=== PATIENT | male | born 1975 | race Caucasian/White ===

== ENCOUNTER 2017-11-10 21:21 | Emergency (ER) | payer MEDICAID, SELFPAY ==
[2017-11-10 21:23] VITALS: BP 159/95; PULSE 70; RESP 18; TEMP 36.6; O2SAT 98; BMI 34.2
[2017-11-10] MEDS: Triamcinolone Acetonide 40 MG/ML Vial IM (21:45)
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
--- NOTE | 2017-11-10 21:46 | ED.DEP ---
ED Disposition - Plan for ED Patient: Disposition: Home or Assisted Living Chief Complaint: Itching Instructions: ED Dermatitis Poison Mallorie Referrals: Daisy Graves MD [Primary Care Provider] - As Needed
[2017-11-10 22:04] VITALS: RESP 18
== END 2017-11-10 22:04 | disposition home or self-care (01) ==
LOC: ED 21:50
PROVIDERS: Emergency Provider Emergency Medicine
DX: L23.7 Allergic contact dermatitis due to plants, except food (principal); T25.221A Burn of second degree of right foot, initial encounter; X17.XXXA Contact with hot engines, machinery and tools, initial encounter; Y93.9 Activity, unspecified; Y92.9 Unspecified place or not applicable; Y99.9 Unspecified external cause status; Q61.3 Polycystic kidney, unspecified; I10 Essential (primary) hypertension; Z79.899 Other long term (current) drug therapy
CPT/HCPCS: 96372; 99282

== ENCOUNTER 2019-02-02 22:18 | Emergency (ER) | payer MEDICAID, SELFPAY ==
[2019-02-02 22:21] VITALS: BP 147/99; PULSE 77; RESP 16; TEMP 36.6; O2SAT 97; BMI 34.0
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
--- NOTE | 2019-02-02 22:40 | RAD_ITS ---
STUDY: X-RAY - RIGHT SHOULDER REASON FOR EXAM: Male, 43 years old. Trauma TECHNIQUE: 4 view(s) of the shoulder. COMPARISON: None. FINDINGS: There is mild degenerative arthrosis of the glenohumeral articulation. Normal acromioclavicular joint. Normal acromion. Normal humeral head and visualized proximal humerus. The soft tissue structures are unremarkable. Normal visualized pulmonary apex. RAD/Shoulder min 2 Views IMPRESSION: Mild degenerative changes of the glenohumeral joint. Electronically Signed: Boyd Blackwell MD at 23:03 EDT , Service support ,
[2019-02-02] MEDS: HYDROcodone Bitartrate/Apap 5/325 Tablet PO (22:41)
[2019-02-02 23:03] VITALS: BP 130/78; PULSE 77; RESP 18; O2SAT 100
== END 2019-02-02 23:03 | disposition home or self-care (01) ==
LOC: ED 22:40
PROVIDERS: Emergency Provider Emergency Medicine; Family Provider Nurse Practitioner Primary Care; PCP Nurse Practitioner Primary Care
DX: S49.91XA Unspecified injury of right shoulder and upper arm, initial encounter (principal); Y00.XXXA Assault by blunt object, initial encounter; Q61.3 Polycystic kidney, unspecified; N18.9 Chronic kidney disease, unspecified; Z79.899 Other long term (current) drug therapy
CPT/HCPCS: 73030; 99283

== ENCOUNTER 2019-06-23 16:49 | Emergency (ER) | payer MEDICAID, SELFPAY ==
[2019-06-23 16:50] VITALS: BP 153/106; PULSE 70; RESP 15; TEMP 36.9; O2SAT 99; BMI 35.6
--- NOTE | 2019-06-23 17:19 | EKG12_ITS ---
Test Reason : ABN LABS Blood Pressure : / mmHG Vent. Rate : 067 BPM Atrial Rate : 067 BPM P-R Int : 146 ms QRS Dur : 084 ms QT Int : 394 ms P-R-T Axes : 034 025 033 degrees QTc Int : 416 ms Normal sinus rhythm Normal ECG Confirmed by TEODORA PATEL ([id number]), story editor ARABELLA MÁRQUEZ ([id number]) on 06/26/2019 3:37:10 PM Referred By: DENICE/JOE Confirmed By:TEODORA PATEL
--- NOTE | 2019-06-23 17:19 | ED.VIS.GEN ---
History of Present Illness Chief Complaint: Abn Labs Informant: Patient, PCP Narrative: Patient was sent from PCPs office secondary to elevated potassium level. Patient was seen in the office today for depression. Due to desire to start a new medication labs were sent. Patient does have a history of chronic renal failure secondary to polycystic kidneys. His creatinine returned at 2.32, and nurse practitioner tells me that his baseline from September 2018 was 2.02. His potassium returned at 6.3. On arrival here patient states he has no physical complaints. He has been drinking plenty of water. 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 - Past Medical History (1) Depression Status: Chronic (2) History of chronic renal failure Status: Chronic (3) History of polycystic kidney disease Status: Chronic Past Medical History - Allergies and Home Meds Allergies/Adverse Reactions: Allergies No Known Allergies Allergy (Verified 02/02/19 22:19) Primary Care Physician: Suzanne Edwards NP-C [Primary Care Provider] - Surgical History: noncontributory Smoking Status: Never smoker Review of Systems General: Denies: Chills, Fever Eyes: Denies: Visual changes - bilaterally ENT: Denies: Bilateral ear pain Cardiovascular: Denies: Chest pain, Palpitations Respiratory: Denies: Dyspnea, Cough Gastrointestinal: Denies: Abdominal pain, Nausea, Vomiting, Diarrhea Genitourinary: Denies: Dysuria Musculoskeletal: Denies: Extremity Pain Neurological: Denies: Headache Hematologic: Denies: Easy bruising, Easy bleeding Allergy: Denies: Uticaria Physical Exam Vital Signs/Narrative: Vital Signs Temp Pulse Resp BP Pulse Ox 06/23/19 16:50 98.5 F 70 15 153/106 H 99 Inital Vital Signs reviewed: Yes General: Well nourished, Well developed Head: Normocephalic ENT: Moist mucous membranes Neck: Supple Cardiovascular: Regular rate, Regular rhythm Respiratory: No distress, CTA bilaterally Abdomen: Soft, Nontender Extremities: Nontender Skin: Normal color, No rash Neurological: Alert, Oriented x3 Psychological: Normal affect Diagnostic/Tx/Re-eval Laboratory Results 06/23/19 06/23/19 17:25 17:25 WBC 7.6 RBC 5.01 Hgb 14.2 Hct 44.6 MCV 89.0 MCH 28.3 MCHC 31.8 L RDW Std Deviation 44.9 H RDW Coeff of Martita 13.8 Plt Count 242 MPV 10.3 Immature Gran % (Auto) 0.400 Neut % (Auto) 53.1 Lymph % (Auto) 31.5 [place] % (Auto) 9.6 Eos % (Auto) 4.7 Baso % (Auto) 0.7 Absolute Neuts (auto) 4.1 Absolute Lymphs (auto) 2.41 Nucleated RBC % 0 Sodium 140 Potassium 5.2 H Chloride 111 H Carbon Dioxide 26.0 Anion Gap 3 L BUN 37 H Creatinine 2.31 H Estim Creat Clear Calc 45.64 Est GFR (MDRD) Af Amer 39 L Est GFR (MDRD) Non-Af 33 L BUN/Creatinine Ratio 16.0 Glucose 107 H Calcium 9.2 - EKG Initial EKG Interpretation: Sinus Rhythm - Sinus at 67 with no acute ischemia. No T wave changes that would be consistent with hyperkalemia. - Medical Decision Making Patient is given a liter of IV fluids. On repeat evaluation is resting comfortably and continues to have no complaints. He will be given outpatient lab order to have labs repeated on Wednesday. He is also referred to Dr. Varghese from nephrology. ED Disposition - Plan for ED Patient: Disposition: Home or Assisted Living Diagnosis: Hyperkalemia Instructions: Hyperkalemia Referrals: Suzanne Edwards NP-Millie [Primary Care Provider] - Tamika Varghese DO [STAFF PHYSICIAN] - 1-2 Weeks Additional Instructions: Your potassium level is at the upper limit of normal tonight. Please have your labs repeated on Wednesday as discussed.
[2019-06-23] MEDS: 0.9% Normal Saline 1,000 ML 1000 ML IV (17:27)
[2019-06-23 17:31] VITALS: BP 146/99; PULSE 72; RESP 14; O2SAT 98
[2019-06-23 17:33] LABS: Absolute Lymphocyte Count 2.41 X10^3/uL (0.83-4.51); Absolute Neutrophil Count 4.1 X10^3/uL (2.0-7.7); Basophil# 0.05 X10^3/uL; Basophil% 0.7 % (0-1); Eosinophil# 0.36 X10^3/uL; Eosinophils% 4.7 % (0-5); Hematocrit 44.6 % (40-54); Hemoglobin 14.2 g/dL (13.0-16.5); Lymphocyte # 2.41 X10^3/ul (4.0); Lymphocyte % 31.5 % (19-41); Mean Corp Hgb Conc 31.8 g/dL (32-36); Mean Corpuscular Hgb 28.3 pg (27.0-32.0); Mean Platelet Vol. 10.3 fl (6.2-12.0); Monocyte# 0.73 X10^3/uL; Monocyte% 9.6 % (0-10); NRBC Flagged by Analyzer 0 % (0-5); Neutrophil # 4.06 X10^3/uL (2.7-7.7); Neutrophil % 53.1 % (47-70); Platelet Count 242 K/mm3 (150-450); RBC Distribution Width CV 13.8 % (11.6-14.6); RBC Distribution Width SD 44.9 fl (35.1-43.9); Red Blood Count 5.01 M/mm3 (4.6-6.2); White Blood Count 7.6 K/mm3 (4.4-11.0)
[2019-06-23 17:53] LABS: Anion Gap 3 (5-15); BUN 37 mg/dL (7-18); Calcium,Total 9.2 mg/dL (8.5-10.1); Chloride 111 mmol/L (98-107); Creatinine, Serum 2.31 mg/dL (0.70-1.30); EST Glomerular Filtration Rate 33 mL/min (>60); Est Glom Filt Rate - Afr Amer 39 mL/min (>60); Estimated Creatinine Clearance 45.64 ml/min; Glucose 107 mg/dL (74-106); Potassium 5.2 mmol/L (3.5-5.1); Sodium Level 140 mmol/L (136-145)
[2019-06-23 18:03] VITALS: BP 162/95; PULSE 64; RESP 18; O2SAT 99
== END 2019-06-23 18:30 | disposition home or self-care (01) ==
PROVIDERS: Emergency Provider Emergency Medicine; PCP Nurse Practitioner Primary Care
DX: E87.5 Hyperkalemia (principal); N18.9 Chronic kidney disease, unspecified; Q61.3 Polycystic kidney, unspecified; F32.9 Major depressive disorder, single episode, unspecified; Z79.899 Other long term (current) drug therapy
CPT/HCPCS: 80048; 85025; 93005; 96360; 99284; J7030; A4216

== ENCOUNTER → 2019-09-13 12:57 | Outpatient (CLI) | payer MEDICAID, SELFPAY ==
[2019-09-13 13:49] LABS: Hematocrit 42.3 % (40-54); Hemoglobin 13.3 g/dL (13.0-16.5); Mean Corp Hgb Conc 31.4 g/dL (32-36); Mean Corpuscular Hgb 27.8 pg (27.0-32.0); Mean Corpuscular Volume 88.5 fL (80-94); Mean Platelet Vol. 10.9 fl (6.2-12.0); Platelet Count 270 K/mm3 (150-450); RBC Distribution Width CV 13.9 % (11.6-14.6); RBC Distribution Width SD 44.3 fl (35.1-43.9); Red Blood Count 4.78 M/mm3 (4.6-6.2); White Blood Count 9.6 K/mm3 (4.4-11.0)
[2019-09-13 14:25] LABS: Vitamin D,25 Hydroxy 25.1 ng/mL
[2019-09-13 14:32] LABS: ALB/GLOB Ratio 0.7 RATIO (0.9-2.4); AST(SGOT) 25 U/L (15-37); Alanine Aminotransfer ALT/SGPT 27 U/L (16-61); Albumin, Serum 3.3 g/dL (3.2-5.0); Alkaline Phosphatase 73 U/L (45-117); Anion Gap 7 (5-15); BUN 46 mg/dL (7-18); BUN/Creat Ratio 17.2 RATIO (10-20); Calcium,Total 9.4 mg/dL (8.5-10.1); Chloride 107 mmol/L (98-107); Cholesterol 203 mg/dL (200); Creatinine, Serum 2.67 mg/dL (0.70-1.30); EST Glomerular Filtration Rate 28 mL/min (>60); Est Glom Filt Rate - Afr Amer 33 mL/min (>60); Globulin 4.5 g/dL (2.2-4.2); Glucose 125 mg/dL (74-106); High Density Lipoprotein 36 mg/dL; Potassium 4.6 mmol/L (3.5-5.1); Protein, Total 7.8 g/dL (6.4-8.2); Sodium Level 140 mmol/L (136-145); T4 Free Direct 0.92 ng/dL (0.76-1.46); Thyroid Stim Hormone (TSH) 1.04 uIU/mL (0.358-3.74); Triglycerides 233 mg/dL; Very Low Density Lipoprotein 47 mg/dL (5-40)
== END ==
PROVIDERS: PCP Nurse Practitioner Primary Care; Referring Provider Nurse Practitioner Primary Care; Visit Provider Nurse Practitioner Primary Care
DX: I12.9 Hypertensive chronic kidney disease with stage 1 through stage 4 chronic kidney disease, or unspecified chronic kidney disease (principal); N18.3 Chronic kidney disease, stage 3 (moderate); E03.9 Hypothyroidism, unspecified
CPT/HCPCS: 36415; 80053; 80061; 82306; 84439; 84443; 85027

== ENCOUNTER → 2019-10-11 11:19 | Outpatient (CLI) | payer MEDICAID, SELFPAY ==
[2019-10-11 11:42] LABS: Color, Urine Yellow (Yellow); Glucose, Dipstick Normal (Normal); Ketone-Dipstick Negative (Negative); Leukocyte Esterase-Dipstick 25 /ul (Negative); Nitrite-Dipstick Negative (Negative); Occult Blood-Urine 25 /ul (Negative); Protein-Dipstick 100 mg/dl (Negative); Urine Bilirubin Dipstick Negative (Negative); Urine Clarity Sl. Cloudy (Clear); Urine Urobilinogen Normal (Normal)
[2019-10-11 11:43] LABS: Hematocrit 43.7 % (40-54); Hemoglobin 13.6 g/dL (13.0-16.5); Mean Corp Hgb Conc 31.1 g/dL (32-36); Mean Corpuscular Volume 90.1 fL (80-94); Mean Platelet Vol. 10.6 fl (6.2-12.0); Platelet Count 284 K/mm3 (150-450); RBC Distribution Width CV 13.6 % (11.6-14.6); Red Blood Count 4.85 M/mm3 (4.6-6.2); White Blood Count 9.1 K/mm3 (4.4-11.0)
[2019-10-11 11:54] LABS: Protein, Urine (Random) 82.1 mg/dL (<11.9); Protein:Creat Ratio 1781 mg/g CRE (0-200)
[2019-10-11 12:04] LABS: Uric Acid 4.2 mg/dL (3.5-7.2)
== END ==
PROVIDERS: PCP Nurse Practitioner Primary Care; Referring Provider Student in an Organized Health Care Education/Training Program; Visit Provider Student in an Organized Health Care Education/Training Program
DX: Q61.3 Polycystic kidney, unspecified (principal)
CPT/HCPCS: 36415; 81002; 82570; 84156; 84550; 85027

== ENCOUNTER → 2020-05-20 10:06 | Outpatient (CLI) | payer MEDICAID, SELFPAY ==
[2020-05-20 10:54] LABS: Absolute Lymphocyte Count 2.16 X10^3/uL (0.83-4.51); Absolute Neutrophil Count 5.9 X10^3/uL (2.0-7.7); Basophil# 0.06 X10^3/uL; Basophil% 0.6 % (0-1); Eosinophil# 0.54 X10^3/uL; Eosinophils% 5.6 % (0-5); Hematocrit 41.4 % (40-54); Hemoglobin 12.9 g/dL (13.0-16.5); Lymphocyte # 2.16 X10^3/ul (4.0); Lymphocyte % 22.3 % (19-41); Mean Corp Hgb Conc 31.2 g/dL (32-36); Mean Corpuscular Hgb 27.9 pg (27.0-32.0); Mean Corpuscular Volume 89.6 fL (80-94); Mean Platelet Vol. 10.8 fl (6.2-12.0); Monocyte# 1.03 X10^3/uL; Monocyte% 10.6 % (0-10); NRBC Flagged by Analyzer 0 % (0-5); Neutrophil # 5.87 X10^3/uL (2.7-7.7); Neutrophil % 60.6 % (47-70); Platelet Count 282 K/mm3 (150-450); RBC Distribution Width CV 13.6 % (11.6-14.6); RBC Distribution Width SD 44.8 fl (35.1-43.9); Red Blood Count 4.62 M/mm3 (4.6-6.2); White Blood Count 9.7 K/mm3 (4.4-11.0)
[2020-05-20 11:24] LABS: PTHIN 97.5 pg/mL (18.4-80.1)
[2020-05-20 11:29] LABS: Protein, Urine (Random) 160.6 mg/dL (<11.9); Protein:Creat Ratio 2996 mg/g CRE (0-200); Vitamin D,25 Hydroxy 15.4 ng/mL
[2020-05-20 11:53] LABS: Albumin, Serum 3.3 g/dL (3.2-5.0); BUN 42 mg/dL (7-18); BUN/Creat Ratio 11.7 RATIO (10-20); Calcium,Total 9.7 mg/dL (8.5-10.1); Chloride 110 mmol/L (98-107); EST Glomerular Filtration Rate 19 mL/min (>60); Est Glom Filt Rate - Afr Amer 24 mL/min (>60); Ferritin 142 ng/mL (26-388); Glucose 129 mg/dL (74-106); Iron 82 ug/dL (65-175); Iron Binding Capacity,Total 335 ug/dL (250-450); PERCENT IRON SATURATION 24.5 % (15.0-55.0); Phosphorus 4.7 mg/dL (2.5-4.9); Potassium 5.1 mmol/L (3.5-5.1); Rheumatoid Factor < 10.0 IU/mL (<15); Sodium Level 140 mmol/L (136-145); T4 Free Direct 0.89 ng/dL (0.76-1.46); Thyroid Stim Hormone (TSH) 2.66 uIU/mL (0.358-3.74); Uric Acid 3.8 mg/dL (3.5-7.2)
[2020-05-21 15:21] LABS: ANTINUCLEAR ANTIBODIES DIRECT Negative (Negative)
== END ==
PROVIDERS: PCP Nurse Practitioner Primary Care; Referring Provider Nurse Practitioner Primary Care; Visit Provider Nurse Practitioner Primary Care
DX: M25.50 Pain in unspecified joint (principal); E03.9 Hypothyroidism, unspecified; Q61.3 Polycystic kidney, unspecified; E55.9 Vitamin D deficiency, unspecified; M10.9 Gout, unspecified
CPT/HCPCS: 36415; 80069; 82306; 82570; 82728; 83540; 83550; 83970; 84156; 84439; 84443; 84550; 85025; 86038; 86431

== ENCOUNTER → 2020-06-20 12:14 | Outpatient (CLI) | payer MEDICAID, SELFPAY ==
[2020-06-20 13:14] LABS: Absolute Lymphocyte Count 1.94 X10^3/uL (0.83-4.51); Absolute Neutrophil Count 5.8 X10^3/uL (2.0-7.7); Basophil# 0.09 X10^3/uL; Eosinophil# 0.46 X10^3/uL; Eosinophils% 5.2 % (0-5); Hematocrit 43.4 % (40-54); Hemoglobin 13.2 g/dL (13.0-16.5); Lymphocyte # 1.94 X10^3/ul (4.0); Lymphocyte % 21.7 % (19-41); Mean Corp Hgb Conc 30.4 g/dL (32-36); Mean Corpuscular Hgb 27.3 pg (27.0-32.0); Mean Corpuscular Volume 89.9 fL (80-94); Mean Platelet Vol. 10.7 fl (6.2-12.0); Monocyte# 0.58 X10^3/uL; Monocyte% 6.5 % (0-10); NRBC Flagged by Analyzer 0 % (0-5); Neutrophil # 5.82 X10^3/uL (2.7-7.7); Neutrophil % 65.3 % (47-70); Platelet Count 307 K/mm3 (150-450); RBC Distribution Width CV 13.9 % (11.6-14.6); RBC Distribution Width SD 46.5 fl (35.1-43.9); Red Blood Count 4.83 M/mm3 (4.6-6.2); White Blood Count 8.9 K/mm3 (4.4-11.0)
[2020-06-20 13:23] LABS: Protein, Urine (Random) 136.4 mg/dL (<11.9); Protein:Creat Ratio 2312 mg/g CRE (0-200)
[2020-06-20 13:53] LABS: Anion Gap 4 (5-15); BUN 56 mg/dL (7-18); BUN/Creat Ratio 15.1 RATIO (10-20); Calcium,Total 9.8 mg/dL (8.5-10.1); Chloride 109 mmol/L (98-107); EST Glomerular Filtration Rate 19 mL/min (>60); Est Glom Filt Rate - Afr Amer 23 mL/min (>60); Glucose 156 mg/dL (74-106); Potassium 5.2 mmol/L (3.5-5.1); Sodium Level 139 mmol/L (136-145)
[2020-06-20 13:55] LABS: PTHIN 215.3 pg/mL (18.4-80.1)
[2020-06-20 13:59] LABS: Vitamin D,25 Hydroxy 19.8 ng/mL
== END ==
PROVIDERS: PCP Nurse Practitioner Primary Care; Referring Provider Student in an Organized Health Care Education/Training Program; Visit Provider Student in an Organized Health Care Education/Training Program
DX: N18.4 Chronic kidney disease, stage 4 (severe) (principal); E55.9 Vitamin D deficiency, unspecified
CPT/HCPCS: 36415; 80048; 82306; 82570; 83970; 84156; 85025

== ENCOUNTER 2021-04-23 12:18 | Inpatient (IN) | payer MEDICAID, SELFPAY ==
[2021-04-23 12:19] VITALS: BP 132/88; PULSE 84; RESP 19; TEMP 37.7; O2SAT 93; BMI 35.9
--- NOTE | 2021-04-23 12:24 | EDS_ITS ---
HPI History of Present Illness Chief Complaint: General Illness Informant: patient Onset/Context/Timing Onset: Days Context: Gradual Onset Timing: Continuous Current Severity: Mild Maximum Severity: Moderate Narrative Narrative: 45-year-old male unvaccinated day 8 of symptoms including cough, fever and chills and body aches. No nausea or vomiting. He had 1 day loose stools which is since resolved. History of hypertension, gout and chronic kidney disease. Prior similar symptoms: No Recent Illness/Hospitalization: No PFSH PFSH Medical History Asthma Depression Hypertension Hypothyroidism Migraines Polycystic kidney disease Home Medications atenolol 50 mg PO DAILY 04/08/13 [History Last Taken 11/10/17] paroxetine HCl [Paxil] 40 mg PO DAILY 04/08/13 [History Last Taken 11/10/17] pravastatin 80 mg PO DAILY 11/10/17 [History Last Taken 11/10/17] losartan 25 mg PO DAILY 02/02/19 [History Last Taken Unknown] allopurinol 300 mg PO DAILY 04/23/21 [History Last Taken Unknown] amlodipine 2.5 mg PO DAILY 04/23/21 [History Last Taken Unknown] famotidine 20 mg PO QHS 04/23/21 [History Last Taken Unknown] levothyroxine 100 mcg PO DAILY 04/23/21 [History Last Taken Unknown] trazodone 50 mg PO DAILY 04/23/21 [History Last Taken Unknown] Allergy/AdvReac Type Severity Reaction Status Date / Time No Known Allergies Allergy Verified 04/23/21 12:22 Social History Smoking Status: Never smoker ROS ROS ED ROS Narrative Cough, fever, chills, body aches. Review of Systems ROS Unobtainable: Denies due to encephalopathy Constitutional Constitutional ED: Reports chills and fever(s) Eyes Eyes: Denies change in vision ENT ENT ED: Denies ear pain Cardiovascular Cardiovascular: Denies chest pain or palpitations Respiratory/Chest Respiratory/Chest: Reports cough and dyspnea Gastrointestinal Gastrointestinal: Reports diarrhea; Denies abdominal pain, nausea or vomiting Genitourinary Genitourinary ED: Denies dysuria Musculoskeletal Musculoskeletal: Reports myalgias Integumentary Denies rash Neurologic Neurologic: Reports headache(s) Psychiatric Psychiatric: Denies depression Endocrine Endocrinology: Denies polyuria Allergic/Immunologic Allergic/Immunologic ED: Denies urticaria EXAM Physical Exam Narrative Exam Narrative: 45-year-old male no acute distress. Vital signs stable. Pulse ox 93% on room air no hypoxia. H EENT dry mucous membranes. No erythema. Neck nontender no lymphadenopathy. No JVD. Lungs clear to auscultation. Heart regular rhythm no murmur rate about 85. Abdomen obese soft nontender normal bowel sounds no peritoneal signs. Moving all 4 extremities. Calves are nontender without edema or cords. Neurologically awake and alert with no focal motor deficits. Const Vital Signs: 04/23/21 12:19 04/23/21 12:27 04/23/21 14:02 Temperature 99.9 F H 99.9 F H Temperature Source Oral Temporal Pulse Rate 84 85 Respiratory Rate 19 H 19 H Respiratory Effort Normal Non-Labored Respiratory Pattern Normal Blood Pressure 132/88 H 111/73 Blood Pressure Mean 102 85 Pulse Ox 93 97 Oxygen Delivery Method Room Air Room Air Positive well nourished, well developed and obese; Negative for cachectic, contractures or unkempt General Appearance ED: well developed and NAD; Negative for unkempt, cachectic or contractures Nutritional Appearance: obese; Negative for cachectic HEENT Reports dry mucous membranes Negative for trauma or tenderness Mouth ED: Yes dry mucous membranes Mouth: dry mucous membranes Eyes PERRL and EOMs intact bilaterally Neck no lymphadenopathy, supple and no JVD General: Negative for tenderness Chest Wall inspection of chest normal and palpation of chest normal Resp normal respiratory effort and clear to auscultation bilaterally Auscultation: Negative for rales, rhonchi or wheezes Cardio regular rate, regular rhythm, S1 normal heart sound, S2 normal heart sound and no murmurs GI normal to inspection, nondistended, normoactive bowel sounds, non-tender, non- distended and no masses Auscultation: normoactive bowel sounds Palpation: soft; Negative for tender or guarding Back/Spine no CVA tenderness General Back: Negative for CVA tenderness Cervical Spine: Negative for cervical spine tenderness Extremity normal to inspection General Extremety ED: Negative for edema or tenderness General Extremity: Negative for edema Neuro oriented x3 and CN's II-XII intact bilaterally Sensorium / Orientation: alert; Negative for orientation impaired, lethargic or stuporous Motor Exam: strength 5/5 throughout Psych mental status grossly normal Appearance: Negative for unkempt Mood & Affect: Negative for depressed or tearful Skin no rashes or lesions noted, no wounds and No skin turgor normal General Skin Exam: Negative for elasticity normal MDM MDM MDM Narrative Medical decision making narrative: 45-year-old male highly suspicious for Covid. Will be treated with IV fluids. Repeat exam patient is feeling somewhat better at 3:05 PM. He is receiving IV fluids he is on a second liter. He also received IV Decadron for his Covid. He will be admitted to the hospital for his acute kidney injury and acute renal failure along with his Covid. I have already spoken to the hospitalist he is already placed the admission. Lab Data Attestation: I reviewed the patient's lab results. Lab results narrative: CBC normal white count 8. Hemoglobin 12.9. Electrolytes sodium 132 gap 14 his BUN is 97 his creatinine is 10.3 previously was 3.7 so is got acute on chronic renal insufficiency due to acute renal failure. His potassium is baseline of 4.7. Glucose of 106. Labs: Laboratory Results - last 24 hr 04/23/21 04/23/21 12:05 12:05 WBC 8.8 RBC 4.62 Hgb 12.9 L Hct 40.0 MCV 86.6 MCH 27.9 MCHC 32.3 RDW Std Deviation 44.6 H RDW Coeff of Martita 14.0 Plt Count 227 MPV 11.7 Immature Gran % (Auto) 0.300 Neut % (Auto) 72.2 H Lymph % (Auto) 12.8 L [place] % (Auto) 14.6 H Eos % (Auto) 0.0 Baso % (Auto) 0.1 Absolute Neuts (auto) 6.3 Absolute Lymphs (auto) 1.12 Nucleated RBC % 0 Sodium 132 L Potassium 4.7 Chloride 98 Carbon Dioxide 20.0 L Anion Gap 14 BUN 97 H Creatinine 10.30 H* Estim Creat Clear Calc 10.02 Est GFR (MDRD) Af Amer 7 L Est GFR (MDRD) Non-Af 6 L BUN/Creatinine Ratio 9.4 L Glucose 106 Calcium 8.9 Radiography Chest X-Ray - ED: 1 View, Read by ED Physician, Right Infiltrate and Left Infiltrate Diagnostic Testing: Clinical Impression(s) from Imaging Studies Chest X-Ray 04/23/21 12:45 IMPRESSION: Multifocal infiltrates with features commonly reported with viral pneumonia. Electronically Signed: Ag Waters MD ([place]) at 13:00 EST , Service support , Chest x-ray portable, single view interpreted both by myself and the radiologist shows bilateral infiltrates consistent with Covid pneumonitis. Discharge Plan Dx/Rx/DC Orders Clinical Impression: BEST (acute kidney injury), History of chronic renal failure, COVID-19 Disposition Disposition: Acute Care Hospital [facility] Discharge Date/Time: 04/23/21 15:08
[2021-04-23] MEDS: 0.9% Normal Saline 1,000 ML 1000 ML IV (12:38)
--- NOTE | 2021-04-23 12:45 | RAD_ITS ---
STUDY: X-RAY CHEST REASON FOR EXAM: Male, 45 years old. cough TECHNIQUE: AP COMPARISON: 06/13/2015 FINDINGS: EKG leads project over the chest. Multifocal infiltrates with features commonly reported with viral pneumonia. There is no demonstrated pleural abnormality. Normal size heart. Normal mediastinum and edson. Normal visualized pulmonary arteries. Normal visualized aortic arch and descending thoracic aorta. Normal visualized thoracic spine. Normal visualized ribs, clavicles, and shoulders. There is no demonstrated abnormality of the visualized soft tissue structures of the upper abdomen. RAD/Chest 1 View (Portable) IMPRESSION: Multifocal infiltrates with features commonly reported with viral pneumonia. Electronically Signed: Ag Waters MD ([place]) at 13:00 EST , Service support ,
[2021-04-23 12:49] LABS: Absolute Lymphocyte Count 1.12 X10^3/uL (0.83-4.51); Absolute Neutrophil Count 6.3 X10^3/uL (2.0-7.7); Basophil# 0.01 X10^3/uL; Basophil% 0.1 % (0-1); Hemoglobin 12.9 g/dL (13.0-16.5); Lymphocyte # 1.12 X10^3/ul (0.83-4.51); Lymphocyte % 12.8 % (19-41); Mean Corp Hgb Conc 32.3 g/dL (32-36); Mean Corpuscular Hgb 27.9 pg (27.0-32.0); Mean Corpuscular Volume 86.6 fL (80-94); Mean Platelet Vol. 11.7 fl (6.2-12.0); Monocyte# 1.28 X10^3/uL; Monocyte% 14.6 % (0-10); NRBC Flagged by Analyzer 0 % (0-5); Neutrophil # 6.34 X10^3/uL (2.7-7.7); Neutrophil % 72.2 % (47-70); Platelet Count 227 K/mm3 (150-450); RBC Distribution Width SD 44.6 fl (35.1-43.9); Red Blood Count 4.62 M/mm3 (4.6-6.2); White Blood Count 8.8 K/mm3 (4.4-11.0)
[2021-04-23 13:13] LABS: Anion Gap 14 (5-15); BUN 97 mg/dL (7-18); BUN/Creat Ratio 9.4 RATIO (10-20); Calcium,Total 8.9 mg/dL (8.5-10.1); Chloride 98 mmol/L (98-107); EST Glomerular Filtration Rate 6 mL/min (>60); Est Glom Filt Rate - Afr Amer 7 mL/min (>60); Estimated Creatinine Clearance 10.02 ml/min; Glucose 106 mg/dL (74-106); Potassium 4.7 mmol/L (3.5-5.1); Sodium Level 132 mmol/L (136-145)
[2021-04-23] MEDS: 0.9% Normal Saline 1,000 ML 999 ML IV (13:29)
[2021-04-23] MEDS: dexAMETHasone 10 MG/ML Vial IV (13:29)
--- NOTE | 2021-04-23 13:42 | NURSING ---
MED SURG GEMINI CARLINID, ACUTE RENAL FAILURE, DEHYDRATION, HTN
[2021-04-23 14:02] VITALS: BP 111/73; PULSE 85; RESP 19; TEMP 37.7; O2SAT 97
--- NOTE | 2021-04-23 14:14 | PCM.HP.STD ---
HPI - General General Date of Admission: 04/23/21 HPI Narrative KULWINDER JEAN, is a 45 M who presents with 1 week history of not feeling well. Presented to the emergency room and was not hypoxic but was noted to have acute kidney injury. Patient's creatinine was 10. Last available creatinine was 3.7 back in June 20 of this year. Patient has been urinating okay but just feels unwell. Patient normally sees a semaphore operator at the [facility] in [place]. Patient was positive for COVID-19. He is unvaccinated for Covid. [facility] Medical History Asthma Depression Hypertension Hypothyroidism Migraines Polycystic kidney disease Home Medications atenolol 50 mg PO DAILY 04/08/13 [History Last Taken 11/10/17] paroxetine HCl [Paxil] 40 mg PO DAILY 04/08/13 [History Last Taken 11/10/17] pravastatin 80 mg PO DAILY 11/10/17 [History Last Taken 11/10/17] losartan 25 mg PO DAILY 02/02/19 [History Last Taken Unknown] allopurinol 300 mg PO DAILY 04/23/21 [History Last Taken Unknown] amlodipine 2.5 mg PO DAILY 04/23/21 [History Last Taken Unknown] famotidine 20 mg PO QHS 04/23/21 [History Last Taken Unknown] levothyroxine 100 mcg PO DAILY 04/23/21 [History Last Taken Unknown] trazodone 50 mg PO DAILY 04/23/21 [History Last Taken Unknown] Allergy/AdvReac Type Severity Reaction Status Date / Time No Known Allergies Allergy Verified 04/23/21 12:22 Social History Smoking Status: Never smoker ROS ROS Narrative All review of systems were negative except as mentioned above in the history of present illness and the other review of systems. Vital Signs Vital Signs Vital Signs: 04/23/21 12:19 04/23/21 12:27 04/23/21 14:02 Temperature 37.7 C H 37.7 C H Temperature Source Oral Temporal Pulse Rate 84 85 Respiratory Rate 19 H 19 H Respiratory Effort Normal Non-Labored Respiratory Pattern Normal Blood Pressure 132/88 H 111/73 Blood Pressure Mean 102 85 Pulse Ox 93 97 Oxygen Delivery Method Room Air Room Air Weight Weight: 123.3 kg Body Mass Index (BMI) 35.9 Physical Exam Const alert Constitutional Narrative: Listless. Afebrile. HEENT normocephalic and head/scalp atraumatic Neck no lymphadenopathy and supple Resp normal respiratory effort, no retractions, no use of accessory muscles and clear to auscultation bilaterally Cardio regular rate, regular rhythm, S1 normal heart sound and S2 normal heart sound GI normal to inspection, nondistended, normoactive bowel sounds, soft to palpation, non-tender and non-distended GI Narrative: Protuberant abdomen. No hepatosplenomegaly. Extremity normal to inspection Skin no rashes or lesions noted Neuro Sensorium / Orientation: awake and alert Psych Psych Narrative: Flat affect. Minimal eye contact. Results Lab / Micro Data Attestation: I reviewed the patient's lab results. Result Diagrams: 04/23/21 12:05 04/23/21 12:05 Labs: Laboratory Results - last 24 hr 04/23/21 12:05: WBC 8.8, RBC 4.62, Hgb 12.9 L, Hct 40.0, MCV 86.6, MCH 27.9, MCHC 32.3, RDW Std Deviation 44.6 H, RDW Coeff of Martita 14.0, Plt Count 227, MPV 11.7, Immature Gran % (Auto) 0.300, Neut % (Auto) 72.2 H, Lymph % (Auto) 12.8 L, [place] % (Auto) 14.6 H, Eos % (Auto) 0.0, Baso % (Auto) 0.1, Absolute Neuts (auto) 6.3, Absolute Lymphs (auto) 1.12, Nucleated RBC % 0 04/23/21 12:05: Sodium 132 L, Potassium 4.7, Chloride 98, Carbon Dioxide 20.0 L, Anion Gap 14, BUN 97 H, Creatinine 10.30 H*, Estim Creat Clear Calc 10.02, Est GFR (MDRD) Af Amer 7 L, Est GFR (MDRD) Non-Af 6 L, BUN/Creatinine Ratio 9.4 L, Glucose 106, Calcium 8.9 Micro: Microbiology 04/23/21 12:22 Nasal Secretion SARS-CoV-2 Antigen (Rapid) - Final SARS-CoV-2 (COVID 19) Radiology Impression Chest X-Ray 04/23/21 12:45 IMPRESSION: Multifocal infiltrates with features commonly reported with viral pneumonia. Electronically Signed: Ag Waters MD ([place]) at 13:00 EST , Service support , Assessment & Plan Assessment/Plan (1) BEST (acute kidney injury): (2) COVID-19: PLAN: 1. Acute kidney injury On chronic kidney disease. Unclear of patient's previous stage but probably of 4 based on his creatinine back from June Patient received IV fluids emergency room amplitude with IV fluids Check urinalysis, check urine sodium and creatinine Check kidney ultrasound Nephrology consultation, Dr. Varghese notified Check records from [facility] for the nephrology notes. 2. COVID-19 Patient was not hypoxic but did have a pulse ox of 93% He did receive 10 mg of IV dexamethasone. We will continue with 6 mg of dexamethasone for total of 9 more days. Patient not a candidate for remdesivir as he is currently not hypoxic and is acute kidney injury Patient is onset was the eighth. Patient will need to quarantine through the . Unvaccinated 3. Morbid obesity BMI about 35.9 Complicates overall care and recovery 4. VTE prophylaxis with subcu heparin Charges/Coding Visit Charges Inpatient E&M: 73013 Init Hosp L3
[2021-04-23 14:51] VITALS: BMI 35.6
--- NOTE | 2021-04-23 14:51 | US_ITS ---
STUDY: RENAL ULTRASOUND - COMPLETE REASON FOR EXAM: Male, 45 years old. EBST TECHNIQUE: Ultrasound evaluation of the kidneys was performed with real-time and static davis-scale imaging. COMPARISON: None. FINDINGS: RIGHT KIDNEY: Normal location of the right kidney, which is increased in size. The right kidney measures 20 x 12.2 x 9.7 cm. There is a normal cortex of the right kidney. The renal cortex measures 1.2 cm. Numerous right-sided intrarenal cysts, largest measuring 5.1 x 4.1 x 2.5 cm. There are no right renal calculi. There is no right hydronephrosis. DISTAL RIGHT URETER: There is non-visualization of the distal right ureter. There is no demonstrated right ureterovesical junction calculus. There is a visualized right ureteral jet. LEFT KIDNEY: Normal location of the left kidney, which is increased in size. The left kidney measures 21.1 x 11.7 x 9.8 cm. There is a normal cortex of the left kidney. The renal cortex measures 1.0 cm. There are numerous anechoic structure compatible with simple cyst within the left kidney largest measuring 5.7 x 5.6 x 5.7 cm. There are no left renal calculi. There is no left hydronephrosis. DISTAL LEFT URETER: There is non-visualization of the distal left ureter. There is no demonstrated left ureterovesical junction calculus. There is a visualized left ureteral jet. BLADDER: The urinary bladder has a volume of 233.2 ml. There is thickening of urinary bladder wall diffusely. US/Kidney and Bladder IMPRESSION: Numerous bilateral simple renal cysts compatible with polycystic kidney disease. Mild thickening of the urinary bladder wall, cannot exclude cystitis. If this represents a clinical concern, recommend follow-up with urinalysis. Electronically Signed: Daisy Gaitan MD at 0:37 EST , Service support ,
[2021-04-23 15:02] VITALS: BP 136/78; PULSE 80; RESP 18; TEMP 37.5; O2SAT 96
[2021-04-23] MEDS: 0.9% Normal Saline 1,000 ML 150 ML IV (15:37)
[2021-04-23 16:20] LABS: Bacteria 0 SEEN /hpf (None Seen); Mucous, Urine 0 SEEN /hpf (<or=2+); Squamous Epithelial Cells - UA 0 SEEN /hpf (0-5); White Blood Cells 0 SEEN /hpf (0-5)
[2021-04-23 16:23] LABS: Color, Urine Yellow (Yellow); Glucose, Dipstick 50 mg/dl (Normal); Ketone-Dipstick Negative (Negative); Leukocyte Esterase-Dipstick Negative /ul (Negative); Nitrite-Dipstick Negative (Negative); Occult Blood-Urine 150 /ul (Negative); Protein-Dipstick 100 mg/dl (Negative); Urine Bilirubin Dipstick Negative (Negative); Urine Clarity Clear (Clear); Urine Urobilinogen Normal (Normal)
[2021-04-23 16:36] LABS: Urine Sodium 43 mmol/L (Not Establ.)
[2021-04-23 16:46] LABS: Red Blood Cells-Urine 0-5 SEEN /hpf (0-5)
[2021-04-23 22:14] VITALS: BP 115/74; PULSE 77; RESP 18; TEMP 37; O2SAT 96
[2021-04-23] MEDS: Heparin Injection (Vial) 5,000 UNIT/ML VIAL 5000 UNIT SC (22:22)
[2021-04-23] MEDS: Pravastatin 80 MG Tablet PO (22:24)
[2021-04-24 02:24] VITALS: BP 110/69; PULSE 71; RESP 16; TEMP 36.8; O2SAT 96
[2021-04-24 06:12] LABS: Absolute Lymphocyte Count 0.44 X10^3/uL (0.83-4.51); Hematocrit 34.1 % (40-54); Lymphocyte # 0.44 X10^3/ul (0.83-4.51); Lymphocyte % 11.7 % (19-41); Mean Corp Hgb Conc 32.3 g/dL (32-36); Mean Corpuscular Volume 86.8 fL (80-94); Mean Platelet Vol. 11.6 fl (6.2-12.0); Monocyte# 0.28 X10^3/uL; Monocyte% 7.4 % (0-10); NRBC Flagged by Analyzer 0 % (0-5); Neutrophil # 3.04 X10^3/uL (2.7-7.7); Neutrophil % 80.6 % (47-70); POSITIVE DIFFERENTIAL YES; Platelet Count 217 K/mm3 (150-450); RBC Distribution Width CV 13.7 % (11.6-14.6); RBC Distribution Width SD 43.4 fl (35.1-43.9); Red Blood Count 3.93 M/mm3 (4.6-6.2); White Blood Count 3.8 K/mm3 (4.4-11.0)
[2021-04-24 06:17] LABS: Differential Indicated SCAN CRITERIA MET
[2021-04-24 07:01] LABS: ALB/GLOB Ratio 0.6 RATIO (0.9-2.4); AST(SGOT) 30 U/L (15-37); Alanine Aminotransfer ALT/SGPT 21 U/L (16-61); Albumin, Serum 2.5 g/dL (3.2-5.0); Alkaline Phosphatase 49 U/L (45-117); Anion Gap 14 (5-15); BUN 100 mg/dL (7-18); BUN/Creat Ratio 10.4 RATIO (10-20); Chloride 105 mmol/L (98-107); Creatinine, Serum 9.58 mg/dL (0.70-1.30); EST Glomerular Filtration Rate 6 mL/min (>60); Est Glom Filt Rate - Afr Amer 8 mL/min (>60); Estimated Creatinine Clearance 10.77 ml/min; Globulin 4.4 g/dL (2.2-4.2); Glucose 152 mg/dL (74-106); Potassium 5.6 mmol/L (3.5-5.1); Protein, Total 6.9 g/dL (6.4-8.2); Sodium Level 134 mmol/L (136-145); Thyroid Stim Hormone (TSH) 0.62 uIU/mL (0.358-3.74)
[2021-04-24 09:05] VITALS: BP 117/74; PULSE 73; RESP 16; TEMP 36.9; O2SAT 95
--- NOTE | 2021-04-24 09:11 | CON.PCM.RE_ITS ---
Assessment & Plan Assessment/Plan (1) BEST (acute kidney injury): PLAN: acute on CKD Stage 4 due to COVID infection, dehydration. Continue iv fluids. Discussed with pt may need dialysis if renal fxn does not improve. Baseline creatinine 5.1 in December 2020. Followed by [facility] nephrology dept; last visit at [facility] in December for kidney transplant evaluation. Seen by me in 2014 x1, noncompliance with follow up. (2) CKD (chronic kidney disease), stage IV: PLAN: due to PCKD with large kidneys bilat RK 20cm, LK 21cm. Followed by [facility] nephrology dept. Evaluated for kidney tx (3) History of polycystic kidney disease: (4) COVID-19: PLAN: with continued symptoms on steroids. (5) Hyperkalemia: PLAN: due to renal failure follow renal diet (6) Metabolic acidosis: PLAN: due to renal failure (7) Hypertension: PLAN: stable HPI Consult Data Date of Consult: 04/26/21 HPI Narrative HPI Narrative: KULWINDER JEAN, is a 45 M who presents with one week history of dyspnea with minimal exertion, fatigue, weakness and change in appetite. He is COVID positive, nonvaccinated, in ED and was started on decadron. 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 He was last seen in December for preemptive [facility] kidney transplant evaluation. Creatinine 5.13 on 12/11/20 from [facility]. He does not have dialysis access placed. Creatinine 3.7 in Jun 2020, now at 10. He continues to have SOB, anorexia. He admits to fever, chills at home, nonproductive cough. [facility] Medical History Asthma Depression Hypertension Hypothyroidism Migraines Polycystic kidney disease Home Medications atenolol 50 mg PO DAILY 04/08/13 [History Last Taken 11/10/17] paroxetine HCl [Paxil] 40 mg PO DAILY 04/08/13 [History Last Taken 11/10/17] pravastatin 80 mg PO DAILY 11/10/17 [History Last Taken 11/10/17] losartan 25 mg PO DAILY 02/02/19 [History Last Taken Unknown] allopurinol 300 mg PO DAILY 04/23/21 [History Last Taken Unknown] amlodipine 2.5 mg PO DAILY 04/23/21 [History Last Taken Unknown] famotidine 20 mg PO QHS 04/23/21 [History Last Taken Unknown] levothyroxine 100 mcg PO DAILY 04/23/21 [History Last Taken Unknown] trazodone 50 mg PO DAILY 04/23/21 [History Last Taken Unknown] Allergy/AdvReac Type Severity Reaction Status Date / Time No Known Allergies Allergy Verified 04/23/21 12:22 Social History Smoking Status: Never smoker ROS Constitutional Constitutional: Reports anorexia, chills, malaise and poor appetite Eyes Eyes: Denies change in vision ENT HEENT: Denies nasal congestion Cardiovascular Cardiovascular: Reports dyspnea, dyspnea at rest, dyspnea on exertion and nausea; Denies chest pain, dizziness, edema, leg edema, orthopnea or palpitations Respiratory/Chest Respiratory/Chest: Reports cough, dry cough and dyspnea on exertion; Denies wheezing Gastrointestinal Gastrointestinal: Reports anorexia and nausea; Denies abdominal pain, diarrhea, taste impaired or vomiting Genitourinary Genitourinary: Reports other Details: PCKD ; Denies dysuria Musculoskeletal Musculoskeletal: Denies back pain or tremors Integumentary Integumentary: Denies unusual bruising Neurologic Neurologic: Denies abnormal gait or frequent falls Psychiatric Psychiatric: Reports anxiety and depression Endocrine Endocrinology: Denies polydipsia or polyuria Hematologic/Lymphatic Hematologic/Lymphatic: Reports none; Denies easy bruising Allergic/Immunologic Allergic/Immunologic: Denies wheezing Physical Exam Const General Appearance: cooperative and other mild conversational dyspnea Orientation / Consciousness: awake and oriented to person HEENT normocephalic Eyes EOMs intact bilaterally Neck full ROM Lymph Lymphatic: no lymphadenopathy noted Chest Breast/Axilla Inspection: other Other Details: mild conversational dyspnea, clear Resp Auscultation: clear to auscultation bilaterally Cardio regular rate and regular rhythm GI Inspection: Negative for abdominal distention Auscultation: normoactive bowel sounds Palpation: soft Groin / Perineum Exam: Negative for edema Extremity full ROM, no clubbing, cyanosis or edema and no pedal edema Peripheral Pulses: Yes dorsalis pedis pulses present Skin Trauma: other multiple tattoos on chest, arms Neuro Sensorium / Orientation: awake, alert and other anxious Motor Exam: strength 5/5 throughout; Negative for asterixis Coordination: other (restless legs) Psych cooperative Lab / Micro Data Result Diagrams: 04/26/21 06:55 04/25/21 06:29 Labs: Laboratory Results - last 24 hr 04/23/21 12:05: WBC 8.8, RBC 4.62, Hgb 12.9 L, Hct 40.0, MCV 86.6, MCH 27.9, MCHC 32.3, RDW Std Deviation 44.6 H, RDW Coeff of Martita 14.0, Plt Count 227, MPV 11.7, Immature Gran % (Auto) 0.300, Neut % (Auto) 72.2 H, Lymph % (Auto) 12.8 L, [place] % (Auto) 14.6 H, Eos % (Auto) 0.0, Baso % (Auto) 0.1, Absolute Neuts (auto) 6.3, Absolute Lymphs (auto) 1.12, Nucleated RBC % 0 04/23/21 12:05: Sodium 132 L, Potassium 4.7, Chloride 98, Carbon Dioxide 20.0 L, Anion Gap 14, BUN 97 H, Creatinine 10.30 H*, Estim Creat Clear Calc 10.02, Est GFR (MDRD) Af Amer 7 L, Est GFR (MDRD) Non-Af 6 L, BUN/Creatinine Ratio 9.4 L, Glucose 106, Calcium 8.9 04/23/21 15:30: Urine Color Yellow, Urine Clarity Clear, Urine pH 6.0, Ur Specific [place] 1.010, Urine Protein 100 H, Urine Glucose (UA) 50 H, Urine Ke tones Negative, Urine Occult Blood 150 H, Urine Nitrite Negative, Urine Bilir ubin Negative, Urine Urobilinogen Normal, Ur Leukocyte Esterase Negative, Urine RBC 0-5 SEEN, Urine WBC 0 SEEN, Ur Squamous Epith Cells 0 SEEN, Urine Bacteria 0 SEEN, Urine Mucus 0 SEEN 04/23/21 15:30: Urine Creatinine 47.30 04/23/21 15:30: Ur Random Sodium 43 04/24/21 05:12: WBC 3.8 L, RBC 3.93 L, Hgb 11.0 L, Hct 34.1 L, MCV 86.8, MCH 2 8.0, MCHC 32.3, RDW Std Deviation 43.4, RDW Coeff of Martita 13.7, Plt Count 217, MPV 11.6, Immature Gran % (Auto) 0.300, Neut % (Auto) 80.6 H, Lymph % (Auto) 11.7 L, [place] % (Auto) 7.4, Eos % (Auto) 0.0, Baso % (Auto) 0.0, Absolute Neuts (auto) 3.0, Absolute Lymphs (auto) 0.44 L, Nucleated RBC % 0, Diff Path Review September04/24/21 05:12: Sodium 134 L, Potassium 5.6 H, Chloride 105, Carbon Dioxide 15.0 L, Anion Gap 14, BUN 100 H, Creatinine 9.58 H*, Estim Creat Clear Calc 10.77, Est GFR (MDRD) Af Amer 8 L, Est GFR (MDRD) Non-Af 6 L, BUN/Creatinine Ratio 10.4, Glucose 152 H, Calcium 8.0 L, Total Bilirubin 0.30, AST 30, ALT 21, Alkaline Phosphatase 49, Total Protein 6.9, Albumin 2.5 L, Globulin 4.4 H, Albumin/Globulin Ratio 0.6 L, TSH 0.62 Micro: Microbiology 04/23/21 12:22 Nasal Secretion SARS-CoV-2 Antigen (Rapid) - Final SARS-CoV-2 (COVID 19) Radiology Impression Chest X-Ray 04/23/21 12:45 IMPRESSION: Multifocal infiltrates with features commonly reported with viral pneumonia. Electronically Signed: Ag Waters MD ([place]) at 13:00 EST , Service support , Renal Ultrasound 04/23/21 14:51 IMPRESSION: Numerous bilateral simple renal cysts compatible with polycystic kidney disease. Mild thickening of the urinary bladder wall, cannot exclude cystitis. If this represents a clinical concern, recommend follow-up with urinalysis. Electronically Signed: Daisy Gaitan MD at 0:37 EST , Service support ,
[2021-04-24] MEDS: 0.9% Saline Lock 10 ML Syringe IV (09:17)
[2021-04-24] MEDS: 0.9% Normal Saline 1,000 ML 100 ML IV ×2 (09:17→16:20)
[2021-04-24] MEDS: dexAMETHasone 4 MG Tablet 6 MG PO (09:18)
[2021-04-24] MEDS: Heparin Injection (Vial) 5,000 UNIT/ML VIAL 5000 UNIT SC ×2 (09:19→21:42)
[2021-04-24] MEDS: Levothyroxine 100 MCG Tablet PO (09:19)
[2021-04-24] MEDS: Allopurinol 100 MG Tablet PO (09:19)
[2021-04-24] MEDS: amLODIPine 2.5 MG Tablet PO (09:19)
[2021-04-24] MEDS: Paroxetine 20 MG Tablet 40 MG PO (09:20)
[2021-04-24] MEDS: Atenolol 50 MG Tablet PO (09:20)
--- NOTE | 2021-04-24 12:25 | PN.HOSP_ITS ---
Subjective Subjective Patient has history of PCKD diagnosed at the age of 22. Patient is also on kidney transplant placed in ICU. Has never required dialysis. Currently admitted with 1 week history of not feeling well and was found hypoxic and BEST in ED. Objective Data Objective Data Vital Signs: Vital Signs Temp Pulse Resp BP Pulse Ox 98.5 F 73 16 117/74 95 04/24/21 09:05 04/24/21 09:05 04/24/21 09:05 04/24/21 09:05 04/24/21 09:05 Oxygen Delivery Method Room Air Weight: 270 lb 5 oz Body Mass Index (BMI) 35.6 Intake & Output: Intake and Output for Last 24 Hours 04/22/21 04/23/21 04/24/21 23:59 23:59 23:59 Intake Total 3000 / 3800 800 / 800 Output Total 925 / 925 Balance 3000 / 3200 -125 / -125 Lab / Micro Data Result Diagrams: 04/24/21 05:12 04/24/21 05:12 Labs: Laboratory Results - last 24 hr 04/23/21 12:05: WBC 8.8, RBC 4.62, Hgb 12.9 L, Hct 40.0, MCV 86.6, MCH 27.9, MCHC 32.3, RDW Std Deviation 44.6 H, RDW Coeff of Martita 14.0, Plt Count 227, MPV 11.7, Immature Gran % (Auto) 0.300, Neut % (Auto) 72.2 H, Lymph % (Auto) 12.8 L, [place] % (Auto) 14.6 H, Eos % (Auto) 0.0, Baso % (Auto) 0.1, Absolute Neuts (auto) 6.3, Absolute Lymphs (auto) 1.12, Nucleated RBC % 0 04/23/21 12:05: Sodium 132 L, Potassium 4.7, Chloride 98, Carbon Dioxide 20.0 L, Anion Gap 14, BUN 97 H, Creatinine 10.30 H*, Estim Creat Clear Calc 10.02, Est GFR (MDRD) Af Amer 7 L, Est GFR (MDRD) Non-Af 6 L, BUN/Creatinine Ratio 9.4 L, Glucose 106, Calcium 8.9 04/23/21 15:30: Urine Color Yellow, Urine Clarity Clear, Urine pH 6.0, Ur Specific [place] 1.010, Urine Protein 100 H, Urine Glucose (UA) 50 H, Urine Ketones Negative, Urine Occult Blood 150 H, Urine Nitrite Negative, Urine Bilirubin Negative, Urine Urobilinogen Normal, Ur Leukocyte Esterase Negative, Urine RBC 0-5 SEEN, Urine WBC 0 SEEN, Ur Squamous Epith Cells 0 SEEN, Urine Bacteria 0 SEEN, Urine Mucus 0 SEEN 04/23/21 15:30: Urine Creatinine 47.30 04/23/21 15:30: Ur Random Sodium 43 04/24/21 05:12: WBC 3.8 L, RBC 3.93 L, Hgb 11.0 L, Hct 34.1 L, MCV 86.8, MCH 28.0, MCHC 32.3, RDW Std Deviation 43.4, RDW Coeff of Martita 13.7, Plt Count 217, MPV 11.6, Immature Gran % (Auto) 0.300, Neut % (Auto) 80.6 H, Lymph % (Auto) 11.7 L, [place] % (Auto) 7.4, Eos % (Auto) 0.0, Baso % (Auto) 0.0, Absolute Neuts (auto) 3.0, Absolute Lymphs (auto) 0.44 L, Nucleated RBC % 0, Diff Path Review September04/24/21 05:12: Sodium 134 L, Potassium 5.6 H, Chloride 105, Carbon Dioxide 15.0 L, Anion Gap 14, BUN 100 H, Creatinine 9.58 H*, Estim Creat Clear Calc 10.77, Est GFR (MDRD) Af Amer 8 L, Est GFR (MDRD) Non-Af 6 L, BUN/Creatinine Ratio 10.4, Glucose 152 H, Calcium 8.0 L, Total Bilirubin 0.30, AST 30, ALT 21, Alkaline Phosphatase 49, Total Protein 6.9, Albumin 2.5 L, Globulin 4.4 H, Albumin/Globulin Ratio 0.6 L, TSH 0.62 Micro: Microbiology 04/23/21 12:22 Nasal Secretion SARS-CoV-2 Antigen (Rapid) - Final SARS-CoV-2 (COVID 19) Radiography Diagnostic Testing: Radiology Impression Chest X-Ray 04/23/21 12:45 IMPRESSION: Multifocal infiltrates with features commonly reported with viral pneumonia. Electronically Signed: Ag Waters MD ([place]) at 13:00 EST , Service support , Renal Ultrasound 04/23/21 14:51 IMPRESSION: Numerous bilateral simple renal cysts compatible with polycystic kidney disease. Mild thickening of the urinary bladder wall, cannot exclude cystitis. If this represents a clinical concern, recommend follow-up with urinalysis. Electronically Signed: Daisy Gaitan MD at 0:37 EST , Service support , Physical Exam Narrative General: Alert, Oriented x3, Cooperative, morbid obese BMI 35.7 kg/m?. HEENT: Atraumatic, PERRLA, EOMI, Normocephalic Oral: No Gingival or Mucosal Lesions/ Ulcerations Neck: Supple, No JVD, Negative Carotid Bruits Lungs: Air entry diminished in bilateral lung bases. No tachypnea. No crepitation/rhonchi Cardiovascular: Regular rate, Regular Rhythm, Normal S1, Normal S2, No murmurs Abdomen: Bowel Sounds Present, Soft, Non Tender, Non-Distended : No significant decrease in urine output as per patient. Urine output 925 mL. No renal angle tenderness. No suprapubic tenderness. Extremities: No edema, Capillary Refill Less than 3 Seconds Skin: No rashes, No breakdown Musculoskeletal: No Tenderness to Palpation of Joints or Extremities Neurological: Cranial nerves II-XII grossly intact, DTR 2+/4 and Symmetrical, Neuro grossly intact Psych/Mental Status: Normal Affect, Appropriate. Assessment & Plan Assessment/Plan (1) BEST (acute kidney injury): (2) COVID-19: PLAN: 1. Acute kidney injury on chronic kidney disease probably stage IV: Patient last evaluated creatinine was 3.7 2020. Normally follows with supervisor stripping in [facility]. Discussed with the supervisor stripping Dr. Varghese. Kidney ultrasound shows numerous bilateral simple renal cyst compatible with PCKD. Mild thickening of urinary bladder wall. UA shows proteinuria, glucose 50 elevated. Urine random sodium 43, creatinine 47.3. pH 6.0. SG 1.010. Patient denies burning micturition, increased frequency urgency or recent decrease in urine output. Try to get records from [facility]. 2. COVID-19: Currently pulse ox 95% on room air. Continue dexamethasone 6 mg. Not candidate for remdesivir because of BEST and is not hypoxic. Onset of symptoms on 04/16. Need quarantine through 327. Unvaccinated. 3. Morbid obesity BMI about 35.9 Complicates overall care and recovery 4. VTE prophylaxis with subcu heparin Clinical Impression(s) from Imaging Studies Chest X-Ray 04/23/21 12:45 IMPRESSION: Multifocal infiltrates with features commonly reported with viral pneumonia. Renal Ultrasound 04/23/21 14:51 IMPRESSION: Numerous bilateral simple renal cysts compatible with polycystic kidney disease. Mild thickening of the urinary bladder wall, cannot exclude cystitis. If this represents a clinical concern, recommend follow-up with urinalysis. Electronically Signed: Daisy Gaitan MD at 0:37 EST , Service support , Charges/Coding Visit Charges Inpatient E&M: 97320 Subs Hosp L2
[2021-04-24 13:10] VITALS: O2SAT 98
--- NOTE | 2021-04-24 13:40 | CASEMGMT ---
LETY ROBLERO Assessment: Face to Face with pt for initial transition planning/care coordination assessment. LETY ROBLERO introduced self and role at [facility], pt voices understanding and consents to assessment. Pt is A/O x4 and answers all questions appropriately at this time. Pt sitting up in bed on RA in no distress. Care providers, pharmacy, and demographics verified/updated. Admitting Dx: COVID PCP:Suzanne Edwards [employer]GR[employer] Specialists:Pt sees a nephro at [facility], unsure of the name. Pt states he is on the transplant list for a kidney at [facility]. Preferred Pharmacy: [facility] Insurance: [facility] Prescription Benefit: yes LW/HPOA: Pt denies having a LW/DPOA and denies need for info regarding AD. LNOK: Sharyn Ricks, mother Living Arrangements: Pt lives with dtr and grandson in a ground level apt. The entry is through the basement and up 15 steps to the main level. There is a rail. Pt states he is I in ADL's and denies concerns at home. Transportation: Pt drives self and denies concerns with transportation. DME/HHC/SNF: Pt has a walking stick and cane at home. Denies previous hx of HHC or SNF stays. Pt states he was first tested for COVID at [facility]. He states he had been quarantining from his dtr and grandson since he was sick. He is able to use separate bedrooms and bathrooms. Pt has family who can provide him with groceries and supplies. Pt states no concerns with going home at time of dc. Pt states no further concerns/needs. CM to follow. Advised pt to ask CM if any further question/concerns/needs arise, voices understanding. Pt Goal: Home Plan: Home, LETY ROBLERO to follow for need of dialysis.
[2021-04-24 15:17] VITALS: BP 113/78; PULSE 73; RESP 16; TEMP 36.9; O2SAT 97
[2021-04-24] MEDS: Sodium Bicarbonate 650 MG Tablet PO (16:20)
[2021-04-24 21:37] VITALS: BP 130/81; PULSE 73; RESP 18; TEMP 36.6; O2SAT 97
[2021-04-24] MEDS: Pravastatin 80 MG Tablet PO (21:41)
--- NOTE | 2021-04-24 22:45 | PCS.PANDOC ---
PANDEMIC DOCUMENTATION INITIATED: Date: 04/24/2021 Time: 190
[2021-04-25] VITALS (10 sets, daily range): BP systolic 122–135; BP diastolic 75–85; PULSE 64–79; RESP 18–30; TEMP 36.6–36.8; O2SAT 88–98
[2021-04-25] MEDS: 0.9% Normal Saline 1,000 ML 100 ML IV (02:26)
[2021-04-25 07:09] LABS: Absolute Lymphocyte Count 0.54 X10^3/uL (0.83-4.51); Absolute Neutrophil Count 6.3 X10^3/uL (2.0-7.7); Eosinophil# 0.01 X10^3/uL; Eosinophils% 0.1 % (0-5); Hematocrit 33.9 % (40-54); Lymphocyte # 0.54 X10^3/ul (0.83-4.51); Lymphocyte % 7.2 % (19-41); Mean Corp Hgb Conc 32.4 g/dL (32-36); Mean Corpuscular Hgb 27.9 pg (27.0-32.0); Monocyte# 0.71 X10^3/uL; Monocyte% 9.4 % (0-10); NRBC Flagged by Analyzer 0 % (0-5); Neutrophil # 6.25 X10^3/uL (2.7-7.7); Neutrophil % 82.8 % (47-70); POSITIVE DIFFERENTIAL YES; Platelet Count 237 K/mm3 (150-450); RBC Distribution Width CV 13.9 % (11.6-14.6); RBC Distribution Width SD 43.7 fl (35.1-43.9); Red Blood Count 3.94 M/mm3 (4.6-6.2); White Blood Count 7.6 K/mm3 (4.4-11.0)
[2021-04-25 07:13] LABS: Differential Indicated SCAN CRITERIA MET
[2021-04-25 07:43] LABS: Albumin, Serum 2.4 g/dL (3.2-5.0); BUN 111 mg/dL (7-18); BUN/Creat Ratio 12.5 RATIO (10-20); Calcium,Total 8.7 mg/dL (8.5-10.1); Chloride 109 mmol/L (98-107); EST Glomerular Filtration Rate 7 mL/min (>60); Est Glom Filt Rate - Afr Amer 8 mL/min (>60); Glucose 131 mg/dL (74-106); Phosphorus 7.9 mg/dL (2.5-4.9); Potassium 5.5 mmol/L (3.5-5.1); Sodium Level 134 mmol/L (136-145)
[2021-04-25] MEDS: amLODIPine 2.5 MG Tablet PO (09:37)
[2021-04-25] MEDS: Sodium Bicarbonate 650 MG Tablet PO (09:37)
[2021-04-25] MEDS: Levothyroxine 100 MCG Tablet PO (09:37)
[2021-04-25] MEDS: dexAMETHasone 4 MG Tablet 6 MG PO (09:37)
[2021-04-25] MEDS: Atenolol 50 MG Tablet PO (09:38)
[2021-04-25] MEDS: Allopurinol 100 MG Tablet PO (09:38)
[2021-04-25] MEDS: Paroxetine 20 MG Tablet 40 MG PO (09:38)
[2021-04-25] MEDS: Heparin Injection (Vial) 5,000 UNIT/ML VIAL 5000 UNIT SC ×2 (09:39→22:16)
--- NOTE | 2021-04-25 09:41 | PCM.PN.REN ---
Subjective Subjective no nausea, vomiiting. Still with dry cough, dyspnea with cough. Creatinine slightly improved. Objective Data Objective Data Vital Signs: Vital Signs Temp Pulse Resp BP Pulse Ox 97.9 F 74 20 H 129/85 H 93 04/25/21 09:33 04/25/21 09:33 04/25/21 09:33 04/25/21 09:33 04/25/21 09:33 Oxygen Delivery Method Room Air Weight: 122.612 kg Body Mass Index (BMI) 35.6 Intake & Output: Intake and Output for Last 24 Hours 04/23/21 04/24/21 04/25/21 23:59 23:59 23:59 Intake Total 3000 / 3800 1505 / 1505 1000 / 1000 Output Total 1175 / 1175 Balance 3000 / 3200 330 / 330 1000 / 1000 Lab / Micro Data Result Diagrams: 04/26/21 06:55 04/26/21 06:55 Labs: Laboratory Results - last 24 hr 04/25/21 06:29: WBC 7.6, RBC 3.94 L, Hgb 11.0 L, Hct 33.9 L, MCV 86.0, MCH 27.9, MCHC 32.4, RDW Std Deviation 43.7, RDW Coeff of Martita 13.9, Plt Count 237, MPV 11.0, Immature Gran % (Auto) 0.500, Neut % (Auto) 82.8 H, Lymph % (Auto) 7.2 L, [place] % (Auto) 9.4, Eos % (Auto) 0.1, Baso % (Auto) 0.0, Absolute Neuts (auto) 6.3, Absolute Lymphs (auto) 0.54 L, Nucleated RBC % 0 04/25/21 06:29: Sodium 134 L, Potassium 5.5 H, Chloride 109 H, Carbon Dioxide 13.0 L, BUN 111 H*, Creatinine 8.90 H*, Estim Creat Clear Calc 11.60, Est GFR (MDRD) Af Amer 8 L, Est GFR (MDRD) Non-Af 7 L, BUN/Creatinine Ratio 12.5, Glucose 131 H, Calcium 8.7, Phosphorus 7.9 H, Albumin 2.4 L Micro: Microbiology 04/23/21 12:22 Nasal Secretion SARS-CoV-2 Antigen (Rapid) - Final SARS-CoV-2 (COVID 19) Physical Exam Const alert and oriented x3 Resp clear to auscultation bilaterally Cardio regular rate GI non-tender and non-distended GI Narrative: obese Palpation: soft Extremity no clubbing, cyanosis or edema Skin Skin Narrative: multiple tattoos Psych cooperative Mood & Affect: anxious Assessment & Plan Assessment/Plan (1) BEST (acute kidney injury): PLAN: acute on CKD Stage 4 due to COVID infection. Continue iv fluids. Creatinine slightly improved to 8.9. Baseline creatinine 5.1 in December 2020. Followed by [facility] nephrology dept. get 24h urine CRCL. Pt does not have dialysis access. No urgent need to initiate dialysis at this time. Continue to monitor renal fxn. (2) CKD (chronic kidney disease), stage IV: PLAN: due to PCKD with large kidneys bilat RK 20cm, LK 21cm on US. Followed by [facility] nephrology dept. Evaluated for kidney tx (3) History of polycystic kidney disease: (4) COVID-19: PLAN: unvaccinated with continued symptoms on steroids. (5) Hyperkalemia: PLAN: due to renal failure follow renal diet (6) Metabolic acidosis: PLAN: due to renal failure, start iv bicarb drip (7) Hypertension: PLAN: stable
[2021-04-25 09:54] LABS: Pathologist Review Reviewed
--- NOTE | 2021-04-25 13:05 | PN.HOSP_ITS ---
Subjective Subjective Patient reports cough with phlegm stuck in the chest and throat. Advised to continue incentive spirometry and Pep. On Mucinex D. No fever in the last 36 hours Objective Data Objective Data Vital Signs: Vital Signs Temp Pulse Resp BP Pulse Ox 97.9 F 74 20 H 129/85 H 93 04/25/21 09:33 04/25/21 09:33 04/25/21 09:33 04/25/21 09:33 04/25/21 09:33 Oxygen Delivery Method Room Air Weight: 270 lb 5.011 oz Body Mass Index (BMI) 35.6 Intake & Output: Intake and Output for Last 24 Hours 04/23/21 04/24/21 04/25/21 23:59 23:59 23:59 Intake Total 3000 / 3800 1505 / 1505 1000 / 1000 Output Total 1175 / 1175 Balance 3000 / 3200 330 / 330 1000 / 1000 Lab / Micro Data Result Diagrams: 04/25/21 06:29 04/25/21 06:29 Labs: Laboratory Results - last 24 hr 04/24/21 05:12: Diff Path Review Reviewed 04/25/21 06:29: WBC 7.6, RBC 3.94 L, Hgb 11.0 L, Hct 33.9 L, MCV 86.0, MCH 27.9, MCHC 32.4, RDW Std Deviation 43.7, RDW Coeff of Martita 13.9, Plt Count 237, MPV 11.0, Immature Gran % (Auto) 0.500, Neut % (Auto) 82.8 H, Lymph % (Auto) 7.2 L, [place] % (Auto) 9.4, Eos % (Auto) 0.1, Baso % (Auto) 0.0, Absolute Neuts (auto) 6.3, Absolute Lymphs (auto) 0.54 L, Nucleated RBC % 0 04/25/21 06:29: Sodium 134 L, Potassium 5.5 H, Chloride 109 H, Carbon Dioxide 13.0 L, BUN 111 H*, Creatinine 8.90 H*, Estim Creat Clear Calc 11.60, Est GFR (MDRD) Af Amer 8 L, Est GFR (MDRD) Non-Af 7 L, BUN/Creatinine Ratio 12.5, Glucose 131 H, Calcium 8.7, Phosphorus 7.9 H, Albumin 2.4 L Micro: Microbiology 04/23/21 12:22 Nasal Secretion SARS-CoV-2 Antigen (Rapid) - Final SARS-CoV-2 (COVID 19) Physical Exam Narrative General: Alert, Oriented x3, Cooperative, morbid obese BMI 35.7 kg/m?. HEENT: Atraumatic, PERRLA, EOMI, Normocephalic Oral: No Gingival or Mucosal Lesions/ Ulcerations Neck: Supple, No JVD, Negative Carotid Bruits Lungs: Air entry diminished in bilateral lung bases. No crepitation/rhonchi Cardiovascular: Regular rate, Regular Rhythm, Normal S1, Normal S2, No murmurs Abdomen: Bowel Sounds Present, Soft, Non Tender, Non-Distended : Dark-colored urine, 250 mill per No renal angle tenderness. No suprapubic tenderness. Extremities: No edema, Capillary Refill Less than 3 Seconds Skin: No rashes, No breakdown Musculoskeletal: No Tenderness to Palpation of Joints or Extremities Neurological: Cranial nerves II-XII grossly intact, DTR 2+/4 and Symmetrical, Neuro grossly intact Psych/Mental Status: Normal Affect, Appropriate. Assessment & Plan Assessment/Plan (1) BEST (acute kidney injury): (2) COVID-19: PLAN: 1. Acute kidney injury on chronic kidney disease probably stage IV: Patient last evaluated creatinine was 3.7 2020. Normally follows with testing and regulating technician in [facility]. Discussed with the testing and regulating technician Dr. Varghese. Kidney ultrasound shows numerous bilateral simple renal cyst compatible with PCKD. Mild thickening of urinary bladder wall. UA shows proteinuria, glucose 50 elevated. Urine random sodium 43, creatinine 47.3. pH 6.0. SG 1.010. Patient denies burning micturition, increased frequency urgency or recent decrease in urine output. Try to get records from [facility]. 02/23: Labs reviewed. Not significant improvement in creatinine. K5.5 BUN high 111 but patient not having signs and symptoms of uremia. Discussed with testing and regulating technician. Dialysis not urgent. 2. COVID-19: Currently pulse ox 95% on room air. Continue dexamethasone 6 mg. Not candidate for remdesivir because of BEST and is not hypoxic. Onset of symptoms on 04/16. Need quarantine through 327. Unvaccinated. 04/25: Mucinex D. Advised aggressive incentive spirometry and Pep. 3. Morbid obesity BMI about 35.9 Complicates overall care and recovery 4. VTE prophylaxis with subcu heparin. Hemoglobin 11 g. Platelet count 237 Clinical Impression(s) from Imaging Studies Chest X-Ray 04/23/21 12:45 IMPRESSION: Multifocal infiltrates with features commonly reported with viral pneumonia. Renal Ultrasound 04/23/21 14:51 IMPRESSION: Numerous bilateral simple renal cysts compatible with polycystic kidney disease. Mild thickening of the urinary bladder wall, cannot exclude cystitis. If this represents a clinical concern, recommend follow-up with urinalysis. Electronically Signed: Daisy Gaitan MD at 0:37 EST , Service support ,
[2021-04-25] MEDS: guaiFENesin/D-Methorphan TAB.SR.12H 1 TABLET PO ×2 (15:26→22:16)
[2021-04-25] MEDS: Acetaminophen 325 MG Tablet 650 MG PO (16:53)
[2021-04-25] MEDS: Pravastatin 80 MG Tablet PO (22:16)
[2021-04-26] VITALS (21 sets, daily range): BP systolic 123–153; BP diastolic 79–91; PULSE 64–74; RESP 20–28; TEMP 36.7–37.3; O2SAT 86–100
[2021-04-26] MEDS: Paroxetine 20 MG Tablet 40 MG PO (05:52)
[2021-04-26 08:04] LABS: Absolute Lymphocyte Count 0.46 X10^3/uL (0.83-4.51); Absolute Neutrophil Count 9.8 X10^3/uL (2.0-7.7); Hematocrit 33.7 % (40-54); Hemoglobin 11.4 g/dL (13.0-16.5); Lymphocyte # 0.46 X10^3/ul (0.83-4.51); Lymphocyte % 4.1 % (19-41); Mean Corp Hgb Conc 33.8 g/dL (32-36); Mean Corpuscular Hgb 27.8 pg (27.0-32.0); Mean Corpuscular Volume 82.2 fL (80-94); Mean Platelet Vol. 11.1 fl (6.2-12.0); Monocyte# 0.97 X10^3/uL; Monocyte% 8.6 % (0-10); NRBC Flagged by Analyzer 0 % (0-5); Neutrophil # 9.78 X10^3/uL (2.7-7.7); Neutrophil % 86.7 % (47-70); POSITIVE DIFFERENTIAL YES; Platelet Count 253 K/mm3 (150-450); RBC Distribution Width CV 13.7 % (11.6-14.6); RBC Distribution Width SD 41.3 fl (35.1-43.9); White Blood Count 11.3 K/mm3 (4.4-11.0)
[2021-04-26 08:05] LABS: Differential Indicated SCAN CRITERIA MET
[2021-04-26] MEDS: dexAMETHasone 4 MG Tablet 6 MG PO (08:24)
[2021-04-26] MEDS: guaiFENesin/D-Methorphan TAB.SR.12H 1 TABLET PO ×2 (08:24→20:52)
[2021-04-26] MEDS: Allopurinol 100 MG Tablet PO (08:25)
[2021-04-26] MEDS: amLODIPine 2.5 MG Tablet PO (08:26)
[2021-04-26] MEDS: Atenolol 50 MG Tablet PO (08:26)
[2021-04-26] MEDS: Heparin Injection (Vial) 5,000 UNIT/ML VIAL 5000 UNIT SC ×2 (08:29→20:52)
--- NOTE | 2021-04-26 08:40 | NURSING ---
This nurse in room while pt eating cherrios. Sp02 dropping on 12L NC while eating. This nurse increased to 15L while eating. While pt recovering, this nurse educated on using I.S, peep and getting OOB. I feel like I'm going to pass out when I get out of bed. This nurse helped lay on his left side for now. Pt was told he would get tylenol and after recovered from eating, later this morning, nurse will get him in chair.
[2021-04-26] MEDS: Acetaminophen 325 MG Tablet 650 MG PO ×2 (08:43→18:33)
[2021-04-26 09:19] LABS: Albumin, Serum 2.5 g/dL (3.2-5.0); BUN 111 mg/dL (7-18); BUN/Creat Ratio 14.3 RATIO (10-20); Calcium,Total 8.7 mg/dL (8.5-10.1); Chloride 103 mmol/L (98-107); Creatinine, Serum 7.75 mg/dL (0.70-1.30); EST Glomerular Filtration Rate 8 mL/min (>60); Est Glom Filt Rate - Afr Amer 10 mL/min (>60); Estimated Creatinine Clearance 13.32 ml/min; Glucose 108 mg/dL (74-106); Phosphorus 6.6 mg/dL (2.5-4.9); Potassium 4.4 mmol/L (3.5-5.1); Sodium Level 136 mmol/L (136-145)
--- NOTE | 2021-04-26 10:06 | NURSING ---
Pt is now on Airvo. Pt is also now sitting up in chair. Pt states he feels so much better sitting in chair. Will continue to monitor.
[2021-04-26] MEDS: Levothyroxine 100 MCG Tablet PO (10:07)
--- NOTE | 2021-04-26 13:15 | PCM.PN.REN ---
Subjective Subjective on airvo, still with LAWLER. No edema, denies nausea, vomiting Objective Data Objective Data Vital Signs: Vital Signs Temp Pulse Resp BP Pulse Ox 98.6 F 73 20 H 144/87 H 97 04/26/21 10:05 04/26/21 10:05 04/26/21 10:05 04/26/21 10:05 04/26/21 10:05 Oxygen Flow Rate (L/min) 15 Oxygen Delivery Method Airvo Weight: 122.612 kg Body Mass Index (BMI) 35.6 Intake & Output: Intake and Output for Last 24 Hours 04/24/21 04/25/21 04/26/21 23:59 23:59 23:59 Intake Total 1505 / 1505 3831.67 / 3831.67 1031.67 / 1031.67 Output Total 1175 / 1175 1850 / 1850 1100 / 1100 Balance 330 / 330 1981.67 / 1981.67 -68.33 / -68.33 Lab / Micro Data Result Diagrams: 04/26/21 06:55 04/26/21 06:55 Labs: Laboratory Results - last 24 hr 04/26/21 06:55: WBC 11.3 H, RBC 4.10 L, Hgb 11.4 L, Hct 33.7 L, MCV 82.2, MCH 27.8, MCHC 33.8, RDW Std Deviation 41.3, RDW Coeff of Martita 13.7, Plt Count 253, MPV 11.1, Immature Gran % (Auto) 0.600, Neut % (Auto) 86.7 H, Lymph % (Auto) 4.1 L, [place] % (Auto) 8.6, Eos % (Auto) 0.0, Baso % (Auto) 0.0, Absolute Neuts (auto) 9.8 H, Absolute Lymphs (auto) 0.46 L, Nucleated RBC % 0 04/26/21 06:55: Sodium 136, Potassium 4.4, Chloride 103, Carbon Dioxide 17.0 L, BUN 111 H*, Creatinine 7.75 H*, Estim Creat Clear Calc 13.32, Est GFR (MDRD) Af Amer 10 L, Est GFR (MDRD) Non-Af 8 L, BUN/Creatinine Ratio 14.3, Glucose 108 H, Calcium 8.7, Phosphorus 6.6 H, Albumin 2.5 L Micro: Microbiology 04/23/21 12:22 Nasal Secretion SARS-CoV-2 Antigen (Rapid) - Final SARS-CoV-2 (COVID 19) Physical Exam Const alert and oriented x3 Resp clear to auscultation bilaterally Cardio regular rate GI GI Narrative: obese Palpation: soft Extremity no clubbing, cyanosis or edema Neuro Sensorium / Orientation: awake and alert Motor Exam: Negative for asterixis Assessment & Plan Assessment/Plan (1) BEST (acute kidney injury): PLAN: acute on CKD Stage 4 due to COVID infection. Continue iv fluids. Creatinine improved to 7.75. Baseline creatinine 5.1 in December 2020. Followed by [facility] nephrology dept. Await 24h urine CRCL. No urgent need to initiate dialysis at this time. Continue to monitor renal fxn. (2) CKD (chronic kidney disease), stage IV: PLAN: due to PCKD with large kidneys bilat RK 20cm, LK 21cm on US. Followed by [facility] nephrology dept. Evaluated for kidney tx (3) History of polycystic kidney disease: (4) COVID-19: PLAN: unvaccinated with continued symptoms on steroids. (5) Hyperkalemia: PLAN: due to renal failure follow renal diet, K improved with bicarb drip (6) Metabolic acidosis: PLAN: due to renal failure, continue iv bicarb drip (7) Hypertension: PLAN: stable
--- NOTE | 2021-04-26 14:47 | PCM.PN.HOSP ---
Subjective Subjective Patient is started on air Vo in the morning because of worsening respiratory status. Patient on sitting position, feels better on interval. Objective Data Objective Data Vital Signs: Vital Signs Temp Pulse Resp BP Pulse Ox 98.6 F 65 26 H 144/87 H 95 04/26/21 10:05 04/26/21 14:26 04/26/21 14:26 04/26/21 10:05 04/26/21 14:26 Oxygen Flow Rate (L/min) 15 Oxygen Delivery Method Airvo Weight: 270 lb 5.011 oz Body Mass Index (BMI) 35.6 Intake & Output: Intake and Output for Last 24 Hours 04/24/21 04/25/21 04/26/21 23:59 23:59 23:59 Intake Total 1505 / 1505 3831.67 / 3831.67 1031.67 / 1031.67 Output Total 1175 / 1175 1850 / 1850 1100 / 1100 Balance 330 / 330 1981.67 / 1981.67 -68.33 / -68.33 Lab / Micro Data Result Diagrams: 04/26/21 06:55 04/26/21 06:55 Labs: Laboratory Results - last 24 hr 04/26/21 06:55: WBC 11.3 H, RBC 4.10 L, Hgb 11.4 L, Hct 33.7 L, MCV 82.2, MCH 27.8, MCHC 33.8, RDW Std Deviation 41.3, RDW Coeff of Martita 13.7, Plt Count 253, MPV 11.1, Immature Gran % (Auto) 0.600, Neut % (Auto) 86.7 H, Lymph % (Auto) 4.1 L, [place] % (Auto) 8.6, Eos % (Auto) 0.0, Baso % (Auto) 0.0, Absolute Neuts (auto) 9.8 H, Absolute Lymphs (auto) 0.46 L, Nucleated RBC % 0 04/26/21 06:55: Sodium 136, Potassium 4.4, Chloride 103, Carbon Dioxide 17.0 L, BUN 111 H*, Creatinine 7.75 H*, Estim Creat Clear Calc 13.32, Est GFR (MDRD) Af Amer 10 L, Est GFR (MDRD) Non-Af 8 L, BUN/Creatinine Ratio 14.3, Glucose 108 H, Calcium 8.7, Phosphorus 6.6 H, Albumin 2.5 L Micro: Microbiology 04/23/21 12:22 Nasal Secretion SARS-CoV-2 Antigen (Rapid) - Final SARS-CoV-2 (COVID 19) Physical Exam Narrative General: Alert, Oriented x3, Cooperative, morbid obese BMI 35.7 kg/m?. HEENT: Atraumatic, PERRLA, EOMI, Normocephalic Oral: No Gingival or Mucosal Lesions/ Ulcerations Neck: Supple, No JVD, Negative Carotid Bruits Lungs: Air entry diminished in bilateral lung bases. Bilateral fine expiratory rhonchi. Severe hypoxia Cardiovascular: Regular rate, Regular Rhythm, Normal S1, Normal S2, No murmurs Abdomen: Bowel Sounds Present, Soft, Non Tender, Non-Distended : Small amount of urine. No renal angle tenderness. No suprapubic tenderness. Extremities: No edema, Capillary Refill Less than 3 Seconds Skin: No rashes, No breakdown Musculoskeletal: No Tenderness to Palpation of Joints or Extremities Neurological: Cranial nerves II-XII grossly intact, DTR 2+/4 and Symmetrical, Neuro grossly intact Psych/Mental Status: Normal Affect, Appropriate. Assessment & Plan Assessment/Plan (1) BEST (acute kidney injury): (2) COVID-19: PLAN: 1. Acute kidney injury on chronic kidney disease probably stage IV: Patient last evaluated creatinine was 3.7 2020. Normally follows with male impersonator in [facility]. Discussed with the male impersonator Dr. Varghese. Kidney ultrasound shows numerous bilateral simple renal cyst compatible with PCKD. Mild thickening of urinary bladder wall. UA shows proteinuria, glucose 50 elevated. Urine random sodium 43, creatinine 47.3. pH 6.0. SG 1.010. Patient denies burning micturition, increased frequency urgency or recent decrease in urine output. Try to get records from [facility]. 02/23: Labs reviewed. Not significant improvement in creatinine. K5.5 BUN high 111 but patient not having signs and symptoms of uremia. Discussed with male impersonator. Dialysis not urgent. 02/24: Seen by male impersonator. Slight decrease in creatinine. Continue to monitor kidney function. Urine output 1100 mL. On bicarb drip. 24-hour creatinine clearance and protein ordered by male impersonator. 2. COVID-19: Currently pulse ox 95% on room air. Continue dexamethasone 6 mg. Not candidate for remdesivir because of BEST and is not hypoxic. Onset of symptoms on 04/16. Need quarantine through 327. Unvaccinated. 04/25: Mucinex D. Advised aggressive incentive spirometry and Pep. 04/25: Worsening of respiratory status. Started on AIRVO. 3. Morbid obesity BMI about 35.9 Complicates overall care and recovery 4. VTE prophylaxis with subcu heparin. Hemoglobin 11 g. Platelet count 237 Clinical Impression(s) from Imaging Studies Chest X-Ray 04/23/21 12:45 IMPRESSION: Multifocal infiltrates with features commonly reported with viral pneumonia. Renal Ultrasound 04/23/21 14:51 IMPRESSION: Numerous bilateral simple renal cysts compatible with polycystic kidney disease. Mild thickening of the urinary bladder wall, cannot exclude cystitis. If this represents a clinical concern, recommend follow-up with urinalysis. Charges/Coding Visit Charges Inpatient E&M: 87852 Subs Hosp L2
[2021-04-26 20:27] LABS: Creat.Clear Total Volume 4050 mL; Creatinine Clearance 16 ml/min (100-200); Creatinine Serum Creat 7.8 mg/dL (0.8-1.3); Creatinine Urine 43.2 mg/dL (NO RANGE EST.); EST Glomerular Filtration Rate 8 mL/min (>60); Est Glom Filt Rate - Afr Amer 10 mL/min (>60)
[2021-04-26 20:28] LABS: 24HR. UA Prot. Total Volume 4050 mL; Urine Protein (24 Hour) 159.6 mg/dL (<11.9)
[2021-04-26] MEDS: Pravastatin 80 MG Tablet PO (20:51)
[2021-04-27] VITALS (11 sets, daily range): BP systolic 125–151; BP diastolic 71–90; PULSE 63–71; RESP 18–32; TEMP 36.8–37.2; O2SAT 88–98
[2021-04-27 06:55] LABS: Absolute Lymphocyte Count 0.45 X10^3/uL (0.83-4.51); Absolute Neutrophil Count 11.9 X10^3/uL (2.0-7.7); Basophil# 0.01 X10^3/uL; Basophil% 0.1 % (0-1); Hematocrit 32.2 % (40-54); Hemoglobin 11.1 g/dL (13.0-16.5); Lymphocyte # 0.45 X10^3/ul (0.83-4.51); Lymphocyte % 3.4 % (19-41); Mean Corp Hgb Conc 34.5 g/dL (32-36); Mean Corpuscular Hgb 28.2 pg (27.0-32.0); Mean Corpuscular Volume 81.9 fL (80-94); Mean Platelet Vol. 10.9 fl (6.2-12.0); Monocyte# 0.78 X10^3/uL; Monocyte% 5.9 % (0-10); NRBC Flagged by Analyzer 0 % (0-5); Neutrophil # 11.88 X10^3/uL (2.7-7.7); Neutrophil % 89.9 % (47-70); POSITIVE DIFFERENTIAL YES; Platelet Count 248 K/mm3 (150-450); RBC Distribution Width CV 13.6 % (11.6-14.6); Red Blood Count 3.93 M/mm3 (4.6-6.2); White Blood Count 13.2 K/mm3 (4.4-11.0)
[2021-04-27 07:01] LABS: Differential Indicated SCAN CRITERIA MET
[2021-04-27 07:19] LABS: ALB/GLOB Ratio 0.5 RATIO (0.9-2.4); AST(SGOT) 48 U/L (15-37); Alanine Aminotransfer ALT/SGPT 24 U/L (16-61); Albumin, Serum 2.3 g/dL (3.2-5.0); Alkaline Phosphatase 53 U/L (45-117); Anion Gap 14 (5-15); BUN 114 mg/dL (7-18); BUN/Creat Ratio 15.9 RATIO (10-20); Calcium,Total 8.4 mg/dL (8.5-10.1); Chloride 99 mmol/L (98-107); Creatinine, Serum 7.17 mg/dL (0.70-1.30); EST Glomerular Filtration Rate 9 mL/min (>60); Est Glom Filt Rate - Afr Amer 11 mL/min (>60); Estimated Creatinine Clearance 14.39 ml/min; Globulin 4.4 g/dL (2.2-4.2); Glucose 126 mg/dL (74-106); Potassium 4.5 mmol/L (3.5-5.1); Protein, Total 6.7 g/dL (6.4-8.2); Sodium Level 136 mmol/L (136-145)
[2021-04-27] MEDS: dexAMETHasone 4 MG Tablet 6 MG PO (08:23)
[2021-04-27] MEDS: Paroxetine 20 MG Tablet 40 MG PO (08:24)
[2021-04-27] MEDS: Allopurinol 100 MG Tablet PO (08:24)
[2021-04-27] MEDS: guaiFENesin/D-Methorphan TAB.SR.12H 1 TABLET PO ×2 (08:24→22:45)
[2021-04-27] MEDS: amLODIPine 2.5 MG Tablet PO (08:25)
[2021-04-27] MEDS: Acetaminophen 325 MG Tablet 650 MG PO ×2 (08:25→16:20)
[2021-04-27] MEDS: Heparin Injection (Vial) 5,000 UNIT/ML VIAL 5000 UNIT SC ×2 (08:25→22:45)
[2021-04-27] MEDS: Atenolol 50 MG Tablet PO (08:25)
--- NOTE | 2021-04-27 11:38 | PCM.PN.HOSP ---
Subjective Subjective No fever. Patient on air Vo, 86% FiO2. Patient feels subjectively better on air Vo in regards to breathing. Objective Data Objective Data Vital Signs: Vital Signs Temp Pulse Resp BP Pulse Ox 98.2 F 66 20 H 131/90 H 95 04/27/21 08:22 04/27/21 08:22 04/27/21 08:22 04/27/21 08:22 04/27/21 08:22 Oxygen Flow Rate (L/min) 55 Oxygen Delivery Method Airvo Weight: 270 lb 5.011 oz Body Mass Index (BMI) 35.6 Intake & Output: Intake and Output for Last 24 Hours 04/25/21 04/26/21 04/27/21 23:59 23:59 23:59 Intake Total 3831.67 / 3831.67 2901.67 / 2901.67 1150 / 1150 Output Total 1850 / 1850 1100 / 1100 1000 / 1000 Balance 1981.67 / 1980.67 1801.67 / 1801.67 150 / 150 Lab / Micro Data Result Diagrams: 04/27/21 05:58 04/27/21 05:58 Labs: Laboratory Results - last 24 hr 04/26/21 18:54: Creatinine 7.8 H*, Est GFR (MDRD) Af Amer 10 L, Est GFR (MDRD) Non-Af 8 L, Urine Collection Time 24.0, Timed Urine Volume 4050, Urine Creatinine 43.2, Creatinine Clearance 16 L 04/26/21 18:54: Urine Collection Time 24.0, Timed Urine Volume 4050, Ur Total Protein 24 Hr 6463.8 H, Urine Total Protein 159.6 H 04/27/21 05:58: WBC 13.2 H, RBC 3.93 L, Hgb 11.1 L, Hct 32.2 L, MCV 81.9, MCH 28.2, MCHC 34.5, RDW Std Deviation 41.0, RDW Coeff of Martita 13.6, Plt Count 248, MPV 10.9, Immature Gran % (Auto) 0.700, Neut % (Auto) 89.9 H, Lymph % (Auto) 3.4 L, [place] % (Auto) 5.9, Eos % (Auto) 0.0, Baso % (Auto) 0.1, Absolute Neuts (auto) 11.9 H, Absolute Lymphs (auto) 0.45 L, Nucleated RBC % 0 04/27/21 05:58: Sodium 136, Potassium 4.5, Chloride 99, Carbon Dioxide 23.0, Anion Gap 14, BUN 114 H*, Creatinine 7.17 H, Estim Creat Clear Calc 14.39, Est GFR (MDRD) Af Amer 11 L, Est GFR (MDRD) Non-Af 9 L, BUN/Creatinine Ratio 15.9, Glucose 126 H, Calcium 8.4 L, Total Bilirubin 0.40, AST 48 H, ALT 24, Alkaline Phosphatase 53, Total Protein 6.7, Albumin 2.3 L, Globulin 4.4 H, Albumin/Globulin Ratio 0.5 L Micro: Microbiology 04/23/21 12:22 Nasal Secretion SARS-CoV-2 Antigen (Rapid) - Final SARS-CoV-2 (COVID 19) Physical Exam Narrative Patient had 24-hour urine collection. General: Alert, Oriented x3, Cooperative, morbid obese BMI 35.7 kg/m?. HEENT: Atraumatic, PERRLA, EOMI, Normocephalic Oral: No Gingival or Mucosal Lesions/ Ulcerations Neck: Supple, No JVD, Negative Carotid Bruits Lungs: Air entry diminished in bilateral lung bases. Bilateral fine expiratory rhonchi. On air Vo. Cardiovascular: Regular rate, Regular Rhythm, Normal S1, Normal S2, No murmurs Abdomen: Bowel Sounds Present, Soft, Non Tender, Non-Distended : Voiding spontaneously states no decrease.. No renal angle tenderness. No suprapubic tenderness. Extremities: No edema, Capillary Refill Less than 3 Seconds Skin: No rashes, No breakdown Musculoskeletal: No Tenderness to Palpation of Joints or Extremities Neurological: Cranial nerves II-XII grossly intact, DTR 2+/4 Psych/Mental Status: Normal Affect, Appropriate. Assessment & Plan Assessment/Plan (1) BEST (acute kidney injury): (2) COVID-19: PLAN: 1. Acute kidney injury on chronic kidney disease probably stage IV: Patient last evaluated creatinine was 3.7 2020. Normally follows with formula weigher in [facility]. Discussed with the formula weigher Dr. Varghese. Kidney ultrasound shows numerous bilateral simple renal cyst compatible with PCKD. Mild thickening of urinary bladder wall. UA shows proteinuria, glucose 50 elevated. Urine random sodium 43, creatinine 47.3. pH 6.0. SG 1.010. Patient denies burning micturition, increased frequency urgency or recent decrease in urine output. Try to get records from [facility]. 04/25: Labs reviewed. Not significant improvement in creatinine. K5.5 BUN high 111 but patient not having signs and symptoms of uremia. Discussed with formula weigher. Dialysis not urgent. 04/26: Seen by formula weigher. Slight decrease in creatinine. Continue to monitor kidney function. Urine output 1100 mL. On bicarb drip. 24-hour creatinine clearance and protein ordered by formula weigher. 04/27: Urine total protein 159.6 mg/dL, total 24-hour protein 6463.8 mg, more than 6 g. Overall with his nephrotic range proteinuria and creatinine clearance is 16 mL/min. Medical Van [employer] is monitoring. Urine output 1000 mL. Total 4 number of voids 2. COVID-19: Currently pulse ox 95% on room air. Continue dexamethasone 6 mg. Not candidate for remdesivir because of BEST and is not hypoxic. Onset of symptoms on 04/16. Need quarantine through 327. Unvaccinated. 04/25: Mucinex D. Advised aggressive incentive spirometry and Pep. 04/26: Worsening of respiratory status. Started on AIRVO. 04/27: On air Vo high FiO2. Consult ID whether he qualifies for baricitinib 3. Morbid obesity BMI about 35.9 Complicates overall care and recovery 4. VTE prophylaxis with subcu heparin. Hemoglobin 11 g. Platelet count 237 Clinical Impression(s) from Imaging Studies Chest X-Ray 04/23/21 12:45 IMPRESSION: Multifocal infiltrates with features commonly reported with viral pneumonia. Renal Ultrasound 04/23/21 14:51 IMPRESSION: Numerous bilateral simple renal cysts compatible with polycystic kidney disease. Mild thickening of the urinary bladder wall, cannot exclude cystitis. If this represents a clinical concern, recommend follow-up with urinalysis. Charges/Coding Visit Charges Inpatient E&M: 21521 Subs Hosp L2
--- NOTE | 2021-04-27 16:19 | NURSING ---
Pt was laying prone for over an hour. This nurse is now getting him up in his chair.
[2021-04-27] MEDS: Pravastatin 80 MG Tablet PO (22:45)
[2021-04-28] VITALS (12 sets, daily range): BP systolic 122–132; BP diastolic 65–94; PULSE 63–77; RESP 18–20; TEMP 36.8–37.1; O2SAT 90–98
[2021-04-28 06:50] LABS: Absolute Lymphocyte Count 0.42 X10^3/uL (0.83-4.51); Absolute Neutrophil Count 9.7 X10^3/uL (2.0-7.7); Basophil# 0.02 X10^3/uL; Basophil% 0.2 % (0-1); Hematocrit 32.9 % (40-54); Lymphocyte # 0.42 X10^3/ul (0.83-4.51); Lymphocyte % 3.9 % (19-41); Mean Corp Hgb Conc 33.4 g/dL (32-36); Mean Corpuscular Hgb 27.7 pg (27.0-32.0); Mean Corpuscular Volume 82.9 fL (80-94); Mean Platelet Vol. 10.7 fl (6.2-12.0); Monocyte% 3.7 % (0-10); NRBC Flagged by Analyzer 0 % (0-5); Neutrophil # 9.71 X10^3/uL (2.7-7.7); Neutrophil % 90.7 % (47-70); POSITIVE DIFFERENTIAL YES; Platelet Count 283 K/mm3 (150-450); RBC Distribution Width CV 13.4 % (11.6-14.6); RBC Distribution Width SD 40.8 fl (35.1-43.9); Red Blood Count 3.97 M/mm3 (4.6-6.2); White Blood Count 10.7 K/mm3 (4.4-11.0)
[2021-04-28 07:18] LABS: Differential Indicated SCAN CRITERIA MET
[2021-04-28 07:37] LABS: ALB/GLOB Ratio 0.4 RATIO (0.9-2.4); AST(SGOT) 45 U/L (15-37); Alanine Aminotransfer ALT/SGPT 26 U/L (16-61); Albumin, Serum 2.1 g/dL (3.2-5.0); Alkaline Phosphatase 63 U/L (45-117); Anion Gap 11 (5-15); BUN 103 mg/dL (7-18); BUN/Creat Ratio 16.3 RATIO (10-20); Calcium,Total 8.8 mg/dL (8.5-10.1); Chloride 97 mmol/L (98-107); EST Glomerular Filtration Rate 10 mL/min (>60); Est Glom Filt Rate - Afr Amer 12 mL/min (>60); Estimated Creatinine Clearance 16.38 ml/min; Globulin 4.7 g/dL (2.2-4.2); Glucose 116 mg/dL (74-106); Potassium 4.4 mmol/L (3.5-5.1); Protein, Total 6.8 g/dL (6.4-8.2); Sodium Level 138 mmol/L (136-145)
[2021-04-28] MEDS: dexAMETHasone 4 MG Tablet 6 MG PO (08:18)
[2021-04-28] MEDS: Paroxetine 20 MG Tablet 40 MG PO (08:18)
[2021-04-28] MEDS: guaiFENesin/D-Methorphan TAB.SR.12H 1 TABLET PO ×2 (08:18→22:18)
[2021-04-28] MEDS: amLODIPine 2.5 MG Tablet PO (08:18)
[2021-04-28] MEDS: Allopurinol 100 MG Tablet PO (08:19)
[2021-04-28] MEDS: Atenolol 50 MG Tablet PO (08:19)
[2021-04-28] MEDS: Heparin Injection (Vial) 5,000 UNIT/ML VIAL 5000 UNIT SC ×2 (08:20→22:19)
[2021-04-28] MEDS: Levothyroxine 100 MCG Tablet PO (08:20)
[2021-04-28] MEDS: Acetaminophen 325 MG Tablet 650 MG PO (08:32)
--- NOTE | 2021-04-28 10:39 | CON.PCM.ID_ITS ---
HPI Consult Data Date of Consult: 04/28/21 HPI Narrative HPI Narrative: KULWINDER JEAN, is a 45 M who presents increasing shortness of breath roughly 1 week prior to coming to the hospital. Was found to be COVID-19 positive. Patient has multiple comorbidities including polycystic kidney disease with chronic renal disease, obesity and possible obstructive sleep apnea. Patient's respiratory status has worsened during this hospitalization. Patient does have poor renal function. Currently on low-dose dexamethasone and DVT prophylaxis. Chest x-ray reviewed shows bilateral infiltrates. Patient states of feeling better on a prone position. [facility] Medical History Asthma Depression Hypertension Hypothyroidism Migraines Polycystic kidney disease Home Medications atenolol 50 mg PO DAILY 04/08/13 [History Last Taken 11/10/17] paroxetine HCl [Paxil] 40 mg PO DAILY 04/08/13 [History Last Taken 11/10/17] pravastatin 80 mg PO DAILY 11/10/17 [History Last Taken 11/10/17] losartan 25 mg PO DAILY 02/02/19 [History Last Taken Unknown] allopurinol 300 mg PO DAILY 04/23/21 [History Last Taken Unknown] amlodipine 2.5 mg PO DAILY 04/23/21 [History Last Taken Unknown] famotidine 20 mg PO QHS 04/23/21 [History Last Taken Unknown] levothyroxine 100 mcg PO DAILY 04/23/21 [History Last Taken Unknown] trazodone 50 mg PO DAILY 04/23/21 [History Last Taken Unknown] Allergy/AdvReac Type Severity Reaction Status Date / Time No Known Allergies Allergy Verified 04/23/21 12:22 Social History Smoking Status: Never smoker Lab / Micro Data Result Diagrams: 04/28/21 05:10 04/28/21 05:10 Labs: Laboratory Results - last 24 hr 04/28/21 05:10: WBC 10.7, RBC 3.97 L, Hgb 11.0 L, Hct 32.9 L, MCV 82.9, MCH 27.7, MCHC 33.4, RDW Std Deviation 40.8, RDW Coeff of Martita 13.4, Plt Count 283, MPV 10.7, Immature Gran % (Auto) 1.500 H, Neut % (Auto) 90.7 H, Lymph % (Auto) 3.9 L, [place] % (Auto) 3.7, Eos % (Auto) 0.0, Baso % (Auto) 0.2, Absolute Neuts (auto) 9.7 H, Absolute Lymphs (auto) 0.42 L, Nucleated RBC % 0, Differential Comment COMMENT 04/28/21 05:10: Sodium 138, Potassium 4.4, Chloride 97 L, Carbon Dioxide 30.0, Anion Gap 11, BUN 103 H*, Creatinine 6.30 H, Estim Creat Clear Calc 16.38, Est GFR (MDRD) Af Amer 12 L, Est GFR (MDRD) Non-Af 10 L, BUN/Creatinine Ratio 16.3, Glucose 116 H, Calcium 8.8, Total Bilirubin 0.40, AST 45 H, ALT 26, Alkaline Phosphatase 63, Total Protein 6.8, Albumin 2.1 L, Globulin 4.7 H, Albumin/Globulin Ratio 0.4 L COVID-19 pneumonia with hypoxemia in a patient with chronic renal disease secondary to polycystic renal disease. At this point we will continue low-dose dexamethasone plus DVT prophylaxis. I discussed the case with Dr. Ballesteros; barcitinib is contra-indicated in patients with poor renal function i.e. GFR less than 15. We will continue current management.
--- NOTE | 2021-04-28 11:50 | PCM.PN.REN ---
Subjective Subjective still on high oxygen no nausea, vomiting. Cough improved. Still with LAWLER Objective Data Objective Data Vital Signs: Vital Signs Temp Pulse Resp BP Pulse Ox 98.6 F 72 20 H 132/87 H 93 04/28/21 08:13 04/28/21 08:13 04/28/21 08:13 04/28/21 08:13 04/28/21 08:13 Oxygen Flow Rate (L/min) 55 Oxygen Delivery Method Airvo Weight: 122.612 kg Body Mass Index (BMI) 35.6 Intake & Output: Intake and Output for Last 24 Hours 04/26/21 04/27/21 04/28/21 23:59 23:59 23:59 Intake Total 2901.67 / 2901.67 3440 / 3440 1650 / 1650 Output Total 1100 / 1100 2200 / 2200 1500 / 1500 Balance 1801.67 / 1801.67 1240 / 1240 150 / 150 Lab / Micro Data Result Diagrams: 04/28/21 05:10 04/28/21 05:10 Labs: Laboratory Results - last 24 hr 04/28/21 05:10: WBC 10.7, RBC 3.97 L, Hgb 11.0 L, Hct 32.9 L, MCV 82.9, MCH 27.7, MCHC 33.4, RDW Std Deviation 40.8, RDW Coeff of Martita 13.4, Plt Count 283, MPV 10.7, Immature Gran % (Auto) 1.500 H, Neut % (Auto) 90.7 H, Lymph % (Auto) 3.9 L, [place] % (Auto) 3.7, Eos % (Auto) 0.0, Baso % (Auto) 0.2, Absolute Neuts (auto) 9.7 H, Absolute Lymphs (auto) 0.42 L, Nucleated RBC % 0, Differential Comment COMMENT 04/28/21 05:10: Sodium 138, Potassium 4.4, Chloride 97 L, Carbon Dioxide 30.0, Anion Gap 11, BUN 103 H*, Creatinine 6.30 H, Estim Creat Clear Calc 16.38, Est GFR (MDRD) Af Amer 12 L, Est GFR (MDRD) Non-Af 10 L, BUN/Creatinine Ratio 16.3, Glucose 116 H, Calcium 8.8, Total Bilirubin 0.40, AST 45 H, ALT 26, Alkaline Phosphatase 63, Total Protein 6.8, Albumin 2.1 L, Globulin 4.7 H, Albumin/Globulin Ratio 0.4 L Micro: Microbiology 04/23/21 12:22 Nasal Secretion SARS-CoV-2 Antigen (Rapid) - Final SARS-CoV-2 (COVID 19) Physical Exam Const alert and oriented x3 General Appearance: cooperative and other mild conversational dyspnea Orientation / Consciousness: awake and oriented to person HEENT normocephalic Eyes EOMs intact bilaterally Neck full ROM Lymph Lymphatic: no lymphadenopathy noted Chest Breast/Axilla Inspection: other Other Details: mild conversational dyspnea, clear Resp clear to auscultation bilaterally Auscultation: clear to auscultation bilaterally Cardio regular rate GI non-tender and non-distended GI Narrative: obese Inspection: Negative for abdominal distention Auscultation: normoactive bowel sounds Palpation: soft Groin / Perineum Exam: Negative for edema Extremity no clubbing, cyanosis or edema Skin Skin Narrative: multiple tattoos Trauma: other multiple tattoos on chest, arms Neuro Sensorium / Orientation: awake, alert and other anxious Motor Exam: strength 5/5 throughout; Negative for asterixis Coordination: other (restless legs) Psych cooperative Mood & Affect: anxious Assessment & Plan Assessment/Plan (1) BEST (acute kidney injury): PLAN: acute on CKD Stage 4 due to COVID infection. Creatinine improved to 6.3. CRCL 16cc/min Baseline creatinine 5.1 in December 2020. Followed by [facility] nephrology dept. No urgent need to initiate dialysis at this time. Continue to monitor renal fxn. (2) CKD (chronic kidney disease), stage IV: PLAN: due to PCKD with large kidneys bilat RK 20cm, LK 21cm on US. Followed by [facility] nephrology dept. Evaluated for kidney tx (3) History of polycystic kidney disease: (4) COVID-19: PLAN: unvaccinated with continued symptoms of SOB on steroids. (5) Hyperkalemia: PLAN: due to renal failure follow renal diet, K improved (6) Metabolic acidosis: PLAN: due to renal failure,dc iv bicarb drip (7) Hypertension: PLAN: stable
[2021-04-28] MEDS: 0.9% Saline Lock 10 ML Syringe IV (12:22)
--- NOTE | 2021-04-28 14:52 | PCM.PN.HOSP ---
Subjective Subjective Feels better proned. On Airvo and NRB maintaining sats around 91%. Objective Data Objective Data Vital Signs: Vital Signs Temp Pulse Resp BP Pulse Ox 37.1 C 71 20 H 122/65 H 98 04/28/21 13:37 04/28/21 13:37 04/28/21 13:37 04/28/21 13:37 04/28/21 13:37 Oxygen Flow Rate (L/min) 55 Oxygen Delivery Method Airvo Weight: 122.612 kg Body Mass Index (BMI) 35.6 Intake & Output: Intake and Output for Last 24 Hours 04/26/21 04/27/21 04/28/21 23:59 23:59 23:59 Intake Total 2901.67 / 2901.67 3440 / 3440 2506.67 / 2506.67 Output Total 1100 / 1100 2200 / 2200 1950 / 1950 Balance 1801.67 / 1801.67 1240 / 1240 556.67 / 556.67 Lab / Micro Data Result Diagrams: 04/28/21 05:10 04/28/21 05:10 Labs: Laboratory Results - last 24 hr 04/28/21 05:10: WBC 10.7, RBC 3.97 L, Hgb 11.0 L, Hct 32.9 L, MCV 82.9, MCH 27.7, MCHC 33.4, RDW Std Deviation 40.8, RDW Coeff of Martita 13.4, Plt Count 283, MPV 10.7, Immature Gran % (Auto) 1.500 H, Neut % (Auto) 90.7 H, Lymph % (Auto) 3.9 L, [place] % (Auto) 3.7, Eos % (Auto) 0.0, Baso % (Auto) 0.2, Absolute Neuts (auto) 9.7 H, Absolute Lymphs (auto) 0.42 L, Nucleated RBC % 0, Differential Comment COMMENT 04/28/21 05:10: Sodium 138, Potassium 4.4, Chloride 97 L, Carbon Dioxide 30.0, Anion Gap 11, BUN 103 H*, Creatinine 6.30 H, Estim Creat Clear Calc 16.38, Est GFR (MDRD) Af Amer 12 L, Est GFR (MDRD) Non-Af 10 L, BUN/Creatinine Ratio 16.3, Glucose 116 H, Calcium 8.8, Total Bilirubin 0.40, AST 45 H, ALT 26, Alkaline Phosphatase 63, Total Protein 6.8, Albumin 2.1 L, Globulin 4.7 H, Albumin/Globulin Ratio 0.4 L Micro: Microbiology 04/23/21 12:22 Nasal Secretion SARS-CoV-2 Antigen (Rapid) - Final SARS-CoV-2 (COVID 19) Physical Exam Const alert and no apparent distress Resp normal respiratory effort, no retractions, no use of accessory muscles and clear to auscultation bilaterally Cardio regular rate, regular rhythm, S1 normal heart sound and S2 normal heart sound GI normal to inspection, nondistended, normoactive bowel sounds, soft to palpation, non-tender and non-distended Extremity normal to inspection Assessment & Plan Assessment/Plan (1) BEST (acute kidney injury): (2) COVID-19: PLAN: 1. Acute kidney injury on CKD4 PCKD Improving Non-oliguric US showed numerous bilateral simple renal cysts Nephrology consultation, Dr. Varghese notified 2. Acute hypoxic respiratory failure 2/2 COVID 19. Was on room air on admission recheck CXR, check D-dimer HLIV check pneumonia work up. pt showing compliance with proning and using incentive spirometer. 3.COVID-19 Patient was not hypoxic but did have a pulse ox of 93% He did receive 10 mg of IV dexamethasone. We will continue with 6 mg of dexamethasone for total of 9 more days. Patient not a candidate for remdesivir as he is currently not hypoxic and is acute kidney injury Patient is onset was the eighth. Patient will need to quarantine through the . Unvaccinated DW Dr. Chaudhry, no baricitinib given BEST 4. Morbid obesity BMI about 35.9 Complicates overall care and recovery 5. VTE prophylaxis with subcu heparin Charges/Coding Visit Charges Inpatient E&M: 58404 Subs Hosp L2
--- NOTE | 2021-04-28 15:22 | RAD_ITS ---
STUDY: X-RAY CHEST REASON FOR EXAM: Male, 45 years old. Respiratory failure TECHNIQUE: Single AP portable view of the chest. COMPARISON: Comparison is made with prior study dated 04/23/2021. FINDINGS: Since prior study, there has been progressive bilateral pulmonary infiltrates involving both lungs. There is no demonstrated pleural abnormality. Normal size heart. Normal mediastinum and edson. Normal visualized pulmonary arteries. Normal visualized aortic arch and descending thoracic aorta. Normal visualized thoracic spine. Normal visualized ribs, clavicles, and shoulders. There is no demonstrated abnormality of the visualized soft tissue structures of the upper abdomen. RAD/Chest 1 View (Portable) IMPRESSION: Progressive increase in the bilateral multifocal pulmonary infiltrates as compared to prior study. Electronically Signed: Sam Bruner MD at 15:40 EST , Service support ,
[2021-04-28 15:50] LABS: D-Dimer Quantitative (DVT/PE) 2.24 FEU/ug/m (0.27-0.49)
[2021-04-28] MEDS: Pravastatin 80 MG Tablet PO (22:18)
[2021-04-29] VITALS (13 sets, daily range): BP systolic 129–160; BP diastolic 83–98; PULSE 63–94; RESP 18–26; TEMP 36.7–37.2; O2SAT 91–94
[2021-04-29 06:52] LABS: Absolute Lymphocyte Count 0.32 X10^3/uL (0.83-4.51); Absolute Neutrophil Count 7.1 X10^3/uL (2.0-7.7); Basophil# 0.01 X10^3/uL; Basophil% 0.1 % (0-1); Hematocrit 33.7 % (40-54); Hemoglobin 11.1 g/dL (13.0-16.5); Lymphocyte # 0.32 X10^3/ul (0.83-4.51); Mean Corp Hgb Conc 32.9 g/dL (32-36); Mean Corpuscular Hgb 27.9 pg (27.0-32.0); Mean Corpuscular Volume 84.7 fL (80-94); Mean Platelet Vol. 10.8 fl (6.2-12.0); Monocyte# 0.35 X10^3/uL; Monocyte% 4.4 % (0-10); NRBC Flagged by Analyzer 0 % (0-5); Neutrophil # 7.06 X10^3/uL (2.7-7.7); Neutrophil % 89.2 % (47-70); POSITIVE DIFFERENTIAL YES; Platelet Count 303 K/mm3 (150-450); RBC Distribution Width CV 13.5 % (11.6-14.6); RBC Distribution Width SD 42.2 fl (35.1-43.9); Red Blood Count 3.98 M/mm3 (4.6-6.2); White Blood Count 7.9 K/mm3 (4.4-11.0)
[2021-04-29 06:54] LABS: Differential Indicated SCAN CRITERIA MET
[2021-04-29 07:12] LABS: Differential Comment SCANNED
[2021-04-29 07:16] LABS: ALB/GLOB Ratio 0.4 RATIO (0.9-2.4); AST(SGOT) 42 U/L (15-37); Alanine Aminotransfer ALT/SGPT 27 U/L (16-61); Albumin, Serum 2.1 g/dL (3.2-5.0); Alkaline Phosphatase 63 U/L (45-117); Anion Gap 9 (5-15); BUN 97 mg/dL (7-18); BUN/Creat Ratio 16.7 RATIO (10-20); Calcium,Total 8.8 mg/dL (8.5-10.1); Chloride 99 mmol/L (98-107); Creatinine, Serum 5.81 mg/dL (0.70-1.30); EST Glomerular Filtration Rate 11 mL/min (>60); Est Glom Filt Rate - Afr Amer 14 mL/min (>60); Estimated Creatinine Clearance 17.76 ml/min; Globulin 4.8 g/dL (2.2-4.2); Glucose 80 mg/dL (74-106); Potassium 4.8 mmol/L (3.5-5.1); Protein, Total 6.9 g/dL (6.4-8.2); Sodium Level 138 mmol/L (136-145)
[2021-04-29 09:45] LABS: International Normalized Ratio 1.1; Prothrombin Time (Protime)PT. 13.5 SECONDS (11.7-14.9)
[2021-04-29 09:46] LABS: Partial Thromboplast Time 30.4 Seconds (24.1-36.2)
[2021-04-29] MEDS: 0.9% Saline Lock 10 ML Syringe IV ×3 (10:52→19:58)
[2021-04-29] MEDS: Heparin Injection (Vial) 5,000 UNIT/ML VIAL IV (11:05)
[2021-04-29] MEDS: Paroxetine 20 MG Tablet 40 MG PO (11:18)
[2021-04-29] MEDS: Allopurinol 100 MG Tablet PO (11:18)
[2021-04-29] MEDS: dexAMETHasone 4 MG Tablet 6 MG PO (11:18)
[2021-04-29] MEDS: Atenolol 50 MG Tablet PO (11:18)
[2021-04-29] MEDS: Levothyroxine 100 MCG Tablet PO (11:19)
[2021-04-29] MEDS: guaiFENesin/D-Methorphan TAB.SR.12H 1 TABLET PO ×2 (11:19→19:59)
[2021-04-29] MEDS: amLODIPine 2.5 MG Tablet PO (11:19)
--- NOTE | 2021-04-29 14:10 | PCM.PN.HOSP ---
Subjective Subjective sats easily dropping with movement. complies with prone positioning and IS. Objective Data Objective Data Vital Signs: Vital Signs Temp Pulse Resp BP Pulse Ox 37.1 C 80 22 H 160/98 H 94 04/29/21 13:50 04/29/21 13:50 04/29/21 13:50 04/29/21 13:50 04/29/21 13:50 Oxygen Flow Rate (L/min) 60 Oxygen Delivery Method Airvo Weight: 121 kg Body Mass Index (BMI) 35.6 Intake & Output: Intake and Output for Last 24 Hours 04/27/21 04/28/21 04/29/21 23:59 23:59 23:59 Intake Total 3440 / 3440 3006.67 / 3006.67 700 / 700 Output Total 2200 / 2200 2600 / 2600 650 / 650 Balance 1240 / 1240 406.67 / 406.67 50 / 50 Lab / Micro Data Result Diagrams: 04/29/21 05:17 04/29/21 05:17 Labs: Laboratory Results - last 24 hr 04/28/21 15:22: D-Dimer Quant (PE/DVT) 2.24 H* 04/29/21 05:17: WBC 7.9, RBC 3.98 L, Hgb 11.1 L, Hct 33.7 L, MCV 84.7, MCH 27.9, MCHC 32.9, RDW Std Deviation 42.2, RDW Coeff of Martita 13.5, Plt Count 303, MPV 10.8, Immature Gran % (Auto) 2.300 H, Neut % (Auto) 89.2 H, Lymph % (Auto) 4.0 L, [place] % (Auto) 4.4, Eos % (Auto) 0.0, Baso % (Auto) 0.1, Absolute Neuts (auto) 7.1, Absolute Lymphs (auto) 0.32 L, Nucleated RBC % 0, Differential Comment SCANNED 04/29/21 05:17: Sodium 138, Potassium 4.8, Chloride 99, Carbon Dioxide 30.0, Anion Gap 9, BUN 97 H, Creatinine 5.81 H, Estim Creat Clear Calc 17.76, Est GFR (MDRD) Af Amer 14 L, Est GFR (MDRD) Non-Af 11 L, BUN/Creatinine Ratio 16.7, Glucose 80, Calcium 8.8, Total Bilirubin 0.50, AST 42 H, ALT 27, Alkaline Phosphatase 63, Total Protein 6.9, Albumin 2.1 L, Globulin 4.8 H, Albumin/Globulin Ratio 0.4 L 04/29/21 09:25: PT 13.5, INR 1.1, APTT 30.4 Micro: Microbiology 04/29/21 04:00 Urine, Clean Catch Legionella Antigen - Final 04/29/21 04:00 Urine, Clean Catch Streptococcus pneumoniae Antigen (M - Final 04/23/21 12:22 Nasal Secretion SARS-CoV-2 Antigen (Rapid) - Final SARS-CoV-2 (COVID 19) Radiography Diagnostic Testing: Radiology Impression Chest X-Ray 04/28/21 15:22 IMPRESSION: Progressive increase in the bilateral multifocal pulmonary infiltrates as compared to prior study. Electronically Signed: Sam Bruner MD at 15:40 EST , Service support , Physical Exam Const Constitutional Narrative: lying in bed supine on Airvo. Resp normal respiratory effort, no retractions, no use of accessory muscles and clear to auscultation bilaterally Cardio regular rate, regular rhythm, S1 normal heart sound and S2 normal heart sound GI normal to inspection, nondistended, normoactive bowel sounds, soft to palpation, non-tender and non-distended Extremity normal to inspection Assessment & Plan Assessment/Plan (1) BEST (acute kidney injury): (2) COVID-19: PLAN: 1. 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 Has actually been evaluated for xplant. Improving Non-oliguric US showed numerous bilateral simple renal cysts Nephrology consultation, Dr. Varghese notified Baseline creatinine 5.1 (reviewed [facility] records) 2. Acute hypoxic respiratory failure 2/2 COVID 19. Was on room air on admission recheck CXR, check D-dimer HLIV check pneumonia work up. pt showing compliance with proning and using incentive spirometer. gentle diuresis 3.COVID-19 Patient intially was not hypoxic but did have a pulse ox of 93% He did receive 10 mg of IV dexamethasone. We will continue with 6 mg of dexamethasone for total of 9 more days. Patient not a candidate for remdesivir as he is currently not hypoxic and is acute kidney injury Patient is onset was the eighth. Patient will need to quarantine through the . Unvaccinated DW Dr. Chaudhry, no baricitinib given BEST 4. Morbid obesity BMI about 35.9 Complicates overall care and recovery 5. VTE prophylaxis with subcu heparin Charges/Coding Visit Charges Inpatient E&M: 18134 Subs Hosp L2
[2021-04-29] MEDS: Furosemide 20 MG/2 ML VIAL IV (14:28)
[2021-04-29 17:52] LABS: Partial Thromboplast Time 130.9 Seconds (24.1-36.2)
[2021-04-29] MEDS: Pravastatin 80 MG Tablet PO (19:59)
--- NOTE | 2021-04-29 20:13 | NURSING ---
Heprin drip restarted at 1957. APTT scheduled to be drawn at 0200.
[2021-04-30] VITALS (16 sets, daily range): BP systolic 141–151; BP diastolic 93–100; PULSE 61–96; RESP 12–26; TEMP 35.7–37.1; O2SAT 87–95
[2021-04-30 03:35] LABS: Absolute Lymphocyte Count 0.32 X10^3/uL (0.83-4.51); Absolute Neutrophil Count 6.9 X10^3/uL (2.0-7.7); Basophil# 0.05 X10^3/uL; Basophil% 0.6 % (0-1); Hematocrit 33.9 % (40-54); Hemoglobin 11.7 g/dL (13.0-16.5); Lymphocyte # 0.32 X10^3/ul (0.83-4.51); Lymphocyte % 3.9 % (19-41); Mean Corp Hgb Conc 34.5 g/dL (32-36); Mean Corpuscular Hgb 28.2 pg (27.0-32.0); Mean Corpuscular Volume 81.7 fL (80-94); Mean Platelet Vol. 9.9 fl (6.2-12.0); Monocyte# 0.52 X10^3/uL; Monocyte% 6.4 % (0-10); NRBC Flagged by Analyzer 0 % (0-5); Neutrophil # 6.88 X10^3/uL (2.7-7.7); Neutrophil % 84.6 % (47-70); POSITIVE DIFFERENTIAL YES; Platelet Count 310 K/mm3 (150-450); RBC Distribution Width CV 13.3 % (11.6-14.6); RBC Distribution Width SD 39.7 fl (35.1-43.9); Red Blood Count 4.15 M/mm3 (4.6-6.2); White Blood Count 8.1 K/mm3 (4.4-11.0)
[2021-04-30 03:39] LABS: Differential Indicated SCAN CRITERIA MET
[2021-04-30 03:52] LABS: Partial Thromboplast Time 107.5 Seconds (24.1-36.2)
[2021-04-30 04:00] LABS: ALB/GLOB Ratio 0.4 RATIO (0.9-2.4); AST(SGOT) 46 U/L (15-37); Alanine Aminotransfer ALT/SGPT 30 U/L (16-61); Alkaline Phosphatase 70 U/L (45-117); Anion Gap 11 (5-15); BUN 98 mg/dL (7-18); BUN/Creat Ratio 17.9 RATIO (10-20); Calcium,Total 9.1 mg/dL (8.5-10.1); Chloride 100 mmol/L (98-107); Creatinine, Serum 5.46 mg/dL (0.70-1.30); EST Glomerular Filtration Rate 12 mL/min (>60); Est Glom Filt Rate - Afr Amer 15 mL/min (>60); Globulin 5.2 g/dL (2.2-4.2); Glucose 121 mg/dL (74-106); Potassium 4.9 mmol/L (3.5-5.1); Protein, Total 7.2 g/dL (6.4-8.2); Sodium Level 135 mmol/L (136-145)
[2021-04-30 04:08] LABS: Differential Comment SCANNED
[2021-04-30] MEDS: 0.9% Saline Lock 10 ML Syringe IV ×4 (05:55→21:15)
[2021-04-30] MEDS: dexAMETHasone 4 MG Tablet 6 MG PO (08:38)
[2021-04-30] MEDS: amLODIPine 2.5 MG Tablet PO (08:40)
[2021-04-30] MEDS: Paroxetine 20 MG Tablet 40 MG PO (08:40)
[2021-04-30] MEDS: Furosemide 40 MG/4 ML Vial IV (08:41)
[2021-04-30] MEDS: Allopurinol 100 MG Tablet PO (08:41)
[2021-04-30] MEDS: Atenolol 50 MG Tablet PO (08:41)
[2021-04-30] MEDS: guaiFENesin/D-Methorphan TAB.SR.12H 1 TABLET PO ×2 (08:42→21:15)
[2021-04-30] MEDS: Levothyroxine 100 MCG Tablet PO (08:55)
--- NOTE | 2021-04-30 09:18 | NURSING ---
Heparin gtt maintained at 10ml/hr. This nurse is aware that next ptt level to be done at 1158 am this morning 04/30.
--- NOTE | 2021-04-30 11:36 | NURSING ---
This nurse called into room approximately 15min ago as pt spo2 was 78% on the monitor at the nurses station. This nurse told pt to lay on his side. Pt did so but had stated he was just up to bsc to urinate. This nurse in with pt now and spo2 was 93% on Airvo. David From [facility] was called by [facility] while pt was 78% before pt repositioned onto his Rt side. David, SWITCHBOX [employer]BL[employer] stated pt was on the max amt of Airvo. This nurse informed pt that and that the next step most likely would be to be on bipap and explained what that was. This nurse made pt use I.S and peep at this time as pt has not touched it this morning.
--- NOTE | 2021-04-30 13:01 | PCM.PN.HOSP ---
Subjective Subjective Feels better. Still on Airvo. Objective Data Objective Data Vital Signs: Vital Signs Temp Pulse Resp BP Pulse Ox 36.9 C 66 20 H 151/97 H 93 04/30/21 11:41 04/30/21 11:41 04/30/21 11:41 04/30/21 11:41 04/30/21 11:41 Oxygen Flow Rate (L/min) 60 Oxygen Delivery Method Airvo Weight: 121 kg Body Mass Index (BMI) 35.6 Intake & Output: Intake and Output for Last 24 Hours 04/28/21 04/29/21 04/30/21 23:59 23:59 23:59 Intake Total 3006.67 / 3006.67 1308.27 / 1308.27 141.73 / 141.73 Output Total 2600 / 2600 1250 / 1250 Balance 406.67 / 406.67 58.27 / 58.27 141.73 / 141.73 Lab / Micro Data Result Diagrams: 04/30/21 03:26 04/30/21 03:26 Labs: Laboratory Results - last 24 hr 04/29/21 17:10: APTT 130.9 H* 04/30/21 03:26: WBC 8.1, RBC 4.15 L, Hgb 11.7 L, Hct 33.9 L, MCV 81.7, MCH 28.2, MCHC 34.5, RDW Std Deviation 39.7, RDW Coeff of Martita 13.3, Plt Count 310, MPV 9.9, Immature Gran % (Auto) 4.500 H, Neut % (Auto) 84.6 H, Lymph % (Auto) 3.9 L, [place] % (Auto) 6.4, Eos % (Auto) 0.0, Baso % (Auto) 0.6, Absolute Neuts (auto) 6.9, Absolute Lymphs (auto) 0.32 L, Nucleated RBC % 0, Differential Comment SCANNED 04/30/21 03:26: Sodium 135 L, Potassium 4.9, Chloride 100, Carbon Dioxide 24.0, Anion Gap 11, BUN 98 H, Creatinine 5.46 H, Estim Creat Clear Calc 18.90, Est GFR (MDRD) Af Amer 15 L, Est GFR (MDRD) Non-Af 12 L, BUN/Creatinine Ratio 17.9, Glucose 121 H, Calcium 9.1, Total Bilirubin 0.50, AST 46 H, ALT 30, Alkaline Phosphatase 70, Total Protein 7.2, Albumin 2.0 L, Globulin 5.2 H, Albumin/Globulin Ratio 0.4 L 04/30/21 03:26: APTT 107.5 H* Micro: Microbiology 04/29/21 04:00 Urine, Clean Catch Legionella Antigen - Final 04/29/21 04:00 Urine, Clean Catch Streptococcus pneumoniae Antigen (M - Final 04/23/21 12:22 Nasal Secretion SARS-CoV-2 Antigen (Rapid) - Final SARS-CoV-2 (COVID 19) Physical Exam Const alert Resp normal respiratory effort Cardio regular rate, regular rhythm, S1 normal heart sound and S2 normal heart sound GI normal to inspection, nondistended, normoactive bowel sounds, soft to palpation, non-tender and non-distended Extremity normal to inspection Assessment & Plan Assessment/Plan (1) BEST (acute kidney injury): (2) COVID-19: PLAN: 1. Acute kidney injury on CKD4 improving 2/2 PCKD. Has actually been evaluated for xplant. Improving Non-oliguric US showed numerous bilateral simple renal cysts Nephrology consultation, Dr. Varghese notified Baseline creatinine 5.1 (reviewed [facility] records) 2. Acute hypoxic respiratory failure ongoing 2/2 COVID 19. Was on room air on admission HLIV check pneumonia work up. pt showing compliance with proning and using incentive spirometer. repeat furosemide. 3.COVID-19 Patient initially was not hypoxic but did have a pulse ox of 93% He did receive 10 mg of IV dexamethasone. We will continue with 6 mg of dexamethasone for total of 9 more days. Patient not a candidate for remdesivir as he is currently not hypoxic and is acute kidney injury Patient is onset was the eighth. Patient will need to quarantine through the . Unvaccinated DW Dr. Chaudhry, no baricitinib given BEST 4. Morbid obesity BMI about 35.9 Complicates overall care and recovery 5. VTE prophylaxis with subcu heparin Charges/Coding Visit Charges Inpatient E&M: 95429 Subs Hosp L2
[2021-04-30 15:02] LABS: Partial Thromboplast Time 61.5 Seconds (24.1-36.2)
--- NOTE | 2021-04-30 15:09 | NURSING ---
This nurse is aware that ptt is 61.8 and per policy, no change in rate of the heparin and ptt again in 6hrs./
[2021-04-30 20:50] LABS: Partial Thromboplast Time 74.2 Seconds (24.1-36.2)
[2021-04-30] MEDS: Pravastatin 80 MG Tablet PO (21:15)
[2021-05-01] VITALS (45 sets, daily range): BP systolic 65–182; BP diastolic 48–124; PULSE 49–76; RESP 12–28; TEMP 35.1–36.4; O2SAT 80–99
[2021-05-01 06:44] LABS: Hematocrit 41.2 % (40-54); Hemoglobin 13.5 g/dL (13.0-16.5); Mean Corp Hgb Conc 32.8 g/dL (32-36); Mean Corpuscular Volume 85.5 fL (80-94); Mean Platelet Vol. 10.2 fl (6.2-12.0); POSITIVE COUNT YES; POSITIVE DIFFERENTIAL YES; POSITIVE MORPHOLOGY YES; Platelet Count 474 K/mm3 (150-450); RBC Distribution Width CV 13.7 % (11.6-14.6); Red Blood Count 4.82 M/mm3 (4.6-6.2); White Blood Count 11.6 K/mm3 (4.4-11.0)
[2021-05-01 06:46] LABS: Differential Indicated MANUAL DIFF
[2021-05-01 06:57] LABS: Partial Thromboplast Time 74.1 Seconds (24.1-36.2)
[2021-05-01 07:02] LABS: Lymphocyte 3 % (19-41); Metamyelocyte 2 % (0-1); Monocyte 6 % (0-10); Neutrophil-Segmented 88 % (47-70); Platelet Estimate ADEQUATE (ADEQ); Promyelocyte 1 % (0-0); Red Cell Morphology NORM C+C NORMAL (NORM C&C); Total Cells Counted 100 (MANUAL DIFF)
[2021-05-01 07:03] LABS: Absolute Lymphocyte Count 0.35 X10^3/uL (0.83-4.51); Absolute Neutrophil Count 10.2 X10^3/uL (2.0-7.7); Lymphocyte # 0.35 X10^3/ul (0.83-4.51); Neutrophil # 10.23 X10^3/uL (2.7-7.7)
[2021-05-01 07:35] LABS: ALB/GLOB Ratio 0.3 RATIO (0.9-2.4); AST(SGOT) 52 U/L (15-37); Alanine Aminotransfer ALT/SGPT 35 U/L (16-61); Alkaline Phosphatase 82 U/L (45-117); Anion Gap 10 (5-15); BUN 117 mg/dL (7-18); BUN/Creat Ratio 20.7 RATIO (10-20); Calcium,Total 10.1 mg/dL (8.5-10.1); Chloride 101 mmol/L (98-107); Creatinine, Serum 5.66 mg/dL (0.70-1.30); EST Glomerular Filtration Rate 12 mL/min (>60); Est Glom Filt Rate - Afr Amer 14 mL/min (>60); Estimated Creatinine Clearance 18.23 ml/min; Globulin 6.4 g/dL (2.2-4.2); Glucose 105 mg/dL (74-106); Potassium 5.2 mmol/L (3.5-5.1); Protein, Total 8.4 g/dL (6.4-8.2); Sodium Level 134 mmol/L (136-145)
--- NOTE | 2021-05-01 09:26 | CPS ---
Addendum entered and electronically signed by Ernst Davila 05/01/21 09:28: RN and Dr. Rinku sorensen Original Note: Patient placed on AIRVO to eat breakfast this morning but was unable to maintain O2 sat >90%, Patient was switched to AVAPS
[2021-05-01 09:34] LABS: Phosphorus 7.2 mg/dL (2.5-4.9)
--- NOTE | 2021-05-01 11:04 | PN.RENAL_ITS ---
Subjective Subjective up to chair on bipap. denied SOB or worsening cough. Still hypoxic requiring high oxygen flow. CXR with worsening infiltrates. Hungry. Denied nausea, vomiting. No edema Objective Data Objective Data Vital Signs: Vital Signs Temp Pulse Resp BP Pulse Ox 96.5 F L 69 22 H 155/104 H 90 05/01/21 06:53 05/01/21 10:26 05/01/21 10:26 05/01/21 06:53 05/01/21 10:26 Oxygen Flow Rate (L/min) 60 Oxygen Delivery Method Bi-pap Weight: 121 kg Body Mass Index (BMI) 35.6 Intake & Output: Intake and Output for Last 24 Hours 04/29/21 04/30/21 05/01/21 23:59 23:59 23:59 Intake Total 1308.27 / 1308.27 1457.57 / 1457.57 Output Total 1250 / 1250 1200 / 1200 Balance 58.27 / 58.27 257.57 / 257.57 Lab / Micro Data Result Diagrams: 05/02/21 04:20 05/02/21 04:20 Labs: Laboratory Results - last 24 hr 04/30/21 14:40: APTT 61.5 H 04/30/21 20:15: APTT 74.2 H 05/01/21 05:40: WBC 11.6 H, RBC 4.82, Hgb 13.5, Hct 41.2, MCV 85.5, MCH 28.0, MCHC 32.8, RDW Std Deviation 43.0, RDW Coeff of Martita 13.7, Plt Count 474 H, MPV 10.2, Neut % (Auto) Not Reportable, Absolute Neuts (auto) 10.2 H, Absolute Lymphs (auto) 0.35 L, Total Counted 100, Neutrophils % (Manual) 88 H, Lymphocytes % (Manual) 3 L, Monocytes % (Manual) 6, Metamyelocytes % 2 H, Promy elocytes % 1 H, Diff Path Review September, Platelet Estimate ADEQUATE, RBC Morphology NORM C+C 05/01/21 05:40: Sodium 134 L, Potassium 5.2 H, Chloride 101, Carbon Dioxide 23.0, Anion Gap 10, BUN 117 H*, Creatinine 5.66 H, Estim Creat Clear Calc 18.23, Est GFR (MDRD) Af Amer 14 L, Est GFR (MDRD) Non-Af 12 L, BUN/Creatinine Ratio 20.7 H, Glucose 105, Calcium 10.1, Total Bilirubin 0.50, AST 52 H, ALT 35, Alkaline Phosphatase 82, Total Protein 8.4 H, Albumin 2.0 L, Globulin 6.4 H, Albumin/Globulin Ratio 0.3 L 05/01/21 05:40: APTT 74.1 H 05/01/21 05:40: Phosphorus 7.2 H Micro: Microbiology 04/29/21 04:00 Urine, Clean Catch Legionella Antigen - Final 04/29/21 04:00 Urine, Clean Catch Streptococcus pneumoniae Antigen (M - Final 04/23/21 12:22 Nasal Secretion SARS-CoV-2 Antigen (Rapid) - Final SARS-CoV-2 (COVID 19) Physical Exam Const alert and oriented x3 General Appearance: on BiPAP Resp clear to auscultation bilaterally Cardio regular rate GI non-tender and non-distended GI Narrative: obese Palpation: soft Extremity no clubbing, cyanosis or edema Neuro Neuro Narrative: no tremor Assessment & Plan Assessment/Plan (1) BEST (acute kidney injury): PLAN: acute on CKD Stage 4 due to COVID infection. Creatinine slightly increased today. May need iv fluids if creatinine continues to rise. Poor access to fluids while on BIPAP. BUn elevated due to steroid therapy. No urgent need to initiate dialysis at this time. Continue to monitor renal fxn. (2) CKD (chronic kidney disease), stage IV: PLAN: due to PCKD with large kidneys bilat RK 20cm, LK 21cm on US. Followed by [facility] nephrology dept. Evaluated for kidney tx (3) History of polycystic kidney disease: (4) COVID-19: PLAN: continued hypoxia with worsening infiltrates on CXR, on BIPAP (5) Hyperkalemia: PLAN: due to renal failure follow renal diet (6) Hypertension: PLAN: stable (7) Hyperphosphatemia: PLAN: add binders with meals
--- NOTE | 2021-05-01 11:59 | CON.PCM.CC_ITS ---
Assessment & Plan Assessment/Plan (1) Acute respiratory failure with hypoxia: (2) COVID-19: (3) CKD (chronic kidney disease), stage IV: (4) Hyperphosphatemia: (5) History of polycystic kidney disease: PLAN: RECOMMENDATIONS: 1. Continue Decadron as ordered. No Remdesivir or baricitinib secondary to renal function 2. Agree with heparin drip 3. Aggressive blood pressure control per nephrology 4. Obtain sputum culture for possible secondary bacterial infection 5. Repeat chest x-ray 6. Trial of bronchodilators IMPRESSIONS: 1. Acute hypoxic respiratory failure secondary to COVID-19 Very difficult situation. Therapeutic interventions are limited given renal function and patient has progressed despite Decadron therapy. Patient does report he is used inhalers in the past, so mild intermittent asthma could be a complication. Will attempt using bronchodilators for recruitment. We will also obtain a sputum culture and a chest x-ray to look for secondary pulmonary issues that may be a target for intervention. Patient does not appear to be significantly volume overloaded, but would not use supplemental fluids as this can exacerbate hypoxia and given his marginal status would likely result in him requiring intubation. Patient does not appear to have significant metabolic acidosis despite renal function. Patient is being treated with a heparin drip. Despite aggressive interventions, cannot exclude the need for intubation in the next 24 to 48 hours if unable to get off of BiPAP therapy. 2. Polycystic kidney/chronic kidney disease stage IV/obesity/nonvaccinated status/depression Complicates care, management, recovery and prognosis. Okay to continue with baseline medications from my perspective HPI Consult Data Date of Consult: 05/01/21 HPI Narrative HPI Narrative: KULWINDER JEAN is a 45 M, with past medical history listed below, who presented to [facility] on 04/23/[facility]21 secondary to 8 days of cough, fever, chills and body aches. Patient did not reported any significant GI symptoms. Patient does have a history of polycystic kidney leading to chronic kidney disease. In the ER, patient was saturating 93% on room air and had a temperature of 99.9 ?F. Blood pressure was slightly elevated and patient was tachypneic at 20 breaths/min. Patient was given IV fluids with some improvement. Patient was also initiated on IV Decadron after testing came back positive for COVID-19. Laboratory work-up at that time showed a white blood cell count of 8.8, sodium of 132 and a creatinine of 10.3 with a BUN of 97. Chest x-ray showed multifocal infiltrates. The patient was admitted to the floor and initiated on therapy for COVID-19. Dr. Varghese was consulted for renal function. Since being in the hospital, patient has progressively become more hypoxic. Patient reportedly was initially on Airvo and was able to comply with prone positioning. Patient then progressed to requiring BiPAP [id number], so pulmonary was consulted. Patient reports that he has never been a smoker, but has used inhalers in the past when he has a URI. Patient denies any current chest pain, abdominal pain, nausea or vomiting. Patient does report that he is willing to be intubated if it is necessary. Patient does not believe that he is ever had a pulmonary function test or seen a canal boat operator previously. Patient did undergo some work-up for possible kidney transplant. Review of systems somewhat limited secondary to frustration with talking with BiPAP in place, but review of systems otherwise negative from a constitutional, HEENT, respiratory, cardiovascular, GI, genitourinary, musculoskeletal, skin, neurologic, psychiatric and hematologic system unless stated above. [facility] Medical History Asthma Depression Hypertension Hypothyroidism Migraines Polycystic kidney disease Home Medications atenolol 50 mg PO DAILY 04/08/13 [History Last Taken 11/10/17] paroxetine HCl [Paxil] 40 mg PO DAILY 04/08/13 [History Last Taken 11/10/17] pravastatin 80 mg PO DAILY 11/10/17 [History Last Taken 11/10/17] losartan 25 mg PO DAILY 02/02/19 [History Last Taken Unknown] allopurinol 300 mg PO DAILY 04/23/21 [History Last Taken Unknown] amlodipine 2.5 mg PO DAILY 04/23/21 [History Last Taken Unknown] famotidine 20 mg PO QHS 04/23/21 [History Last Taken Unknown] levothyroxine 100 mcg PO DAILY 04/23/21 [History Last Taken Unknown] trazodone 50 mg PO DAILY 04/23/21 [History Last Taken Unknown] Allergy/AdvReac Type Severity Reaction Status Date / Time No Known Allergies Allergy Verified 04/23/21 12:22 Social History Smoking Status: Never smoker ROS ROS Narrative See HPI Physical Exam Const alert and oriented x3 Constitutional Narrative: Multiple tattoos noted. Moderate conversational dyspnea with BiPAP in place, but appears comfortable when resting General Appearance: cooperative and on BiPAP Orientation / Consciousness: awake and oriented to person Nutritional Appearance: obese HEENT normocephalic Eyes EOMs intact bilaterally Neck full ROM Lymph Lymphatic: no lymphadenopathy noted Chest inspection of chest normal Chest: symmetrical chest wall rise; Negative for crepitus Resp clear to auscultation bilaterally Auscultation: clear to auscultation bilaterally Cardio regular rate GI normal to inspection, nondistended, normoactive bowel sounds GI Narrative: obese Groin / Perineum Exam: Negative for edema Extremity no clubbing, cyanosis or edema Skin Trauma: other multiple tattoos on chest, arms Neuro oriented x3, CN's II-XII intact bilaterally and moves all extremities Sensorium / Orientation: awake and alert Motor Exam: strength 5/5 throughout; Negative for asterixis Coordination: other (restless legs) Psych cooperative Mood & Affect: anxious Lab / Micro Data Result Diagrams: 05/01/21 05:40 05/01/21 05:40 Labs: Laboratory Results - last 24 hr 04/30/21 14:40: APTT 61.5 H 04/30/21 20:15: APTT 74.2 H 05/01/21 05:40: WBC 11.6 H, RBC 4.82, Hgb 13.5, Hct 41.2, MCV 85.5, MCH 28.0, MCHC 32.8, RDW Std Deviation 43.0, RDW Coeff of Martita 13.7, Plt Count 474 H, MPV 10.2, Neut % (Auto) Not Reportable, Absolute Neuts (auto) 10.2 H, Absolute Lymphs (auto) 0.35 L, Total Counted 100, Neutrophils % (Manual) 88 H, Lymphocytes % (Manual) 3 L, Monocytes % (Manual) 6, Metamyelocytes % 2 H, Promyelocytes % 1 H, Diff Path Review May foll, Platelet Estimate ADEQUATE, RBC Morphology NORM C+C 05/01/21 05:40: Sodium 134 L, Potassium 5.2 H, Chloride 101, Carbon Dioxide 23.0 , Anion Gap 10, BUN 117 H*, Creatinine 5.66 H, Estim Creat Clear Calc 18.23, Est GFR (MDRD) Af Amer 14 L, Est GFR (MDRD) Non-Af 12 L, BUN/Creatinine Ratio 20.7 H , Glucose 105, Calcium 10.1, Total Bilirubin 0.50, AST 52 H, ALT 35, Alkaline Phosphatase 82, Total Protein 8.4 H, Albumin 2.0 L, Globulin 6.4 H, Albumin/Globulin Ratio 0.3 L 05/01/21 05:40: APTT 74.1 H 05/01/21 05:40: Phosphorus 7.2 H Charges/Coding Visit Charges Inpatient E&M: 54612 Init Hosp L3
[2021-05-01] MEDS: Levothyroxine 100 MCG Tablet PO (12:00)
[2021-05-01] MEDS: dexAMETHasone 4 MG Tablet 6 MG PO (12:00)
[2021-05-01] MEDS: Acetaminophen 325 MG Tablet 650 MG PO (12:01)
[2021-05-01] MEDS: guaiFENesin/D-Methorphan TAB.SR.12H 1 TABLET PO (12:01)
[2021-05-01] MEDS: amLODIPine 2.5 MG Tablet PO (12:02)
[2021-05-01] MEDS: Paroxetine 20 MG Tablet 40 MG PO (12:02)
[2021-05-01] MEDS: Atenolol 50 MG Tablet PO (12:02)
[2021-05-01] MEDS: Allopurinol 100 MG Tablet PO (12:02)
[2021-05-01] MEDS: Ipratropium/Albuterol Sulfate 3 ML AMPUL.NEB INHALATION ×2 (13:08→19:05)
--- NOTE | 2021-05-01 13:27 | PCM.PN.HOSP ---
Subjective Subjective worse. Placed on BiPAP yesterday. Has been able to tolerate, but on 100% FiO2. Objective Data Objective Data Vital Signs: Vital Signs Temp Pulse Resp BP Pulse Ox 35.9 C L 72 26 H 172/95 H 92 05/01/21 11:56 05/01/21 13:15 05/01/21 13:15 05/01/21 11:56 05/01/21 13:15 Oxygen Flow Rate (L/min) 60 Oxygen Delivery Method Bi-pap Weight: 121 kg Body Mass Index (BMI) 35.6 Intake & Output: Intake and Output for Last 24 Hours 04/29/21 04/30/21 05/01/21 23:59 23:59 23:59 Intake Total 1308.27 / 1308.27 1457.57 / 1457.57 148.83 / 148.83 Output Total 1250 / 1250 1200 / 1200 Balance 58.27 / 58.27 257.57 / 257.57 148.83 / 148.83 Lab / Micro Data Result Diagrams: 05/01/21 05:40 05/01/21 05:40 Labs: Laboratory Results - last 24 hr 04/30/21 14:40: APTT 61.5 H 04/30/21 20:15: APTT 74.2 H 05/01/21 05:40: WBC 11.6 H, RBC 4.82, Hgb 13.5, Hct 41.2, MCV 85.5, MCH 28.0, MCHC 32.8, RDW Std Deviation 43.0, RDW Coeff of Martita 13.7, Plt Count 474 H, MPV 10.2, Neut % (Auto) Not Reportable, Absolute Neuts (auto) 10.2 H, Absolute Lymphs (auto) 0.35 L, Total Counted 100, Neutrophils % (Manual) 88 H, Lymphocytes % (Manual) 3 L, Monocytes % (Manual) 6, Metamyelocytes % 2 H, Promyelocytes % 1 H, Diff Path Review September, Platelet Estimate ADEQUATE, RBC Morphology NORM C+C 05/01/21 05:40: Sodium 134 L, Potassium 5.2 H, Chloride 101, Carbon Dioxide 23.0, Anion Gap 10, BUN 117 H*, Creatinine 5.66 H, Estim Creat Clear Calc 18.23, Est GFR (MDRD) Af Amer 14 L, Est GFR (MDRD) Non-Af 12 L, BUN/Creatinine Ratio 20.7 H, Glucose 105, Calcium 10.1, Total Bilirubin 0.50, AST 52 H, ALT 35, Alkaline Phosphatase 82, Total Protein 8.4 H, Albumin 2.0 L, Globulin 6.4 H, Albumin/Globulin Ratio 0.3 L 05/01/21 05:40: APTT 74.1 H 05/01/21 05:40: Phosphorus 7.2 H Micro: Microbiology 04/29/21 04:00 Urine, Clean Catch Legionella Antigen - Final 04/29/21 04:00 Urine, Clean Catch Streptococcus pneumoniae Antigen (M - Final 04/23/21 12:22 Nasal Secretion SARS-CoV-2 Antigen (Rapid) - Final SARS-CoV-2 (COVID 19) Physical Exam Const alert and no apparent distress Constitutional Narrative: up in chair on bipap. no respiratory distress. no conversational dyspnea. Resp normal respiratory effort and no retractions Resp Narrative: coarse BS. Cardio regular rate, regular rhythm, S1 normal heart sound and S2 normal heart sound GI normal to inspection, nondistended, normoactive bowel sounds, soft to palpation, non-tender and non-distended Assessment & Plan Assessment/Plan (1) BEST (acute kidney injury): (2) COVID-19: PLAN: 1. Acute kidney injury on CKD4 overall improved, though Cr up slightly from prior. 2/2 PCKD. Has actually been evaluated for xplant. Improving Non-oliguric US showed numerous bilateral simple renal cysts Dr. Varghese following Baseline creatinine 5.1 (reviewed [facility] records), has been evaluated for transplant in the past at [facility]. No additional IVF as may worsen deteriorating respiratory status 2. Acute hypoxic respiratory failure worse 2/2 COVID 19. Was on room air on admission HLIV strep and legionella antigens negative pt showing compliance with proning and using incentive spirometer. repeat furosemide. Did explain that pt could continue to worsen and may require intubation. 3.COVID-19 Patient initially was not hypoxic but did have a pulse ox of 93% He did receive 10 mg of IV dexamethasone. We will continue with 6 mg of dexamethasone for total of 9 more days. [facility] Patient is onset was the eighth. Patient will need to quarantine through the . Unvaccinated DW Dr. Chaudhry, no baricitinib given BEST 4. Morbid obesity BMI about 35.9 Complicates overall care and recovery 5. VTE prophylaxis with subcu heparin Charges/Coding Visit Charges Inpatient E&M: 39249 Subs Hosp L2
--- NOTE | 2021-05-01 14:00 | RAD_ITS ---
STUDY: X-RAY CHEST REASON FOR EXAM: Male, 45 years old. Worsening hypoxia with COVID TECHNIQUE: Single AP portable view of the chest. COMPARISON: Comparison is made with prior study dated 04/28/2021. FINDINGS: EKG electrodes are seen. Subcutaneous emphysema overlying the lower cervical region as well as the left chest. Since prior study, there has been improved aeration of both lungs more prominent on the left side. There now is evidence of a small right pneumothorax. There is also evidence of a pneumomediastinum and findings suggestive of a left medial pneumothorax. Normal size heart. Normal mediastinum and edson. Normal visualized pulmonary arteries. Normal visualized aortic arch and descending thoracic aorta. Normal visualized thoracic spine. Normal visualized ribs, clavicles, and shoulders. There is no demonstrated abnormality of the visualized soft tissue structures of the upper abdomen. RAD/Chest 1 View (Portable) IMPRESSION: Improved aeration as compared to prior study. New small right pneumothorax as well as medial left pneumothorax and pneumomediastinum. Septations emphysema of the cervical region and left thorax. The ordering physician was notified. Electronically Signed: Sam Bruner MD at 14:30 EST , Service support ,
[2021-05-01 14:04] LABS: Pathologist Review Reviewed
[2021-05-01] MEDS: Calcium Acetate 667 MG Capsule PO (14:25)
[2021-05-01] MEDS: Furosemide 40 MG/4 ML Vial IV (14:26)
[2021-05-01] MEDS: 0.9% Saline Lock 10 ML Syringe IV (14:27)
--- NOTE | 2021-05-01 14:38 | CT_ITS ---
STUDY: CT CHEST WITHOUT CONTRAST REASON FOR EXAM: Male, 45 years old. respiratory failure RADIATION DOSAGE (If Supplied By Facility): CTDIvol = ( 19.70 ) mGy, DLP = ( 762.94 ) mGycm TECHNIQUE: Transaxial imaging was performed without the administration of intravenous contrast material. Individualized dose optimization techniques were used for this CT. COMPARISON: Chest x-ray earlier today FINDINGS: Severe bilateral patchy ground glass opacities consistent with subsegmental atelectasis or pneumonitis. There is no demonstrated pleural abnormality. Normal heart and pericardium. Extensive pneumomediastinum possibly from barotrauma. Tiny apical left pneumothorax. Gas extends into the neck and left side of the chest including the left axilla. Normal mediastinum. Normal hilar regions. Normal unenhanced pulmonary arteries. Normal aorta arch and descending thoracic aorta. Normal osseous structures. Innumerable renal cysts consistent with autosomal dominant polycystic kidney disease. CT/Chest without Contrast IMPRESSION: 1. Severe bilateral subsegmental atelectasis or pneumonitis. Commonly reported imaging features of February 25 pneumonia are present. Other processes such as influenza pneumonia and organized pneumonia or drug toxicity and connective tissue disease can cause a similar imaging pattern. 2. Severe pneumomediastinum extending in the neck and left side of the chest with a tiny apical left pneumothorax. Electronically Signed: Sony Cohen MD at 15:49 EST Tel , Service support ,
--- NOTE | 2021-05-01 15:50 | NURSING ---
Back From CT and pt did not want to get back into chair. Up to chair all day thus far. Pt assisted onto Rt side while laying in bed. Will continue to monitor.
--- NOTE | 2021-05-01 16:00 | NURSING ---
this nurse spoke with Pts sister and informed her of pts depression and deteriorating condition and that someone should come to visit and possibly pt will be moved to ICU today. [place] pts sister is going to call pts daughter to come in and be with him.
--- NOTE | 2021-05-01 17:02 | RAD_ITS ---
INDICATION: OET placement, OG placement EXAMINATION/TECHNIQUE: X-RAY - XR Chest 1 View COMPARISON: Earlier same date at 1:48 PM, 05/01/2021 FINDINGS: LIFE-SUPPORT AND LINES: 1. Interval placement of a ET tube, projecting into the RIGHT mainstem bronchus. Retraction by approximately [address] the tip at the level of the aortic knob. 2. There is subcutaneous emphysema along the chest wall and extending into the neck, and pneumomediastinum is also noted. 3. There is a subtle RIGHT apical pneumothorax estimated at approximately 1.3 cm. There has been mild improvement in the interval. No mediastinal shift. 4. The previously reported LEFT apical pneumothorax is not clearly demonstrated due to overlap in position. 5. Interval placement of NG tube projecting below LEFT hemidiaphragm. HEART AND VESSELS: Cardiac silhouette is unchanged. No evidence congestive failure. LUNGS AND PLEURAL SPACES: Extensive bilateral interstitial and patchy alveolar infiltrate. There has been minimal worsening. No pulmonary mass is noted. MEDIASTINUM AND HILAR REGIONS: Pneumomediastinum is noted. No distinct mass is evident. BONY ELEMENTS: No acute bony changes noted. RAD/Chest 1 View (Portable) IMPRESSION: 1. ET tube placed in the interval projecting within the RIGHT mainstem bronchus. Retraction approximately [address] the tip at the level of the aortic knob. 2. NG tube extends below LEFT hemidiaphragm. 3. RIGHT apical pneumothorax with a mild improvement, currently estimated 1.3 cm. No mediastinal shift. The previously reported LEFT apical pneumothorax is not clearly demonstrated on current exam. 4. Persistent subcutaneous emphysema and pneumomediastinum. N.B. : The above Results were Read Back by Sony Aranda MD to Dagmar Morales RN, and understanding confirmed on 05/01/2021 20:06:21 (ET). Electronically Signed: Sony Aranda MD at 20:08 EST Tel , Service support ,
--- NOTE | 2021-05-01 17:05 | RAD_ITS ---
STUDY: X-RAY - ABDOMEN/PELVIS REASON FOR EXAM: Male, 45 years old. OG TUBE PLACEMENT TECHNIQUE: Single AP view of the abdomen / pelvis. COMPARISON: None. FINDINGS: Nasogastric tube with the tip in the right upper quadrant likely in the second portion the duodenum. There is an unremarkable bowel gas pattern. The visualized liver, spleen and kidneys are grossly normal in size and morphology. Normal soft tissue structures. Normal visualized osseous structures. RAD/Abdomen Single View (Portable) IMPRESSION: 1. Nasogastric tube with the tip in the right upper quadrant likely in the second portion of duodenum. 2. No bowel obstruction. Electronically Signed: Sony Cohen MD at 17:39 EST Tel , Service support ,
--- NOTE | 2021-05-01 17:41 | NURSING ---
165 etomidate 100 given, 1657 lauren 100 given, 9 prop and fent started per mar, pt intubated, size 8 26 at the lip, pulled back to 25 per RT Danna
[2021-05-01] MEDS: Propofol 10MG/Ml 1,000 MG/100 ML Bottle 7.3 MG CONT INF (17:55)
--- NOTE | 2021-05-01 17:56 | PCM.OP.PRO ---
Assessment & Plan Assessment/Plan (1) Acute respiratory failure with hypoxia: Procedure Report Date of Procedure: 05/01/21 Procedure: Endotracheal intubation Indication: Respiratory failure, COVID-19 pneumonia, pneumomediastinum and pneumothorax Description: Patient was informed of the urgency as his respiratory status has continued decline where the patient is on a percent FiO2 and with a pulse ox in the 86% range. CAT scan showing imaging of pneumomediastinum as well as a small left apical pneumothorax. Given impending respiratory failure and arrest decision was made to intubate the patient while he was hemodynamically stable. Patient met with his daughter beforehand and then afterwards patient was treated with 20 mg of etomidate as well as 100 mg of rocuronium. Patient was bagged and then using a glide scope, patient was intubated with a 8 endotracheal tube. The tube was seen going through the vocal cords with ease. It was initially 26 at the lips. There was good color change with capnography her and a bilateral breath sounds were auscultated. Follow-up chest x-ray showed that the endotracheal tube as it with that the tip at the ant and so was withdrawn 2 cm. Procedures Hospitalists Procedures: [id number] Insert Emergency Airway
[2021-05-01 19:30] LABS: CPK Total, Creatine Kinase 166 U/L (39-308); Triglycerides 384 mg/dL
[2021-05-01] MEDS: Propofol 10MG/Ml 1,000 MG/100 ML Bottle 14.5 MG CONT INF (19:30)
[2021-05-01 19:46] LABS: Allen Test Positive; Base Excess -6 mmol/L (-2 to +2); Bicarbonate 20.5 mmol/L (22-26); Blood Gas Specimen Type ART; FI02 100; Mode AC; O2 Delivery Device Adult Vent; PEEP 12; PO2 53 mmHG (75-100); RR 14; SITE L Radial; SO2 83 % (95-99); Total Carbon Dioxide 22 mmol/L; Vt 450; pCO2 43.7 mmHg (35-45); pH 7.28 (7.35-7.45)
--- NOTE | 2021-05-01 20:00 | RAD_ITS ---
EXAM: XR CHEST, 1 VIEW CLINICAL INDICATION: low oxygen saturation TECHNIQUE: Frontal view of the chest. This report was created using [employer] report generation technology. COMPARISON: 05/01/2021 FINDINGS: See Impression. RAD/Chest 1 View (Portable) IMPRESSION: 1. Interval retraction of endotracheal tube. Tip is now located 2.7 cm above the ant. 2. Transaxial catheter is unchanged with tip off the examination. 3. Unchanged appearance of bilateral multilobar airspace disease. 4. Unchanged biapical pneumothoraces, subcutaneous emphysema, and pneumomediastinum. Electronically Signed: Isacc Taylor MD at 21:31 EST Tel , Service support ,
[2021-05-01] MEDS: Chlorhexidine 15 ML PO (21:41)
[2021-05-02] VITALS (40 sets, daily range): BP systolic 78–126; BP diastolic 56–97; PULSE 54–73; RESP 14–17; TEMP 35.3–36.9; O2SAT 17–100
[2021-05-02] MEDS: Propofol 10MG/Ml 1,000 MG/100 ML Bottle 18.2 MG CONT INF ×4 (01:05→17:56)
[2021-05-02 04:32] LABS: Absolute Lymphocyte Count 0.34 X10^3/uL (0.83-4.51); Absolute Neutrophil Count 13.4 X10^3/uL (2.0-7.7); Basophil# 0.05 X10^3/uL; Basophil% 0.3 % (0-1); Hemoglobin 11.5 g/dL (13.0-16.5); Lymphocyte # 0.34 X10^3/ul (0.83-4.51); Lymphocyte % 2.2 % (19-41); Mean Corp Hgb Conc 31.1 g/dL (32-36); Mean Corpuscular Hgb 27.8 pg (27.0-32.0); Mean Corpuscular Volume 89.6 fL (80-94); Mean Platelet Vol. 10.2 fl (6.2-12.0); Monocyte# 1.12 X10^3/uL; Monocyte% 7.2 % (0-10); NRBC Flagged by Analyzer 0 % (0-5); Neutrophil % 86.1 % (47-70); POSITIVE DIFFERENTIAL YES; Platelet Count 408 K/mm3 (150-450); RBC Distribution Width CV 13.9 % (11.6-14.6); RBC Distribution Width SD 45.6 fl (35.1-43.9); Red Blood Count 4.13 M/mm3 (4.6-6.2); White Blood Count 15.6 K/mm3 (4.4-11.0)
[2021-05-02 04:40] LABS: Differential Indicated SCAN CRITERIA MET
[2021-05-02 04:46] LABS: Partial Thromboplast Time 121.1 Seconds (24.1-36.2)
[2021-05-02 05:09] LABS: ALB/GLOB Ratio 0.4 RATIO (0.9-2.4); AST(SGOT) 39 U/L (15-37); Alanine Aminotransfer ALT/SGPT 34 U/L (16-61); Albumin, Serum 1.9 g/dL (3.2-5.0); Alkaline Phosphatase 73 U/L (45-117); Anion Gap 13 (5-15); BUN 133 mg/dL (7-18); BUN/Creat Ratio 21.3 RATIO (10-20); Calcium,Total 9.4 mg/dL (8.5-10.1); Chloride 98 mmol/L (98-107); Creatinine, Serum 6.23 mg/dL (0.70-1.30); EST Glomerular Filtration Rate 10 mL/min (>60); Est Glom Filt Rate - Afr Amer 12 mL/min (>60); Estimated Creatinine Clearance 16.57 ml/min; Globulin 5.3 g/dL (2.2-4.2); Glucose 129 mg/dL (74-106); Potassium 6.1 mmol/L (3.5-5.1); Protein, Total 7.2 g/dL (6.4-8.2); Sodium Level 134 mmol/L (136-145)
[2021-05-02 05:26] LABS: Differential Comment SCANNED
[2021-05-02 06:00] LABS: Allen Test Positive; Base Excess -8 mmol/L (-2 to +2); Bicarbonate 20.9 mmol/L (22-26); Blood Gas Specimen Type ART; FI02 85; Mode AC; O2 Delivery Device Adult Vent; PEEP 14; PO2 67 mmHG (75-100); RR 14; SITE L Radial; SO2 86 % (95-99); Total Carbon Dioxide 23 mmol/L; Vt 450; pCO2 60.3 mmHg (35-45); pH 7.15 (7.35-7.45)
[2021-05-02] MEDS: Ipratropium/Albuterol Sulfate 3 ML AMPUL.NEB INHALATION ×3 (07:01→19:25)
[2021-05-02 08:16] LABS: Allen Test Positive; Base Excess -7 mmol/L (-2 to +2); Bicarbonate 21.1 mmol/L (22-26); Blood Gas Specimen Type ART; FI02 80; Mode AC; O2 Delivery Device Adult Vent; PEEP 14; PO2 58 mmHG (75-100); RR 17; SITE R Radial; SO2 82 % (95-99); Total Carbon Dioxide 23 mmol/L; Vt 450; pCO2 56.3 mmHg (35-45); pH 7.18 (7.35-7.45)
--- NOTE | 2021-05-02 08:55 | CPS ---
CRITICAL BLOOD GAS RESULTS GIVEN TO DR BARR AT 0855. DELAY IN REPORTING CRITICAL RESULTS DUE TO CODE BLUE.
[2021-05-02] MEDS: Chlorhexidine 15 ML PO ×2 (09:26→21:35)
--- NOTE | 2021-05-02 09:33 | PCM.PN.INT ---
Assessment & Plan Assessment/Plan (1) Acute respiratory failure with hypoxia: (2) COVID-19: (3) CKD (chronic kidney disease), stage IV: (4) Hyperphosphatemia: (5) History of polycystic kidney disease: PLAN: RECOMMENDATIONS: 1. Continue Decadron as ordered. No Remdesivir or baricitinib secondary to renal function 2. Agree with heparin drip 3. Continue paralytic therapy for now 4. Chest x-ray with any hemodynamic decompensation for possible chest tube 5. Continue bronchodilators 6. Wean oxygen as tolerated 7. Increase minute ventilation as guided by ABG IMPRESSIONS: 1. Acute hypoxic respiratory failure secondary to COVID-19 Very difficult situation. Therapeutic interventions are limited given renal function and patient has progressed despite Decadron therapy. Patient does report he is used inhalers in the past, so mild intermittent asthma could be a complication. Will attempt using bronchodilators for recruitment. We will also obtain a sputum culture and a chest x-ray to look for secondary pulmonary issues that may be a target for intervention. Patient subsequently developed a pneumomediastinum with small pneumothoraces. Patient has been stable following intubation, but requiring paralytics. Anticipate paralytics for at least 48 hours. Will attempt to minimize pressures and accept higher FiO2. ABG show significant acidosis. Continue to increase minute ventilation. 2. Polycystic kidney/chronic kidney disease stage IV/obesity/nonvaccinated status/depression Complicates care, management, recovery and prognosis. Okay to continue with baseline medications from my perspective TIME: 32 minutes critical care time spent addressing patient's acute hypoxic respiratory failure, COVID-19, chronic kidney disease, review of all data and collaboration with care team Subjective Subjective Overnight events were noted. Chest x-rays have shown stability of pneumothorax despite positive pressure. Patient with very poor synchrony overnight and was initiated on paralysis. This did lead to significant improvement in saturations. Patient does have a bis monitor in place. Nursing does not report advancement of crepitus in the neck. Objective Data Objective Data Vital Signs: Vital Signs Temp Pulse Resp BP Pulse Ox 35.4 C L 60 17 106/78 93 05/02/21 07:00 05/02/21 07:05 05/02/21 07:05 05/02/21 07:00 05/02/21 07:01 Oxygen Flow Rate (L/min) 60 Oxygen Delivery Method Mechanical Ventilator Weight: 115 kg Body Mass Index (BMI) 35.6 Intake & Output: Intake and Output for Last 24 Hours 04/30/21 05/01/21 05/02/21 23:59 23:59 23:59 Intake Total 1457.57 / 1457.57 482.98 / 545.88 660.39 / 660.39 Output Total 1200 / 1200 750 / 750 650 / 650 Balance 257.57 / 257.57 -267.02 / -204.12 10.39 / 10.39 Lab / Micro Data Result Diagrams: 05/02/21 04:20 05/02/21 04:20 Labs: Laboratory Results - last 24 hr 05/01/21 05:40: Diff Path Review Reviewed 05/01/21 05:40: Phosphorus 7.2 H 05/01/21 18:55: Total Creatine Kinase 166, Triglycerides 384 H 05/02/21 04:20: WBC 15.6 H, RBC 4.13 L, Hgb 11.5 L, Hct 37.0 L, MCV 89.6, MCH 27.8, MCHC 31.1 L D, RDW Std Deviation 45.6 H, RDW Coeff of Martita 13.9, Plt Count 408, MPV 10.2, Immature Gran % (Auto) 4.200 H, Neut % (Auto) 86.1 H, Lymph % (Auto) 2.2 L, [place] % (Auto) 7.2, Eos % (Auto) 0.0, Baso % (Auto) 0.3, Absolute Neuts (auto) 13.4 H, Absolute Lymphs (auto) 0.34 L, Nucleated RBC % 0, Differential Comment SCANNED 05/02/21 04:20: Sodium 134 L, Potassium 6.1 H*, Chloride 98, Carbon Dioxide 23.0, Anion Gap 13, BUN 133 H*, Creatinine 6.23 H, Estim Creat Clear Calc 16.57, Est GFR (MDRD) Af Amer 12 L, Est GFR (MDRD) Non-Af 10 L, BUN/Creatinine Ratio 21.3 H, Glucose 129 H, Calcium 9.4, Total Bilirubin 0.40, AST 39 H, ALT 34, Alkaline Phosphatase 73, Total Protein 7.2, Albumin 1.9 L, Globulin 5.3 H, Albumin/Globulin Ratio 0.4 L 05/02/21 04:20: APTT 121.1 H* Micro: Microbiology 05/01/21 16:57 Sputum, Induced/Lukens Respiratory Culture - Preliminary Culture exhibits no growth. 04/29/21 04:00 Urine, Clean Catch Legionella Antigen - Final 04/29/21 04:00 Urine, Clean Catch Streptococcus pneumoniae Antigen (M - Final 04/23/21 12:22 Nasal Secretion SARS-CoV-2 Antigen (Rapid) - Final SARS-CoV-2 (COVID 19) ABG Data ABG results: ABG 05/01/21 05/02/21 05/02/21 19:38 05:52 08:09 Specimen Type ART ART ART Sample Site L Radial L Radial R Radial pH 7.28 L 7.15 L* 7.18 L* Bicarbonate Actual 20.5 L 20.9 L 21.1 L Total CO2 22 23 23 Base Excess -6 L -8 L -7 L O2 Saturation 83 L 86 L 82 L O2 % 100 85 80 ABG pCO2 43.7 60.3 H 56.3 H ABG pO2 53 L 67 L 58 L Armen Test Positive Positive Positive Respiration Rate 14 14 17 O2 Delivery Device Adult Vent Adult Vent Adult Vent Vent Mode AC AC AC Tidal Volume 450 450 450 POC PEEP 12 14 14 Crit Call To/Read Back Yes Yes Blood Gas Notified Whom Dr. Dobbs Radiography Diagnostic Testing: Radiology Impression Chest X-Ray 05/01/21 14:00 IMPRESSION: Improved aeration as compared to prior study. New small right pneumothorax as well as medial left pneumothorax and pneumomediastinum. Septations emphysema of the cervical region and left thorax. The ordering physician was notified. Electronically Signed: Sam Bruner MD at 14:30 EST , Service support , Chest CT 05/01/21 14:38 IMPRESSION: 1. Severe bilateral subsegmental atelectasis or pneumonitis. Commonly reported imaging features of February 25 pneumonia are present. Other processes such as influenza pneumonia and organized pneumonia or drug toxicity and connective tissue disease can cause a similar imaging pattern. 2. Severe pneumomediastinum extending in the neck and left side of the chest with a tiny apical left pneumothorax. Electronically Signed: Sony Cohen MD at 15:49 EST Tel , Service support , Chest X-Ray 05/01/21 17:02 IMPRESSION: 1. ET tube placed in the interval projecting within the RIGHT mainstem bronchus. Retraction approximately [address] the tip at the level of the aortic knob. 2. NG tube extends below LEFT hemidiaphragm. 3. RIGHT apical pneumothorax with a mild improvement, currently estimated 1.3 cm. No mediastinal shift. The previously reported LEFT apical pneumothorax is not clearly demonstrated on current exam. 4. Persistent subcutaneous emphysema and pneumomediastinum. N.B. : The above Results were Read Back by Sony Aranda MD to Dagmar Morales RN, and understanding confirmed on 05/01/2021 20:06:21 (ET). Electronically Signed: Sony Aranda MD at 20:08 EST Tel , Service support , ADDENDUM: 05/01/21 2015 IMPRESSION: 1. ET tube placed in the interval projecting within the RIGHT mainstem bronchus. Retraction approximately [address] the tip at the level of the aortic knob. 2. NG tube extends below LEFT hemidiaphragm. 3. RIGHT apical pneumothorax with a mild improvement, currently estimated 1.3 cm. No mediastinal shift. The previously reported LEFT apical pneumothorax is not clearly demonstrated on current exam. 4. Persistent subcutaneous emphysema and pneumomediastinum. N.B. : The above Results were Read Back by Sony Aranda MD to Dagmar Morales RN, and understanding confirmed on 05/01/2021 20:06:21 (ET). Electronically Signed: Sony Aranda MD at 20:08 EST Tel , Service support , KUB X-Ray 05/01/21 17:05 IMPRESSION: 1. Nasogastric tube with the tip in the right upper quadrant likely in the second portion of duodenum. 2. No bowel obstruction. Electronically Signed: Sony Cohen MD at 17:39 EST Tel , Service support , Chest X-Ray 05/01/21 20:00 IMPRESSION: 1. Interval retraction of endotracheal tube. Tip is now located 2.7 cm above the ant. 2. Transaxial catheter is unchanged with tip off the examination. 3. Unchanged appearance of bilateral multilobar airspace disease. 4. Unchanged biapical pneumothoraces, subcutaneous emphysema, and pneumomediastinum. Electronically Signed: Isacc Taylor MD at 21:31 EST Tel , Service support , Physical Exam Const alert and oriented x3 Constitutional Narrative: Paralyzed with BIS monitor in the 40s General Appearance: cooperative, intubated and patient mechanically ventilated Orientation / Consciousness: awake and oriented to person Nutritional Appearance: obese HEENT normocephalic Eyes no scleral icterus Neck full ROM Lymph Lymphatic: no lymphadenopathy noted Chest inspection of chest normal Chest: symmetrical chest wall rise and crepitus sternum and other (Right greater than left neck) Resp Effort and Inspection: symmetric chest movement Auscultation: rhonchi and diminished lung sounds; Negative for rales or wheezes Cardio regular rate GI normal to inspection, nondistended, normoactive bowel sounds GI Narrative: obese Groin / Perineum Exam: Negative for edema Extremity no clubbing, cyanosis or edema Skin Trauma: other multiple tattoos on chest, arms Neuro Coordination: other (restless legs) Psych Psych Narrative: Paralyzed Charges/Coding Procedures Hospitalists Procedures: [id number] Critial Care 1st Hr
--- NOTE | 2021-05-02 10:29 | PCM.PN.REN ---
Subjective Subjective events of last night noted. intubated, sedate. Potassium elevated with rising BUN and creatinine Objective Data Objective Data Vital Signs: Vital Signs Temp Pulse Resp BP Pulse Ox 95.7 F L 60 17 106/78 93 05/02/21 07:00 05/02/21 07:05 05/02/21 07:05 05/02/21 07:00 05/02/21 07:01 Oxygen Flow Rate (L/min) 60 Oxygen Delivery Method Mechanical Ventilator Weight: 115 kg Body Mass Index (BMI) 35.6 Intake & Output: Intake and Output for Last 24 Hours 04/30/21 05/01/21 05/02/21 23:59 23:59 23:59 Intake Total 1457.57 / 1457.57 482.98 / 545.88 660.39 / 660.39 Output Total 1200 / 1200 750 / 750 650 / 650 Balance 257.57 / 257.57 -267.02 / -204.12 10.39 / 10.39 Lab / Micro Data Result Diagrams: 05/04/21 03:50 05/04/21 03:50 Labs: Laboratory Results - last 24 hr 05/01/21 05:40: Diff Path Review Reviewed 05/01/21 18:55: Total Creatine Kinase 166, Triglycerides 384 H 05/02/21 04:20: WBC 15.6 H, RBC 4.13 L, Hgb 11.5 L, Hct 37.0 L, MCV 89.6, MCH 27.8, MCHC 31.1 L D, RDW Std Deviation 45.6 H, RDW Coeff of Martita 13.9, Plt Count 408, MPV 10.2, Immature Gran % (Auto) 4.200 H, Neut % (Auto) 86.1 H, Lymph % (Auto) 2.2 L, Real % (Auto) 7.2, Eos % (Auto) 0.0, Baso % (Auto) 0.3, Absolute Neuts (auto) 13.4 H, Absolute Lymphs (auto) 0.34 L, Nucleated RBC % 0, Differential Comment SCANNED 05/02/21 04:20: Sodium 134 L, Potassium 6.1 H*, Chloride 98, Carbon Dioxide 23.0, Anion Gap 13, BUN 133 H*, Creatinine 6.23 H, Estim Creat Clear Calc 16.57, Est GFR (MDRD) Af Amer 12 L, Est GFR (MDRD) Non-Af 10 L, BUN/Creatinine Ratio 21.3 H, Glucose 129 H, Calcium 9.4, Total Bilirubin 0.40, AST 39 H, ALT 34, Alkaline Phosphatase 73, Total Protein 7.2, Albumin 1.9 L, Globulin 5.3 H, Albumin/Globulin Ratio 0.4 L 05/02/21 04:20: APTT 121.1 H* Micro: Microbiology 05/01/21 16:57 Sputum, Induced/Lukens Respiratory Culture - Preliminary Culture exhibits no growth. 04/29/21 04:00 Urine, Clean Catch Legionella Antigen - Final 04/29/21 04:00 Urine, Clean Catch Streptococcus pneumoniae Antigen (M - Final 04/23/21 12:22 Nasal Secretion SARS-CoV-2 Antigen (Rapid) - Final SARS-CoV-2 (COVID 19) ABG Data ABG results: ABG 05/01/21 05/02/21 05/02/21 19:38 05:52 08:09 Specimen Type ART ART ART Sample Site L Radial L Radial R Radial pH 7.28 L 7.15 L* 7.18 L* Bicarbonate Actual 20.5 L 20.9 L 21.1 L Total CO2 22 23 23 Base Excess -6 L -8 L -7 L O2 Saturation 83 L 86 L 82 L O2 % 100 85 80 ABG pCO2 43.7 60.3 H 56.3 H ABG pO2 53 L 67 L 58 L Armen Test Positive Positive Positive Respiration Rate 14 14 17 O2 Delivery Device Adult Vent Adult Vent Adult Vent Vent Mode AC AC AC Tidal Volume 450 450 450 POC PEEP 12 14 14 Crit Call To/Read Back Yes Yes Blood Gas Notified Whom Dr. Dobbs Radiography Diagnostic Testing: Radiology Impression Chest X-Ray 05/01/21 14:00 IMPRESSION: Improved aeration as compared to prior study. New small right pneumothorax as well as medial left pneumothorax and pneumomediastinum. Septations emphysema of the cervical region and left thorax. The ordering physician was notified. Electronically Signed: Sam Bruner MD at 14:30 EST , Service support , Chest CT 05/01/21 14:38 IMPRESSION: 1. Severe bilateral subsegmental atelectasis or pneumonitis. Commonly reported imaging features of February 25 pneumonia are present. Other processes such as influenza pneumonia and organized pneumonia or drug toxicity and connective tissue disease can cause a similar imaging pattern. 2. Severe pneumomediastinum extending in the neck and left side of the chest with a tiny apical left pneumothorax. Electronically Signed: Sony Cohen MD at 15:49 EST Tel , Service support , Chest X-Ray 05/01/21 17:02 IMPRESSION: 1. ET tube placed in the interval projecting within the RIGHT mainstem bronchus. Retraction approximately [address] the tip at the level of the aortic knob. 2. NG tube extends below LEFT hemidiaphragm. 3. RIGHT apical pneumothorax with a mild improvement, currently estimated 1.3 cm. No mediastinal shift. The previously reported LEFT apical pneumothorax is not clearly demonstrated on current exam. 4. Persistent subcutaneous emphysema and pneumomediastinum. N.B. : The above Results were Read Back by Sony Aranda MD to Dagmar Morales RN, and understanding confirmed on 05/01/2021 20:06:21 (ET). Electronically Signed: Sony Aranda MD at 20:08 EST Tel , Service support , ADDENDUM: 05/01/212014 IMPRESSION: 1. ET tube placed in the interval projecting within the RIGHT mainstem bronchus. Retraction approximately [address] the tip at the level of the aortic knob. 2. NG tube extends below LEFT hemidiaphragm. 3. RIGHT apical pneumothorax with a mild improvement, currently estimated 1.3 cm. No mediastinal shift. The previously reported LEFT apical pneumothorax is not clearly demonstrated on current exam. 4. Persistent subcutaneous emphysema and pneumomediastinum. N.B. : The above Results were Read Back by Sony Aranda MD to Dagmar Morales RN, and understanding confirmed on 05/01/2021 20:06:21 (ET). Electronically Signed: Sony Aranda MD at 20:08 EST Tel , Service support , KUB X-Ray 05/01/21 17:05 IMPRESSION: 1. Nasogastric tube with the tip in the right upper quadrant likely in the second portion of duodenum. 2. No bowel obstruction. Electronically Signed: Sony Cohen MD at 17:39 EST Tel , Service support , Chest X-Ray 05/01/21 20:00 IMPRESSION: 1. Interval retraction of endotracheal tube. Tip is now located 2.7 cm above the ant. 2. Transaxial catheter is unchanged with tip off the examination. 3. Unchanged appearance of bilateral multilobar airspace disease. 4. Unchanged biapical pneumothoraces, subcutaneous emphysema, and pneumomediastinum. Electronically Signed: Isacc Taylor MD at 21:31 EST Tel , Service support , Physical Exam Const General Appearance: patient mechanically ventilated Cardio regular rate GI non-tender and non-distended Palpation: soft Extremity no clubbing, cyanosis or edema Skin Skin Narrative: multiple tattoos Assessment & Plan Assessment/Plan (1) BEST (acute kidney injury): PLAN: acute on CKD Stage 4 due to COVID infection. Azotemia worse with hyperkalemia, intubated, sedate. Will likely need dialysis if family agrees for management of high potassium and worsening renal fxn, respiratory/metabolic acidosis. Hypotensive on sedatives. Agree with discontinuation of antihypertensive meds. DW hospitalist and [facility]. Notified pt sister Rj about dialysis and potential risks including but not limited to hypotension, ME, stroke, infection, bleeding. She agreed to proceed. Verbal consent obtained over telephone. Will consult GS for temp dialysis catheter placement. Hold heparin drip. (2) Acute respiratory failure with hypoxia: PLAN: due to COVID on vent, (3) CKD (chronic kidney disease), stage IV: PLAN: due to PCKD with large kidneys bilat RK 20cm, LK 21cm on US. 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 Evaluated for kidney tx at [facility]. (4) History of polycystic kidney disease: PLAN: as above (5) COVID-19: PLAN: unvaccinated, continued hypoxia with worsening infiltrates on CXR, intubated, s/p decadron therapy (6) Hyperkalemia: PLAN: due to renal failure, high catabolic rate (7) Hyperphosphatemia: PLAN: add binders with meals
[2021-05-02 11:20] LABS: Allen Test Positive; Base Excess -7 mmol/L (-2 to +2); Bicarbonate 20.3 mmol/L (22-26); Blood Gas Specimen Type ART; FI02 80; Mode AC; O2 Delivery Device Adult Vent; PEEP 14; PO2 62 mmHG (75-100); RR 17; SITE R Radial; SO2 87 % (95-99); Total Carbon Dioxide 22 mmol/L; Vt 500; pCO2 47.7 mmHg (35-45); pH 7.24 (7.35-7.45)
--- NOTE | 2021-05-02 12:55 | PN.HOSP_ITS ---
Subjective Subjective Required paralytics given vent dyssynchrony. Objective Data Objective Data Vital Signs: Vital Signs Temp Pulse Resp BP Pulse Ox 35.8 C L 60 17 87/63 L 94 05/02/21 12:00 05/02/21 12:00 05/02/21 12:00 05/02/21 12:00 05/02/21 12:00 Oxygen Flow Rate (L/min) 60 Oxygen Delivery Method Mechanical Ventilator Weight: 115 kg Body Mass Index (BMI) 35.6 Intake & Output: Intake and Output for Last 24 Hours 04/30/21 05/01/21 05/02/21 23:59 23:59 23:59 Intake Total 1457.57 / 1457.57 482.98 / 545.88 1110.14 / 1110.14 Output Total 1200 / 1200 750 / 750 900 / 900 Balance 257.57 / 257.57 -267.02 / -204.12 210.14 / 210.14 Lab / Micro Data Result Diagrams: 05/02/21 04:20 05/02/21 04:20 Labs: Laboratory Results - last 24 hr 05/01/21 05:40: Diff Path Review Reviewed 05/01/21 18:55: Total Creatine Kinase 166, Triglycerides 384 H 05/02/21 04:20: WBC 15.6 H, RBC 4.13 L, Hgb 11.5 L, Hct 37.0 L, MCV 89.6, MCH 27.8, MCHC 31.1 L D, RDW Std Deviation 45.6 H, RDW Coeff of Martita 13.9, Plt Count 408, MPV 10.2, Immature Gran % (Auto) 4.200 H, Neut % (Auto) 86.1 H, Lymph % (Auto) 2.2 L, [place] % (Auto) 7.2, Eos % (Auto) 0.0, Baso % (Auto) 0.3, Absolute Neuts (auto) 13.4 H, Absolute Lymphs (auto) 0.34 L, Nucleated RBC % 0, Differential Comment SCANNED 05/02/21 04:20: Sodium 134 L, Potassium 6.1 H*, Chloride 98, Carbon Dioxide 2 3.0, Anion Gap 13, BUN 133 H*, Creatinine 6.23 H, Estim Creat Clear Calc 16.57, Est GFR (MDRD) Af Amer 12 L, Est GFR (MDRD) Non-Af 10 L, BUN/Creatinine Ratio 21.3 H, Glucose 129 H, Calcium 9.4, Total Bilirubin 0.40, AST 39 H, ALT 34, Alkaline Phosphatase 73, Total Protein 7.2, Albumin 1.9 L, Globulin 5.3 H, Albumin/Globulin Ratio 0.4 L 05/02/21 04:20: APTT 121.1 H* Micro: Microbiology 05/01/21 16:57 Sputum, Induced/Lukens Gram Stain - Final 05/01/21 16:57 Sputum, Induced/Lukens Respiratory Culture - Preliminary Culture exhibits no growth. 04/29/21 04:00 Urine, Clean Catch Legionella Antigen - Final 04/29/21 04:00 Urine, Clean Catch Streptococcus pneumoniae Antigen (M - Final 04/23/21 12:22 Nasal Secretion SARS-CoV-2 Antigen (Rapid) - Final SARS-CoV-2 (COVID 19) ABG Data ABG results: ABG 05/01/21 05/02/21 05/02/21 19:38 05:52 08:09 Specimen Type ART ART ART Sample Site L Radial L Radial R Radial pH 7.28 L 7.15 L* 7.18 L* Bicarbonate Actual 20.5 L 20.9 L 21.1 L Total CO2 22 23 23 Base Excess -6 L -8 L -7 L O2 Saturation 83 L 86 L 82 L O2 % 100 85 80 ABG pCO2 43.7 60.3 H 56.3 H ABG pO2 53 L 67 L 58 L Armen Test Positive Positive Positive Respiration Rate 14 14 17 O2 Delivery Device Adult Vent Adult Vent Adult Vent Vent Mode AC AC AC Tidal Volume 450 450 450 POC PEEP 12 14 14 Crit Call To/Read Back Yes Yes Blood Gas Notified Whom Dr. Dobbs 05/02/21 11:15 Specimen Type ART Sample Site R Radial pH 7.24 L Bicarbonate Actual 20.3 L Total CO2 22 Base Excess -7 L O2 Saturation 87 L O2 % 80 ABG pCO2 47.7 H ABG pO2 62 L Armen Test Positive Respiration Rate 17 O2 Delivery Device Adult Vent Vent Mode AC Tidal Volume 500 POC PEEP 14 Crit Call To/Read Back Blood Gas Notified Whom Radiography Diagnostic Testing: Radiology Impression Chest X-Ray 05/01/21 14:00 IMPRESSION: Improved aeration as compared to prior study. New small right pneumothorax as well as medial left pneumothorax and pneumomediastinum. Septations emphysema of the cervical region and left thorax. The ordering physician was notified. Electronically Signed: Sam Bruner MD at 14:30 EST , Service support , Chest CT 05/01/21 14:38 IMPRESSION: 1. Severe bilateral subsegmental atelectasis or pneumonitis. Commonly reported imaging features of February 25 pneumonia are present. Other processes such as influenza pneumonia and organized pneumonia or drug toxicity and connective tissue disease can cause a similar imaging pattern. 2. Severe pneumomediastinum extending in the neck and left side of the chest with a tiny apical left pneumothorax. Electronically Signed: Sony Cohen MD at 15:49 EST Tel , Service support , Chest X-Ray 05/01/21 17:02 IMPRESSION: 1. ET tube placed in the interval projecting within the RIGHT mainstem bronchus. Retraction approximately [address] the tip at the level of the aortic knob. 2. NG tube extends below LEFT hemidiaphragm. 3. RIGHT apical pneumothorax with a mild improvement, currently estimated 1.3 cm. No mediastinal shift. The previously reported LEFT apical pneumothorax is not clearly demonstrated on current exam. 4. Persistent subcutaneous emphysema and pneumomediastinum. N.B. : The above Results were Read Back by Sony Aranda MD to Dagmar Morales RN, and understanding confirmed on 05/01/2021 20:06:21 (ET). Electronically Signed: Sony Aranda MD at 20:08 EST Tel , Service support , ADDENDUM: 05/01/212014 IMPRESSION: 1. ET tube placed in the interval projecting within the RIGHT mainstem bronchus. Retraction approximately [address] the tip at the level of the aortic knob. 2. NG tube extends below LEFT hemidiaphragm. 3. RIGHT apical pneumothorax with a mild improvement, currently estimated 1.3 cm. No mediastinal shift. The previously reported LEFT apical pneumothorax is not clearly demonstrated on current exam. 4. Persistent subcutaneous emphysema and pneumomediastinum. N.B. : The above Results were Read Back by Sony Aranda MD to Dagmar Morales RN, and understanding confirmed on 05/01/2021 20:06:21 (ET). Electronically Signed: Sony Aranda MD at 20:08 EST Tel , Service support , KUB X-Ray 05/01/21 17:05 IMPRESSION: 1. Nasogastric tube with the tip in the right upper quadrant likely in the second portion of duodenum. 2. No bowel obstruction. Electronically Signed: Sony Cohen MD at 17:39 EST Tel , Service support , Chest X-Ray 05/01/21 20:00 IMPRESSION: 1. Interval retraction of endotracheal tube. Tip is now located 2.7 cm above the ant. 2. Transaxial catheter is unchanged with tip off the examination. 3. Unchanged appearance of bilateral multilobar airspace disease. 4. Unchanged biapical pneumothoraces, subcutaneous emphysema, and pneumomediastinum. Electronically Signed: Isacc Taylor MD at 21:31 EST Tel , Service support , Physical Exam Const Constitutional Narrative: intubated, sedated Resp normal respiratory effort, no retractions, no use of accessory muscles and clear to auscultation bilaterally Cardio regular rate, regular rhythm, S1 normal heart sound and S2 normal heart sound GI normal to inspection, nondistended, normoactive bowel sounds, soft to palpation, non-tender and non-distended Assessment & Plan Assessment/Plan (1) Acute respiratory failure with hypoxia: (2) BEST (acute kidney injury): (3) COVID-19: PLAN: 1. Acute kidney injury on CKD4 worse, now with hyperkalemia DW nephrology, will need HD 2/2 PCKD. Has actually been evaluated for xplant. Improving Non-oliguric US showed numerous bilateral simple renal cysts Dr. Varghese following Baseline creatinine 5.1 (reviewed [facility] records), has been evaluated for transplant in the past at [facility]. No additional IVF as may worsen deteriorating respiratory status 2. Acute hypoxic respiratory failure worse 2/2 COVID 19, pnuemomediastium and PTX 2/2 COVID 19. Was on room air on admission HLIV strep and legionella antigens negative 04/29: anticoagulated w hep gtt 05/01: Intubated 05/02: initiated on cisatracurium, FiO2 85% 3. Pneumomediastium and pneumothorax 05/01: identified (not present on 04/28) 05/02: unchanged from CXR on 05/01 4. COVID-19 Patient initially was not hypoxic but did have a pulse ox of 93% He did receive 10 mg of IV dexamethasone. We will continue with 6 mg of dexamethasone for total of 9 more days. Patient not a candidate for [facility] acute kidney injury Patient is onset was the eighth. Patient will need to quarantine through the . Unvaccinated DW Dr. Chaudhry, no baricitinib given BEST 5. Morbid obesity BMI about 35.9 Complicates overall care and recovery 6. VTE prophylaxis anticoagulated Charges/Coding Visit Charges Inpatient E&M: 71859 Subs Hosp L2
--- NOTE | 2021-05-02 13:51 | CON.PCM.SX_ITS ---
Assessment & Plan Assessment/Plan (1) CKD (chronic kidney disease), stage IV: PLAN: The patient has acute on chronic kidney disease and requires dialysis access. I was consulted for dialysis catheter. The patient also has a large pneumo mediastinum and small pneumothorax bilaterally. At this time the pneumothoraces are small but he may require chest tubes. I discussed ultrasound-guided dialysis catheter placement with the patient's daughter and sister and obtain signed consent on his behalf. I did place an ul trasound-guided right IJ dialysis catheter at the bedside. Chest x-ray is being obtained. I will resume his heparin in 1 hour. Lenny Conrad MD Pager: [facility] [address] [place] [address], [address] [place] [address] Office: HPI Consult Data Date of Consult: 05/02/21 HPI Narrative HPI Narrative: KULWINDER JEAN, is a 45 M who presents with Covid. The patient is intubated and sedated and requires dialysis access. [facility] Medical History Asthma Depression Hypertension Hypothyroidism Migraines Polycystic kidney disease Home Medications atenolol 50 mg PO DAILY 04/08/13 [History Last Taken 11/10/17] paroxetine HCl [Paxil] 40 mg PO DAILY 04/08/13 [History Last Taken 11/10/17] pravastatin 80 mg PO DAILY 11/10/17 [History Last Taken 11/10/17] losartan 25 mg PO DAILY 02/02/19 [History Last Taken Unknown] allopurinol 300 mg PO DAILY 04/23/21 [History Last Taken Unknown] amlodipine 2.5 mg PO DAILY 04/23/21 [History Last Taken Unknown] famotidine 20 mg PO QHS 04/23/21 [History Last Taken Unknown] levothyroxine 100 mcg PO DAILY 04/23/21 [History Last Taken Unknown] trazodone 50 mg PO DAILY 04/23/21 [History Last Taken Unknown] Allergy/AdvReac Type Severity Reaction Status Date / Time No Known Allergies Allergy Verified 04/23/21 12:22 Social History Smoking Status: Never smoker Physical Exam Const Constitutional Narrative: Intubated and sedated Lab / Micro Data Result Diagrams: 05/02/21 04:20 05/02/21 04:20 Labs: Laboratory Results - last 24 hr 05/01/21 05:40: Diff Path Review Reviewed 05/01/21 18:55: Total Creatine Kinase 166, Triglycerides 384 H 05/02/21 04:20: WBC 15.6 H, RBC 4.13 L, Hgb 11.5 L, Hct 37.0 L, MCV 89.6, MCH 27.8, MCHC 31.1 L D, RDW Std Deviation 45.6 H, RDW Coeff of Martita 13.9, Plt Count 408, MPV 10.2, Immature Gran % (Auto) 4.200 H, Neut % (Auto) 86.1 H, Lymph % (Auto) 2.2 L, [place] % (Auto) 7.2, Eos % (Auto) 0.0, Baso % (Auto) 0.3, Absolute Neuts (auto) 13.4 H, Absolute Lymphs (auto) 0.34 L, Nucleated RBC % 0, Differential Comment SCANNED 05/02/21 04:20: Sodium 134 L, Potassium 6.1 H*, Chloride 98, Carbon Dioxide 23.0, Anion Gap 13, BUN 133 H*, Creatinine 6.23 H, Estim Creat Clear Calc 16.57, Est GFR (MDRD) Af Amer 12 L, Est GFR (MDRD) Non-Af 10 L, BUN/Creatinine Ratio 21.3 H, Glucose 129 H, Calcium 9.4, Total Bilirubin 0.40, AST 39 H, ALT 34, Alkaline Phosphatase 73, Total Protein 7.2, Albumin 1.9 L, Globulin 5.3 H, Albumin/Globulin Ratio 0.4 L 05/02/21 04:20: APTT 121.1 H* Micro: Microbiology 05/01/21 16:57 Sputum, Induced/Lukens Gram Stain - Final 05/01/21 16:57 Sputum, Induced/Lukens Respiratory Culture - Preliminary Culture exhibits no growth. ABG Data ABG results: ABG 05/01/21 05/02/21 05/02/21 19:38 05:52 08:09 Specimen Type ART ART ART Sample Site L Radial L Radial R Radial pH 7.28 L 7.15 L* 7.18 L* Bicarbonate Actual 20.5 L 20.9 L 21.1 L Total CO2 22 23 23 Base Excess -6 L -8 L -7 L O2 Saturation 83 L 86 L 82 L O2 % 100 85 80 ABG pCO2 43.7 60.3 H 56.3 H ABG pO2 53 L 67 L 58 L Armen Test Positive Positive Positive Respiration Rate 14 14 17 O2 Delivery Device Adult Vent Adult Vent Adult Vent Vent Mode AC AC AC Tidal Volume 450 450 450 POC PEEP 12 14 14 Crit Call To/Read Back Yes Yes Blood Gas Notified Whom Dr. Dobbs 05/02/21 11:15 Specimen Type ART Sample Site R Radial pH 7.24 L Bicarbonate Actual 20.3 L Total CO2 22 Base Excess -7 L O2 Saturation 87 L O2 % 80 ABG pCO2 47.7 H ABG pO2 62 L Armen Test Positive Respiration Rate 17 O2 Delivery Device Adult Vent Vent Mode AC Tidal Volume 500 POC PEEP 14 Crit Call To/Read Back Blood Gas Notified Whom Radiology Impression Chest X-Ray 05/01/21 14:00 IMPRESSION: Improved aeration as compared to prior study. New small right pneumothorax as well as medial left pneumothorax and pneumomediastinum. Septations emphysema of the cervical region and left thorax. The ordering physician was notified. Electronically Signed: Sam Bruner MD at 14:30 EST , Service support , Chest CT 05/01/21 14:38 IMPRESSION: 1. Severe bilateral subsegmental atelectasis or pneumonitis. Commonly reported imaging features of February 25 pneumonia are present. Other processes such as influenza pneumonia and organized pneumonia or drug toxicity and connective tissue disease can cause a similar imaging pattern. 2. Severe pneumomediastinum extending in the neck and left side of the chest with a tiny apical left pneumothorax. Electronically Signed: Sony Cohen MD at 15:49 EST Tel , Service support , Chest X-Ray 05/01/21 17:02 IMPRESSION: 1. ET tube placed in the interval projecting within the RIGHT mainstem bronchus. Retraction approximately [address] the tip at the level of the aortic knob. 2. NG tube extends below LEFT hemidiaphragm. 3. RIGHT apical pneumothorax with a mild improvement, currently estimated 1.3 cm. No mediastinal shift. The previously reported LEFT apical pneumothorax is not clearly demonstrated on current exam. 4. Persistent subcutaneous emphysema and pneumomediastinum. N.B. : The above Results were Read Back by Sony Aranda MD to Dagmar Morales RN, and understanding confirmed on 05/01/2021 20:06:21 (ET). Electronically Signed: Sony Aranda MD at 20:08 EST Tel , Service support , ADDENDUM: 05/01/212014 IMPRESSION: 1. ET tube placed in the interval projecting within the RIGHT mainstem bronchus. Retraction approximately [address] the tip at the level of the aortic knob. 2. NG tube extends below LEFT hemidiaphragm. 3. RIGHT apical pneumothorax with a mild improvement, currently estimated 1.3 cm. No mediastinal shift. The previously reported LEFT apical pneumothorax is not clearly demonstrated on current exam. 4. Persistent subcutaneous emphysema and pneumomediastinum. N.B. : The above Results were Read Back by Sony Aranda MD to Dagmar Morales RN, and understanding confirmed on 05/01/2021 20:06:21 (ET). Electronically Signed: Sony Aranda MD at 20:08 EST Tel , Service support , KUB X-Ray 05/01/21 17:05 IMPRESSION: 1. Nasogastric tube with the tip in the right upper quadrant likely in the second portion of duodenum. 2. No bowel obstruction. Electronically Signed: Sony Cohen MD at 17:39 EST Tel , Service support , Chest X-Ray 05/01/21 20:00 IMPRESSION: 1. Interval retraction of endotracheal tube. Tip is now located 2.7 cm above the ant. 2. Transaxial catheter is unchanged with tip off the examination. 3. Unchanged appearance of bilateral multilobar airspace disease. 4. Unchanged biapical pneumothoraces, subcutaneous emphysema, and pneumomediastinum. Electronically Signed: Isacc Taylor MD at 21:31 EST Tel , Service support ,
--- NOTE | 2021-05-02 13:53 | PCM.OPRPT ---
Problems Associated Problem List Diagnoses (1) BEST (acute kidney injury): Report of Operation Date of Procedure: 05/02/21 Pre-Operative Diagnosis: Acute kidney injury need for vascular access for dialysis Post-Operative Diagnosis: Same Surgery/Procedure Performed:: Ultrasound-guided right IJ temporary dialysis catheter placement Description of Procedure: The patient's right IJ was localized which was difficult giving the crepitus. The right neck was prepped and draped in a sterile fashion. Using ultrasound guidance the skin over the IJ was injected with local anesthetic in the neck with a scalpel. Using a needle under ultrasound guidance the right IJ was accessed and there was good blood return. The guidewire was placed without resistance and then the needle was removed. The serial dilators were then placed and removed and then the catheter was placed over the guidewire. Guidewire was removed and both catheters were flushed and dino easily. They were both clamped. The catheter was sutured to the skin using the included nylon suture. Heparin was not injected as dialysis team is here to start heparin immediately. Dressing was applied and the patient tolerated the procedure well. Chest x-ray pending.
--- NOTE | 2021-05-02 14:27 | OP.PCM_ITS ---
Problems Associated Problem List Diagnoses (1) COVID-19: Report of Operation Date of Procedure: 05/02/21 Pre-Operative Diagnosis: Need for vascular access Post-Operative Diagnosis: Same Surgery/Procedure Performed:: Ultrasound-guided left IJ triple-lumen catheter placement Description of Procedure: Patient's left neck was prepped and draped in usual sterile fashion. Ultrasound was used to localize left IJ. A small gt was made in the skin. Under ultrasound guidance a needle was used to access the left IJ and there was good aspiration. There is nonpulsatile bleeding. The phillip dewire was placed without resistance and then the needle was removed. A dilator was placed and then removed. Triple-lumen catheter was placed over the guidewire and the guidewire was removed. All 3 ports were aspirated and flushed. All 3 ports aspirated and flushed easily with nonpulsatile bleeding. The catheter was then sutured to the skin using 3-0 silk suture. Dressing was applied. Patient tolerated the procedure well. X-ray will be obtained.
--- NOTE | 2021-05-02 14:35 | RAD_ITS ---
STUDY: X-RAY CHEST REASON FOR EXAM: Male, 45 years old. dialysis catheter placement TECHNIQUE: Frontal portable view of the chest COMPARISON: 01 May 2021 FINDINGS: Appearance is stable since prior. There is right internal jugular central venous catheter terminating with its tip in the upper right atrium. Left internal jugular central venous catheter terminates in the SVC. Endotracheal tube terminates 3 cm from the ant. Gastric tube descends into the stomach. There is extensive severe bilateral pneumonia. There are small bilateral pneumothoraces. There is extensive pneumonia mediastinum and subcutaneous and interstitial emphysema. RAD/CXR for Line Placement IMPRESSION: 1. Right IJ catheter terminating with its tip in the upper right atrium. 2. Otherwise stable since prior. 3. Small pneumothoraces, pneumomediastinum and interstitial emphysema. 4. Extensive bilateral lung disease, likely pneumonia and/or pulmonary edema. Electronically Signed: Jackie Pride MD at 15:41 EST Tel , Service support ,
[2021-05-02 16:43] LABS: ALB/GLOB Ratio 0.4 RATIO (0.9-2.4); AST(SGOT) 26 U/L (15-37); Alanine Aminotransfer ALT/SGPT 33 U/L (16-61); Albumin, Serum 1.9 g/dL (3.2-5.0); Alkaline Phosphatase 78 U/L (45-117); Anion Gap 12 (5-15); BUN 114 mg/dL (7-18); BUN/Creat Ratio 21.2 RATIO (10-20); Calcium,Total 8.7 mg/dL (8.5-10.1); Chloride 99 mmol/L (98-107); Creatinine, Serum 5.39 mg/dL (0.70-1.30); EST Glomerular Filtration Rate 12 mL/min (>60); Est Glom Filt Rate - Afr Amer 15 mL/min (>60); Estimated Creatinine Clearance 19.15 ml/min; Globulin 5.1 g/dL (2.2-4.2); Glucose 78 mg/dL (74-106); Potassium 5.2 mmol/L (3.5-5.1); Sodium Level 136 mmol/L (136-145)
--- NOTE | 2021-05-02 17:08 | DIALYSIS ---
Hemodialysis today. First dialysis tx. Pt hypotensive throughout tx, Levo started. Ran pt even no fluid removed. Pt stable at this time Report to LETY Arias
[2021-05-02] MEDS: Propofol 10MG/Ml 1,000 MG/100 ML Bottle 21.8 MG CONT INF (21:15)
[2021-05-02 22:21] LABS: Partial Thromboplast Time 43.9 Seconds (24.1-36.2)
[2021-05-03] VITALS (32 sets, daily range): BP systolic 98–146; BP diastolic 59–89; PULSE 68–98; RESP 15–17; TEMP 36.9–37.4; O2SAT 83–94
[2021-05-03] MEDS: Heparin Injection (Vial) 5,000 UNIT/ML VIAL IV (00:39)
[2021-05-03] MEDS: Propofol 10MG/Ml 1,000 MG/100 ML Bottle 18.2 MG CONT INF ×5 (04:45→23:50)
--- NOTE | 2021-05-03 04:55 | NURSING ---
Bag not fully infused at 0200. Bag changed at 0445.
[2021-05-03 05:12] LABS: Phosphorus 11.1 mg/dL (2.5-4.9)
[2021-05-03 05:43] LABS: Absolute Lymphocyte Count 0.51 X10^3/uL (0.83-4.51); Absolute Neutrophil Count 18.2 X10^3/uL (2.0-7.7); Basophil# 0.08 X10^3/uL; Basophil% 0.4 % (0-1); Eosinophil# 0.02 X10^3/uL; Eosinophils% 0.1 % (0-5); Hematocrit 35.5 % (40-54); Hemoglobin 11.1 g/dL (13.0-16.5); Lymphocyte # 0.51 X10^3/ul (0.83-4.51); Lymphocyte % 2.3 % (19-41); Mean Corp Hgb Conc 31.3 g/dL (32-36); Mean Corpuscular Hgb 27.7 pg (27.0-32.0); Mean Corpuscular Volume 88.5 fL (80-94); Mean Platelet Vol. 10.5 fl (6.2-12.0); Monocyte# 2.64 X10^3/uL; Monocyte% 11.8 % (0-10); NRBC Flagged by Analyzer 0 % (0-5); Neutrophil # 18.15 X10^3/uL (2.7-7.7); Neutrophil % 80.9 % (47-70); POSITIVE DIFFERENTIAL YES; Platelet Count 366 K/mm3 (150-450); RBC Distribution Width CV 13.8 % (11.6-14.6); RBC Distribution Width SD 44.8 fl (35.1-43.9); Red Blood Count 4.01 M/mm3 (4.6-6.2); White Blood Count 22.4 K/mm3 (4.4-11.0)
[2021-05-03 05:46] LABS: Differential Indicated SCAN CRITERIA MET
[2021-05-03 06:04] LABS: Differential Comment SCANNED
[2021-05-03 06:19] LABS: ALB/GLOB Ratio 0.3 RATIO (0.9-2.4); AST(SGOT) 48 U/L (15-37); Alanine Aminotransfer ALT/SGPT 29 U/L (16-61); Albumin, Serum 1.6 g/dL (3.2-5.0); Alkaline Phosphatase 71 U/L (45-117); Anion Gap 15 (5-15); BUN 117 mg/dL (7-18); BUN/Creat Ratio 19.5 RATIO (10-20); Calcium,Total 8.6 mg/dL (8.5-10.1); Chloride 98 mmol/L (98-107); EST Glomerular Filtration Rate 11 mL/min (>60); Est Glom Filt Rate - Afr Amer 13 mL/min (>60); Globulin 5.4 g/dL (2.2-4.2); Glucose 68 mg/dL (74-106); Potassium 5.4 mmol/L (3.5-5.1); Sodium Level 134 mmol/L (136-145)
--- NOTE | 2021-05-03 06:44 | PCM.PN.INT ---
Assessment & Plan Assessment/Plan (1) Acute respiratory failure with hypoxia: (2) COVID-19: (3) CKD (chronic kidney disease), stage IV: (4) Hyperphosphatemia: (5) History of polycystic kidney disease: PLAN: RECOMMENDATIONS: 1. Continue Decadron as ordered. No Remdesivir or baricitinib secondary to renal function 2. Agree with heparin drip 3. Continue paralytic therapy for 24 more hours 4. Chest x-ray with any hemodynamic decompensation for possible chest tube 5. Continue bronchodilators 6. Wean oxygen as tolerated 7. Check ABG to ensure adequate ventilation 8. Dialysis per nephrology IMPRESSIONS: 1. Acute hypoxic respiratory failure secondary to COVID-19 Very difficult situation. Therapeutic interventions are limited given renal function and patient has progressed despite Decadron therapy. Patient does report he is used inhalers in the past, so mild intermittent asthma could be a complication. Will attempt using bronchodilators for recruitment. Anticipate continuing paralysis for another 24 hours given pneumothorax and pneumomediastinum. Continue to wean FiO2 as tolerated. Check panculture with fever. 2. Polycystic kidney/chronic kidney disease stage IV/obesity/nonvaccinated status/depression Complicates care, management, recovery and prognosis. Patient to have dialysis per nephrology. Patient is requiring significant sedation given paralytics and this may lead to temporary intolerance of dialysis. TIME: 34 minutes critical care time spent addressing patient's acute hypoxic respiratory failure, COVID-19, chronic kidney disease, review of all data and collaboration with care team Subjective Subjective Patient did have some difficulties with hemodialysis yesterday given hypotension. Pressors were ordered, but did not have to be initiated. Patient has been hemodynamically stable overnight and has been able to be weaned to 70% FiO2. Patient remains paralyzed with appropriate BIS Objective Data Objective Data Vital Signs: Vital Signs Temp Pulse Resp BP Pulse Ox 36.9 C 80 17 108/70 91 05/03/21 02:00 05/03/21 04:46 05/03/21 04:46 05/03/21 02:00 05/03/21 04:46 Oxygen Flow Rate (L/min) 60 Oxygen Delivery Method Mechanical Ventilator Weight: 118.2 kg Body Mass Index (BMI) 35.6 Intake & Output: Intake and Output for Last 24 Hours 05/01/21 05/02/21 05/03/21 23:59 23:59 23:59 Intake Total 482.98 / 545.88 1774.15 / 1922.35 465.75 / 465.75 Output Total 750 / 750 1400 / 1450 110 / 110 Balance -267.02 / -204.12 374.15 / 472.35 355.75 / 355.75 Lab / Micro Data Result Diagrams: 05/03/21 04:15 05/03/21 04:15 Labs: Laboratory Results - last 24 hr 05/02/21 15:50: Sodium 136, Potassium 5.2 H, Chloride 99, Carbon Dioxide 25.0, Anion Gap 12, BUN 114 H*, Creatinine 5.39 H, Estim Creat Clear Calc 19.15, Est GFR (MDRD) Af Amer 15 L, Est GFR (MDRD) Non-Af 12 L, BUN/Creatinine Ratio 21.2 H, Glucose 78, Calcium 8.7, Total Bilirubin 0.40, AST 26, ALT 33, Alkaline Phosphatase 78, Total Protein 7.0, Albumin 1.9 L, Globulin 5.1 H, Albumin/Globulin Ratio 0.4 L 05/02/21 21:25: APTT 43.9 H 05/03/21 04:15: Phosphorus 11.1 H* 05/03/21 04:15: WBC 22.4 H, RBC 4.01 L, Hgb 11.1 L, Hct 35.5 L, MCV 88.5, MCH 27.7, MCHC 31.3 L, RDW Std Deviation 44.8 H, RDW Coeff of Martita 13.8, Plt Count 366, MPV 10.5, Immature Gran % (Auto) 4.500 H, Neut % (Auto) 80.9 H, Lymph % (Auto) 2.3 L, [place] % (Auto) 11.8 H, Eos % (Auto) 0.1, Baso % (Auto) 0.4, Absolute Neuts (auto) 18.2 H, Absolute Lymphs (auto) 0.51 L, Nucleated RBC % 0, Differential Comment SCANNED, Diff Path Review September05/03/21 04:15: Sodium 134 L, Potassium 5.4 H, Chloride 98, Carbon Dioxide 21.0, Anion Gap 15, BUN 117 H*, Creatinine 6.00 H, Estim Creat Clear Calc 17.20, Est GFR (MDRD) Af Amer 13 L, Est GFR (MDRD) Non-Af 11 L, BUN/Creatinine Ratio 19.5, Glucose 68 L, Calcium 8.6, Total Bilirubin 0.40, AST 48 H, ALT 29, Alkaline Phosphatase 71, Total Protein 7.0, Albumin 1.6 L, Globulin 5.4 H, Albumin/Globulin Ratio 0.3 L Micro: Microbiology 05/01/21 16:57 Sputum, Induced/Lukens Gram Stain - Final 05/01/21 16:57 Sputum, Induced/Lukens Respiratory Culture - Preliminary Culture exhibits no growth. 04/29/21 04:00 Urine, Clean Catch Legionella Antigen - Final 04/29/21 04:00 Urine, Clean Catch Streptococcus pneumoniae Antigen (M - Final 04/23/21 12:22 Nasal Secretion SARS-CoV-2 Antigen (Rapid) - Final SARS-CoV-2 (COVID 19) ABG Data ABG results: ABG 05/02/21 05/02/21 08:09 11:15 Specimen Type ART ART Sample Site R Radial R Radial pH 7.18 L* 7.24 L Bicarbonate Actual 21.1 L 20.3 L Total CO2 23 22 Base Excess -7 L -7 L O2 Saturation 82 L 87 L O2 % 80 80 ABG pCO2 56.3 H 47.7 H ABG pO2 58 L 62 L Armen Test Positive Positive Respiration Rate 17 17 O2 Delivery Device Adult Vent Adult Vent Vent Mode AC AC Tidal Volume 450 500 POC PEEP 14 14 Crit Call To/Read Back Yes Radiography Diagnostic Testing: Radiology Impression Chest X-Ray 05/02/21 14:35 IMPRESSION: 1. Right IJ catheter terminating with its tip in the upper right atrium. 2. Otherwise stable since prior. 3. Small pneumothoraces, pneumomediastinum and interstitial emphysema. 4. Extensive bilateral lung disease, likely pneumonia and/or pulmonary edema. Electronically Signed: Jackie Pride MD at 15:41 EST Tel , Service support , Physical Exam Const alert and oriented x3 Constitutional Narrative: Paralyzed with BIS monitor in the 40s General Appearance: cooperative, intubated and patient mechanically ventilated Orientation / Consciousness: awake and oriented to person Nutritional Appearance: obese HEENT normocephalic Eyes no scleral icterus Neck full ROM Lymph Lymphatic: no lymphadenopathy noted Chest inspection of chest normal Chest: symmetrical chest wall rise and crepitus sternum and other (Right greater than left neck) Resp Effort and Inspection: symmetric chest movement Auscultation: rhonchi and diminished lung sounds; Negative for rales or wheezes Cardio regular rate GI normal to inspection, nondistended, normoactive bowel sounds GI Narrative: obese Groin / Perineum Exam: Negative for edema Extremity no clubbing, cyanosis or edema Skin Trauma: other multiple tattoos on chest, arms Neuro Coordination: other (restless legs) Psych Psych Narrative: Paralyzed Charges/Coding Procedures Hospitalists Procedures: [id number] Critial Care 1st Hr
[2021-05-03] MEDS: Ipratropium/Albuterol Sulfate 3 ML AMPUL.NEB INHALATION ×3 (06:55→19:01)
--- NOTE | 2021-05-03 09:42 | PCM.PN.BLA ---
Progress Note dialysis yesterday with hypotension throughout treatment. Unable to remove fluid requiring pressor support. Potassium improved. Remains hypotensive on vent, sedate, paralyzed. Acute on CKD stage 4 due to COVID ATN. Underlying CKD due to PCKD. Baseline creatinine 5 range. Continue to monitor for renal replacement support.
[2021-05-03] MEDS: Chlorhexidine 15 ML PO ×2 (09:56→20:40)
--- NOTE | 2021-05-03 12:32 | PN.HOSP_ITS ---
Subjective Subjective FiO2 down to 70%. Objective Data Objective Data Vital Signs: Vital Signs Temp Pulse Resp BP Pulse Ox 37.3 C H 80 17 106/69 90 05/03/21 11:00 05/03/21 11:39 05/03/21 11:39 05/03/21 06:00 05/03/21 11:39 Oxygen Flow Rate (L/min) 60 Oxygen Delivery Method Mechanical Ventilator Weight: 118.2 kg Body Mass Index (BMI) 35.6 Intake & Output: Intake and Output for Last 24 Hours 05/01/21 05/02/21 05/03/21 23:59 23:59 23:59 Intake Total 482.98 / 545.88 1774.15 / 1922.35 821.64 / 821.64 Output Total 750 / 750 1400 / 1450 110 / 110 Balance -267.02 / -204.12 374.15 / 472.35 711.64 / 711.64 Lab / Micro Data Result Diagrams: 05/03/21 04:15 05/03/21 04:15 Labs: Laboratory Results - last 24 hr 05/02/21 15:50: Sodium 136, Potassium 5.2 H, Chloride 99, Carbon Dioxide 25.0, Anion Gap 12, BUN 114 H*, Creatinine 5.39 H, Estim Creat Clear Calc 19.15, Est GFR (MDRD) Af Amer 15 L, Est GFR (MDRD) Non-Af 12 L, BUN/Creatinine Ratio 21.2 H , Glucose 78, Calcium 8.7, Total Bilirubin 0.40, AST 26, ALT 33, Alkaline Phosphatase 78, Total Protein 7.0, Albumin 1.9 L, Globulin 5.1 H, Albumin/Globulin Ratio 0.4 L 05/02/21 21:25: APTT 43.9 H 05/03/21 04:15: Phosphorus 11.1 H* 05/03/21 04:15: WBC 22.4 H, RBC 4.01 L, Hgb 11.1 L, Hct 35.5 L, MCV 88.5, MCH 27.7, MCHC 31.3 L, RDW Std Deviation 44.8 H, RDW Coeff of Martita 13.8, Plt Count 366, MPV 10.5, Immature Gran % (Auto) 4.500 H, Neut % (Auto) 80.9 H, Lymph % (Auto) 2.3 L, [place] % (Auto) 11.8 H, Eos % (Auto) 0.1, Baso % (Auto) 0.4, Absolute Neuts (auto) 18.2 H, Absolute Lymphs (auto) 0.51 L, Nucleated RBC % 0, Differential Comment SCANNED, Diff Path Review September foll 05/03/21 04:15: Sodium 134 L, Potassium 5.4 H, Chloride 98, Carbon Dioxide 21.0, Anion Gap 15, BUN 117 H*, Creatinine 6.00 H, Estim Creat Clear Calc 17.20, Est GFR (MDRD) Af Amer 13 L, Est GFR (MDRD) Non-Af 11 L, BUN/Creatinine Ratio 19.5, Glucose 68 L, Calcium 8.6, Total Bilirubin 0.40, AST 48 H, ALT 29, Alkaline Phosphatase 71, Total Protein 7.0, Albumin 1.6 L, Globulin 5.4 H, Albumin/Globulin Ratio 0.3 L 05/03/21 06:30: APTT 86.0 H Micro: Microbiology 05/01/21 16:57 Sputum, Induced/Lukens Gram Stain - Final 05/01/21 16:57 Sputum, Induced/Lukens Respiratory Culture - Preliminary Alpha Hemolytic Streptococcus 04/29/21 04:00 Urine, Clean Catch Legionella Antigen - Final 04/29/21 04:00 Urine, Clean Catch Streptococcus pneumoniae Antigen (M - Final 04/23/21 12:22 Nasal Secretion SARS-CoV-2 Antigen (Rapid) - Final SARS-CoV-2 (COVID 19) Radiography Diagnostic Testing: Radiology Impression Chest X-Ray 05/02/21 14:35 IMPRESSION: 1. Right IJ catheter terminating with its tip in the upper right atrium. 2. Otherwise stable since prior. 3. Small pneumothoraces, pneumomediastinum and interstitial emphysema. 4. Extensive bilateral lung disease, likely pneumonia and/or pulmonary edema. Electronically Signed: Jackie Pride MD at 15:41 EST Tel , Service support , Assessment & Plan Assessment/Plan (1) Acute respiratory failure with hypoxia: (2) BEST (acute kidney injury): (3) COVID-19: PLAN: 1. Acute kidney injury on CKD4 worse, now with hyperkalemia DW nephrology, will need HD 2/2 PCKD. Has actually been evaluated for xplant. Improving Non-oliguric US showed numerous bilateral simple renal cysts Dr. Varghese following Baseline creatinine 5.1 (reviewed [facility] records), has been evaluated for transplant in the past at [facility]. No additional IVF as may worsen deteriorating respiratory status 05/02: had HD 05/03: no HD given hypotension 2. Acute hypoxic respiratory failure worse 2/2 COVID 19, pnuemomediastium and PTX 2/2 COVID 19. Was on room air on admission HLIV strep and legionella antigens negative 04/29: anticoagulated w hep gtt 05/01: Intubated 05/02: initiated on cisatracurium, FiO2 85% 05/03: FiO2 70%. Cisatracurium continued 3. Pneumomediastium and pneumothorax 05/01: identified (not present on 04/28) 05/02: unchanged from CXR on 05/01 4. COVID-19 Patient initially was not hypoxic but did have a pulse ox of 93% He did receive 10 mg of IV dexamethasone. We will continue with 6 mg of dexamethasone for total of 9 more days. Patient not a candidate for remdesivir acute kidney injury Patient is onset was the . Patient will need to quarantine through the . Unvaccinated DW Dr. Chaudhry, no baricitinib given BEST 5. Morbid obesity BMI about 35.9 Complicates overall care and recovery 6. VTE prophylaxis anticoagulated Charges/Coding Visit Charges Inpatient E&M: 73384 Subs Hosp L2
--- NOTE | 2021-05-03 14:15 | NURSING ---
fentanyl gtt running @ 150mcg since [id number] unable to chart titration due to previous bag hung was not documented by previous shift
[2021-05-04] VITALS (59 sets, daily range): BP systolic 76–157; BP diastolic 46–94; PULSE 74–105; RESP 11–30; TEMP 36.9–37.8; O2SAT 77–92
[2021-05-04 04:07] LABS: Absolute Lymphocyte Count 0.23 X10^3/uL (0.83-4.51); Absolute Neutrophil Count 33.7 X10^3/uL (2.0-7.7); Basophil# 0.11 X10^3/uL; Basophil% 0.3 % (0-1); Eosinophil# 0.02 X10^3/uL; Eosinophils% 0.1 % (0-5); Hematocrit 35.9 % (40-54); Hemoglobin 11.1 g/dL (13.0-16.5); Lymphocyte # 0.23 X10^3/ul (0.83-4.51); Lymphocyte % 0.6 % (19-41); Mean Corp Hgb Conc 30.9 g/dL (32-36); Mean Corpuscular Hgb 27.9 pg (27.0-32.0); Mean Corpuscular Volume 90.2 fL (80-94); Mean Platelet Vol. 10.2 fl (6.2-12.0); Monocyte# 1.99 X10^3/uL; Monocyte% 5.4 % (0-10); NRBC Flagged by Analyzer 0.1 % (0-5); Neutrophil # 33.71 X10^3/uL (2.7-7.7); Neutrophil % 90.8 % (47-70); POSITIVE COUNT YES; POSITIVE DIFFERENTIAL YES; Platelet Count 346 K/mm3 (150-450); RBC Distribution Width CV 14.1 % (11.6-14.6); RBC Distribution Width SD 47.3 fl (35.1-43.9); Red Blood Count 3.98 M/mm3 (4.6-6.2)
[2021-05-04 04:51] LABS: ALB/GLOB Ratio 0.2 RATIO (0.9-2.4); AST(SGOT) 65 U/L (15-37); Alanine Aminotransfer ALT/SGPT 34 U/L (16-61); Albumin, Serum 0.9 g/dL (3.2-5.0); Alkaline Phosphatase 107 U/L (45-117); Anion Gap 17 (5-15); BUN 126 mg/dL (7-18); BUN/Creat Ratio 16.4 RATIO (10-20); Calcium,Total 8.4 mg/dL (8.5-10.1); Chloride 97 mmol/L (98-107); Creatinine, Serum 7.69 mg/dL (0.70-1.30); EST Glomerular Filtration Rate 8 mL/min (>60); Est Glom Filt Rate - Afr Amer 10 mL/min (>60); Estimated Creatinine Clearance 13.42 ml/min; Globulin 5.8 g/dL (2.2-4.2); Glucose 65 mg/dL (74-106); Potassium 6.4 mmol/L (3.5-5.1); Protein, Total 6.7 g/dL (6.4-8.2); Sodium Level 134 mmol/L (136-145)
[2021-05-04 04:52] LABS: Differential Indicated SCAN CRITERIA MET; White Blood Count 37.1 K/mm3 (4.4-11.0)
[2021-05-04 05:00] LABS: Differential Comment SCANNED
[2021-05-04] MEDS: Propofol 10MG/Ml 1,000 MG/100 ML Bottle 18.2 MG CONT INF (05:30)
--- NOTE | 2021-05-04 06:20 | RAD_ITS ---
STUDY: X-RAY CHEST REASON FOR EXAM: Male, 45 years old. Pneumos TECHNIQUE: Single AP portable view of the chest. COMPARISON: 05/02/2021 FINDINGS: Endotracheal tube, nasogastric tube, right internal jugular deep venous line, and left internal jugular deep venous line all of which are unchanged. Increase in alveolar opacity lower aspect of both lungs consistent with worsening bibasilar pneumonia. There is no demonstrated pleural abnormality. Normal size heart. Normal mediastinum and edson. Normal visualized pulmonary arteries. Normal visualized aortic arch and descending thoracic aorta. Normal visualized thoracic spine. Normal visualized ribs, clavicles, and shoulders. There is no demonstrated abnormality of the visualized soft tissue structures of the upper abdomen. RAD/Chest 1 View (Portable) IMPRESSION: Worsening bibasilar pneumonia. Electronically Signed: Sony Cohen MD at 6:34 EST Tel , Service support ,
--- NOTE | 2021-05-04 07:15 | NURSING ---
MAR shows nimbex infused, currently running at 1 mcg/kg/min
--- NOTE | 2021-05-04 07:23 | PN.CC_ITS ---
Assessment & Plan Assessment/Plan (1) Acute respiratory failure with hypoxia: (2) COVID-19: (3) CKD (chronic kidney disease), stage IV: (4) Hyperphosphatemia: (5) History of polycystic kidney disease: PLAN: RECOMMENDATIONS: 1. Continue Decadron as ordered. No Remdesivir or baricitinib secondary to renal function 2. Hold on heparin drip secondary to oozing from lines 3. Discontinue paralytic therapy 4. May attempt APRV later today 5. Continue bronchodilators 6. Wean oxygen as tolerated 7. Check ABG to ensure adequate ventilation if initiated on APRV 8. Dialysis per nephrology. Patient would greatly benefit from volume removal. 9. Initiate antibiotics IMPRESSIONS: 1. Acute hypoxic respiratory failure secondary to COVID-19 Very difficult situation. Therapeutic interventions are limited given renal function and patient has progressed despite Decadron therapy. Patient does report he is used inhalers in the past, so mild intermittent asthma could be a complication. Will attempt using bronchodilators for recruitment. Chest x-ray shows improvement in pneumomediastinum. Patient with worsening hypoxia over the last 24 hours. Clinical suspicion for volume overload as patient is positive almost 11 L. Hopefully the patient can have dialysis today with volume removal. We will discontinue paralytic therapy. Cannot exclude the need to transition to APRV to support oxygenation. 2. Polycystic kidney/chronic kidney disease stage IV/obesity/nonvaccinated status/depression Complicates care, management, recovery and prognosis. Patient to have dialysis per nephrology. Patient is requiring significant sedation given paralytics and this may lead to temporary intolerance of dialysis. TIME: 42 minutes critical care time spent addressing patient's acute hypoxic respiratory failure, COVID-19, chronic kidney disease, review of all data and collaboration with care team Subjective Subjective Patient did not receive dialysis yesterday because of the holiday. Patient's oxygen requirements have increased significantly, along with PEEP. No pressors have been required. Oozing from lines have significantly improved following cessation of heparin drip. Objective Data Objective Data Vital Signs: Vital Signs Temp Pulse Resp BP Pulse Ox 37.3 C 85 17 101/62 84 05/04/21 07:00 05/04/21 07:18 05/04/21 07:00 05/04/21 07:00 05/04/21 07:00 Oxygen Flow Rate (L/min) 60 Oxygen Delivery Method Mechanical Ventilator Weight: 120.1 kg Body Mass Index (BMI) 35.6 Intake & Output: Intake and Output for Last 24 Hours 05/02/21 05/03/21 05/04/21 23:59 23:59 23:59 Intake Total 1774.15 / 1922.35 1922.23 / 1940.26 526.31 / 526.31 Output Total 1400 / 1450 616 / 741 215 / 215 Balance 374.15 / 472.35 1306.23 / 1199.26 311.31 / 311.31 Lab / Micro Data Result Diagrams: 05/04/21 03:50 05/04/21 03:50 Labs: Laboratory Results - last 24 hr 05/04/21 03:50: WBC 37.1 H*, RBC 3.98 L, Hgb 11.1 L, Hct 35.9 L, MCV 90.2, MCH 27.9, MCHC 30.9 L, RDW Std Deviation 47.3 H, RDW Coeff of Martita 14.1, Plt Count 346, MPV 10.2, Immature Gran % (Auto) 2.800 H, Neut % (Auto) 90.8 H, Lymph % (Auto) 0.6 L, [place] % (Auto) 5.4, Eos % (Auto) 0.1, Baso % (Auto) 0.3, Absolute Neuts (auto) 33.7 H, Absolute Lymphs (auto) 0.23 L, Nucleated RBC % 0.1, Differential Comment SCANNED, Diff Path Review September05/04/21 03:50: Sodium 134 L, Potassium 6.4 H*, Chloride 97 L, Carbon Dioxide 20.0 L, Anion Gap 17 H, BUN 126 H*, Creatinine 7.69 H*, Estim Creat Clear Calc 13.42, Est GFR (MDRD) Af Amer 10 L, Est GFR (MDRD) Non-Af 8 L, BUN/Creatinine Ratio 16.4, Glucose 65 L, Calcium 8.4 L, Total Bilirubin 0.60, AST 65 H, ALT 34, Alkaline Phosphatase 107, Total Protein 6.7, Albumin 0.9 L, Globulin 5.8 H, Albumin/Globulin Ratio 0.2 L Micro: Microbiology 05/01/21 16:57 Sputum, Induced/Lukens Gram Stain - Final 05/01/21 16:57 Sputum, Induced/Lukens Respiratory Culture - Preliminary Alpha Hemolytic Streptococcus 04/29/21 04:00 Urine, Clean Catch Legionella Antigen - Final 04/29/21 04:00 Urine, Clean Catch Streptococcus pneumoniae Antigen (M - Final 04/23/21 12:22 Nasal Secretion SARS-CoV-2 Antigen (Rapid) - Final SARS-CoV-2 (COVID 19) Radiography Diagnostic Testing: Radiology Impression Chest X-Ray 05/04/21 06:20 IMPRESSION: Worsening bibasilar pneumonia. Electronically Signed: Sony Cohen MD at 6:34 EST Tel , Service support , Personal interpretation of chest x-ray does show significant improvement in pneumomediastinum and pneumothorax. Does have increased infiltrates bilateral bases. Physical Exam Const alert and oriented x3 Constitutional Narrative: Paralyzed with BIS monitor in the 40s General Appearance: cooperative, intubated and patient mechanically ventilated Orientation / Consciousness: awake and oriented to person Nutritional Appearance: obese HEENT normocephalic Eyes no scleral icterus Neck full ROM Lymph Lymphatic: no lymphadenopathy noted Chest inspection of chest normal Chest: symmetrical chest wall rise and crepitus sternum and other (Right greater than left neck) Resp Effort and Inspection: symmetric chest movement Auscultation: rhonchi and diminished lung sounds; Negative for rales or wheezes Cardio regular rate GI normal to inspection, nondistended, normoactive bowel sounds GI Narrative: obese Groin / Perineum Exam: Negative for edema Extremity no clubbing, cyanosis or edema Skin Trauma: other multiple tattoos on chest, arms Neuro Coordination: other (restless legs) Psych Psych Narrative: Paralyzed Charges/Coding Procedures Hospitalists Procedures: [id number] Critial Care 1st Hr
[2021-05-04] MEDS: Ipratropium/Albuterol Sulfate 3 ML AMPUL.NEB INHALATION ×3 (07:34→19:54)
[2021-05-04] MEDS: TITRATION PARAMETER CHANGE 1 EACH IV (08:16)
[2021-05-04] MEDS: Chlorhexidine 15 ML PO ×2 (08:17→21:00)
--- NOTE | 2021-05-04 08:41 | NURSING ---
nimbex held at 0730, TOF 2 at 4
--- NOTE | 2021-05-04 09:13 | PCM.PN.HOSP ---
Subjective Subjective Increased FiO2. Objective Data Objective Data Vital Signs: Vital Signs Temp Pulse Resp BP Pulse Ox 37.1 C 95 18 110/69 88 05/04/21 08:00 05/04/21 08:00 05/04/21 08:00 05/04/21 08:00 05/04/21 08:00 Oxygen Flow Rate (L/min) 60 Oxygen Delivery Method Mechanical Ventilator Weight: 120.1 kg Body Mass Index (BMI) 35.6 Intake & Output: Intake and Output for Last 24 Hours 05/02/21 05/03/21 05/04/21 23:59 23:59 23:59 Intake Total 1774.15 / 1922.35 1922.23 / 1940.26 557.01 / 557.01 Output Total 1400 / 1450 616 / 741 215 / 215 Balance 374.15 / 472.35 1306.23 / 1199.26 342.01 / 342.01 Lab / Micro Data Result Diagrams: 05/04/21 03:50 05/04/21 03:50 Labs: Laboratory Results - last 24 hr 05/04/21 03:50: WBC 37.1 H*, RBC 3.98 L, Hgb 11.1 L, Hct 35.9 L, MCV 90.2, MCH 27.9, MCHC 30.9 L, RDW Std Deviation 47.3 H, RDW Coeff of Martita 14.1, Plt Count 346, MPV 10.2, Immature Gran % (Auto) 2.800 H, Neut % (Auto) 90.8 H, Lymph % (Auto) 0.6 L, [place] % (Auto) 5.4, Eos % (Auto) 0.1, Baso % (Auto) 0.3, Absolute Neuts (auto) 33.7 H, Absolute Lymphs (auto) 0.23 L, Nucleated RBC % 0.1, Differential Comment SCANNED, Diff Path Review September05/04/21 03:50: Sodium 134 L, Potassium 6.4 H*, Chloride 97 L, Carbon Dioxide 20.0 L, Anion Gap 17 H, BUN 126 H*, Creatinine 7.69 H*, Estim Creat Clear Calc 13.42, Est GFR (MDRD) Af Amer 10 L, Est GFR (MDRD) Non-Af 8 L, BUN/Creatinine Ratio 16.4, Glucose 65 L, Calcium 8.4 L, Total Bilirubin 0.60, AST 65 H, ALT 34, Alkaline Phosphatase 107, Total Protein 6.7, Albumin 0.9 L, Globulin 5.8 H, Albumin/Globulin Ratio 0.2 L Micro: Microbiology 05/01/21 16:57 Sputum, Induced/Lukens Gram Stain - Final 05/01/21 16:57 Sputum, Induced/Lukens Respiratory Culture - Preliminary Alpha Hemolytic Streptococcus 04/29/21 04:00 Urine, Clean Catch Legionella Antigen - Final 04/29/21 04:00 Urine, Clean Catch Streptococcus pneumoniae Antigen (M - Final 04/23/21 12:22 Nasal Secretion SARS-CoV-2 Antigen (Rapid) - Final SARS-CoV-2 (COVID 19) Radiography Diagnostic Testing: Radiology Impression Chest X-Ray 05/04/21 06:20 IMPRESSION: Worsening bibasilar pneumonia. Electronically Signed: Sony Cohen MD at 6:34 EST Tel , Service support , Physical Exam Const Constitutional Narrative: intubated and sedated. Resp Resp Narrative: coarse breath sounds bilaterally. Cardio regular rate, regular rhythm, S1 normal heart sound and S2 normal heart sound GI normal to inspection, nondistended, normoactive bowel sounds, soft to palpation, non-tender and non-distended Extremity normal to inspection Assessment & Plan Assessment/Plan (1) Acute respiratory failure with hypoxia: (2) BEST (acute kidney injury): (3) COVID-19: PLAN: 1. Acute kidney injury on CKD4 worse, now with hyperkalemia DW nephrology, will need HD 2/2 PCKD. Has actually been evaluated for xplant. Improving Non-oliguric US showed numerous bilateral simple renal cysts Dr. Varghese following Baseline creatinine 5.1 (reviewed [facility] records), has been evaluated for transplant in the past at [facility]. No additional IVF as may worsen deteriorating respiratory status 05/02: had HD 05/03: no HD given hypotension 2. Acute hypoxic respiratory failure worse 2/2 COVID 19, pnuemomediastium and PTX 2/2 COVID 19. Was on room air on admission HLIV strep and legionella antigens negative 04/29: anticoagulated w hep gtt 05/01: Intubated 05/02: initiated on cisatracurium, FiO2 85% 05/03: FiO2 70%. Cisatracurium continued 05/04: increased FiO2 to 100%. Cisatracurium to be dc'd 3. Pneumomediastium and pneumothorax 05/01: identified (not present on 04/28) 05/02: unchanged from CXR on 05/01 4. COVID-19 Patient initially was not hypoxic but did have a pulse ox of 93% He did receive 10 mg of IV dexamethasone. We will continue with 6 mg of dexamethasone for total of 9 more days. Patient not a candidate for remdesivir acute kidney injury Patient is onset was the eighth. Patient will need to quarantine through the . Unvaccinated DW Dr. Chaudhry, no baricitinib given BEST 5. Morbid obesity BMI about 35.9 Complicates overall care and recovery 6. VTE prophylaxis anticoagulated Prognosis: guarded Charges/Coding Visit Charges Inpatient E&M: 66442 Subs Hosp L2
[2021-05-04] MEDS: Ceftriaxone 1 GM/50 ML BAG IV (09:44)
--- NOTE | 2021-05-04 10:12 | NURSING ---
[employer] and toilet[employer] salesperson rn [facility] called, will run patient later today
[2021-05-04] MEDS: dexAMETHasone 4 MG/ML Vial 6 MG IV (10:35)
[2021-05-04] MEDS: Nystatin Powder 15gm Bottle 1 APPLIC TOPICAL ×2 (10:35→21:00)
[2021-05-04] MEDS: Propofol 10MG/Ml 1,000 MG/100 ML Bottle 21.6 MG CONT INF (10:44)
--- NOTE | 2021-05-04 11:08 | CPS ---
Switched vent modes from AC/VC to APRV phigh 24 plow 0 thigh 4.5 fio2 100% rate 12 made aware of changes per LETY aLnders. Orders to increase phigh by 2 until pt stabilized.
[2021-05-04] MEDS: Sodium Bicarbonate 8.4% 50 ML Syringe 50 MEQ IV (11:58)
--- NOTE | 2021-05-04 12:20 | NURSING ---
patient RASS and CPOT are within goal, however on APRV mode patient with no spontaneous breaths therefore sedation weaned down
[2021-05-04 13:16] LABS: Allen Test Positive; Base Excess -9 mmol/L (-2 to +2); Bicarbonate 20.3 mmol/L (22-26); Blood Gas Specimen Type ART; FI02 100; Mode BiLevel; O2 Delivery Device Adult Vent; PO2 53 mmHG (75-100); PS 5; RR 12; SITE L Radial; SO2 75 % (95-99); Total Carbon Dioxide 22 mmol/L; pCO2 61.7 mmHg (35-45); pH 7.13 (7.35-7.45)
[2021-05-04] MEDS: Furosemide 100 MG/10 ML Vial 80 MG IV (13:50)
--- NOTE | 2021-05-04 15:40 | PN.RENAL_ITS ---
Subjective Subjective Currently on pressor support for hypotension earlier today. Receiving hemodialysis. Set for 1L fluid removal at this time showing C profile with sharp drop in slope to suggest low intravascular volume. Opening eyes to verbal stimuli but slow to respond. On vent with hypoxemia. Poor urine output with iv lasix given earlier today. Objective Data Objective Data Vital Signs: Vital Signs Temp Pulse Resp BP Pulse Ox 98.6 F 98 18 122/71 H 86 05/04/21 13:00 05/04/21 14:55 05/04/21 14:00 05/04/21 14:45 05/04/21 14:00 Oxygen Flow Rate (L/min) 60 Oxygen Delivery Method Mechanical Ventilator Weight: 120.1 kg Body Mass Index (BMI) 35.6 Intake & Output: Intake and Output for Last 24 Hours 05/02/21 05/03/21 05/04/21 23:59 23:59 23:59 Intake Total 1774.15 / 1922.35 1922.23 / 1940.26 930.59 / 930.59 Output Total 1400 / 1450 616 / 741 225 / 225 Balance 374.15 / 472.35 1306.23 / 1199.26 705.59 / 705.59 Lab / Micro Data Result Diagrams: 05/05/21 04:00 05/05/21 04:00 Labs: Laboratory Results - last 24 hr 05/04/21 03:50: WBC 37.1 H*, RBC 3.98 L, Hgb 11.1 L, Hct 35.9 L, MCV 90.2, MCH 27.9, MCHC 30.9 L, RDW Std Deviation 47.3 H, RDW Coeff of Martita 14.1, Plt Count 346, MPV 10.2, Immature Gran % (Auto) 2.800 H, Neut % (Auto) 90.8 H, Lymph % (Auto) 0.6 L, [place] % (Auto) 5.4, Eos % (Auto) 0.1, Baso % (Auto) 0.3, Absolute Neuts (auto) 33.7 H, Absolute Lymphs (auto) 0.23 L, Nucleated RBC % 0.1, Differential Comment SCANNED, Diff Path Review September05/04/21 03:50: Sodium 134 L, Potassium 6.4 H*, Chloride 97 L, Carbon Dioxide 20.0 L, Anion Gap 17 H, BUN 126 H*, Creatinine 7.69 H*, Estim Creat Clear Calc 13.42, Est GFR (MDRD) Af Amer 10 L, Est GFR (MDRD) Non-Af 8 L, BUN/Creatinine Ratio 16.4, Glucose 65 L, Calcium 8.4 L, Total Bilirubin 0.60, AST 65 H, ALT 34, Alkaline Phosphatase 107, Total Protein 6.7, Albumin 0.9 L, Globulin 5.8 H, Albumin/Globulin Ratio 0.2 L Micro: Microbiology 05/01/21 16:57 Sputum, Induced/Lukens Gram Stain - Final 05/01/21 16:57 Sputum, Induced/Lukens Respiratory Culture - Preliminary Streptococcus pneumoniae Haemophilus influenzae 04/29/21 04:00 Urine, Clean Catch Legionella Antigen - Final 04/29/21 04:00 Urine, Clean Catch Streptococcus pneumoniae Antigen (M - Final 04/23/21 12:22 Nasal Secretion SARS-CoV-2 Antigen (Rapid) - Final SARS-CoV-2 (COVID 19) ABG Data ABG results: ABG 05/04/21 13:11 Specimen Type ART Sample Site L Radial pH 7.13 L* Bicarbonate Actual 20.3 L Total CO2 22 Base Excess -9 L O2 Saturation 75 L O2 % 100 ABG pCO2 61.7 H ABG pO2 53 L Armen Test Positive Respiration Rate 12 O2 Delivery Device Adult Vent Vent Mode BiLevel POC Pressure Suppt 5 Crit Call To/Read Back Yes Blood Gas Notified Whom Clinical Comments Radiography Diagnostic Testing: Radiology Impression Chest X-Ray 05/04/21 06:20 IMPRESSION: Worsening bibasilar pneumonia. Electronically Signed: Sony Cohen MD at 6:34 EST Tel , Service support , Physical Exam Const Constitutional Narrative: opens eyes, slow to respond General Appearance: patient mechanically ventilated Resp Resp Narrative: on vent Cardio Cardio Narrative: mild tachycardia Extremity no pedal edema Psych Psych Narrative: sedate, on vent Assessment & Plan Assessment/Plan (1) BEST (acute kidney injury): PLAN: acute on CKD Stage 4 due to COVID/ATN with poor urine output to iv lasix. Currently on dialysis requiring pressor support, on vent with hypoxemia. Poor tolerance to fluid removal. Attempt 1-3L fluid removal if tolerated. So far not tolerating 1L fluid removal early into treatment with C profile on critline. [facility], dialysis nurse (2) Acute respiratory failure with hypoxia: PLAN: due to COVID on vent, (3) CKD (chronic kidney disease), stage IV: PLAN: d/t PCKD. 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 (4) History of polycystic kidney disease: (5) COVID-19: PLAN: unvaccinated, continued hypoxia with worsening infiltrates on CXR, intubated, s/p decadron therapy (6) Hyperkalemia: PLAN: dialysis today (7) Hyperphosphatemia: PLAN: add binders with meals (8) Pneumococcal pneumonia (streptococcus pneumoniae pneumonia): PLAN: with H influenza started on iv antibiotics, increased leukocytosis. (9) Sepsis: PLAN: on pressors
--- NOTE | 2021-05-04 16:33 | RAD_ITS ---
STUDY: X-RAY CHEST REASON FOR EXAM: Male, 45 years old. Shortness of breath, r/o pneumo TECHNIQUE: One view COMPARISON: 05/04/2021 FINDINGS: Please see the impression. RAD/Chest 1 View (Portable) IMPRESSION: Life support lines and tubes in stable positions. Multifocal airspace opacities in the bilateral mid to lower lung zones, unchanged. No sizable pleural effusion. Trachea midline. No pneumothorax. Unchanged cardiac silhouette. Electronically Signed: Chuy Anderson MD at 18:41 EST Tel , Service support ,
[2021-05-04 16:35] LABS: Allen Test Positive; Base Excess -5 mmol/L (-2 to +2); Bicarbonate 22.5 mmol/L (22-26); Blood Gas Specimen Type ART; FI02 100; Mode BiLevel; O2 Delivery Device Adult Vent; PO2 35 mmHG (75-100); PS 5; RR 12; SITE L Radial; SO2 54 % (95-99); Total Carbon Dioxide 24 mmol/L; pCO2 56.6 mmHg (35-45); pH 7.21 (7.35-7.45)
--- NOTE | 2021-05-04 16:44 | NURSING ---
Ken, consulting business developer, communicated oxygenation status and dialysis progression to Dr. Varghese, Dr. Varghese ordered Albumin 25 grams to run stat with dialysis
[2021-05-04] MEDS: Albumin Human 25% (100 mL) 25 GM/100 ML BAG IV (17:02)
[2021-05-04] MEDS: Heparin 10,000 UNITS/10 ML Vial 2800 UNITS IV (17:15)
--- NOTE | 2021-05-04 17:18 | DIALYSIS ---
Hemodialysis tx ended early per Dr. Varghese and Dr. Dobbs as pt was not tolerating dialysis session well. Pt sustained SPO2s in 75-79 range with FIO2 100%. ABG reviewed by Dr. Dobbs as well as chest X-ray and family was called back to hospital. At this time decision made by Dr. Varghese and Rinku to end tx. No fluid removal as crit-line monitor revealed a c-profile with UF of 1 liter and remained C-profile with decreased UF to 500ml. BP stable post tx and SPO2 improved to 84%. Verbal report given to LETY Brooks post tx.
--- NOTE | 2021-05-04 18:03 | NURSING ---
in depth conversation regarding patient status, POC and code status with mother, Sharyn, sister, Darah, and three daughters. All questions answered. Family to talk and make decision regarding POC.
[2021-05-05] VITALS (42 sets, daily range): BP systolic 76–151; BP diastolic 47–92; PULSE 76–95; RESP 15–45; TEMP 37.4–39.1; O2SAT 82–96
[2021-05-05] MEDS: Glycerin/Hypromellose/PEG400 15 ml Bottle 1 DRP EACH EYE (04:05)
[2021-05-05 04:23] LABS: Absolute Lymphocyte Count 0.26 X10^3/uL (0.83-4.51); Absolute Neutrophil Count 23.7 X10^3/uL (2.0-7.7); Basophil# 0.06 X10^3/uL; Basophil% 0.2 % (0-1); Lymphocyte # 0.26 X10^3/ul (0.83-4.51); Mean Corp Hgb Conc 32.3 g/dL (32-36); Mean Corpuscular Hgb 28.2 pg (27.0-32.0); Mean Corpuscular Volume 87.3 fL (80-94); Mean Platelet Vol. 10.6 fl (6.2-12.0); Monocyte# 1.92 X10^3/uL; Monocyte% 7.3 % (0-10); NRBC Flagged by Analyzer 0.2 % (0-5); Neutrophil # 23.67 X10^3/uL (2.7-7.7); Neutrophil % 89.5 % (47-70); POSITIVE DIFFERENTIAL YES; Platelet Count 292 K/mm3 (150-450); RBC Distribution Width CV 14.2 % (11.6-14.6); RBC Distribution Width SD 45.9 fl (35.1-43.9); Red Blood Count 3.55 M/mm3 (4.6-6.2); White Blood Count 26.5 K/mm3 (4.4-11.0)
[2021-05-05 04:26] LABS: Differential Indicated SCAN CRITERIA MET
[2021-05-05 04:57] LABS: ALB/GLOB Ratio 0.3 RATIO (0.9-2.4); AST(SGOT) 51 U/L (15-37); Alanine Aminotransfer ALT/SGPT 29 U/L (16-61); Albumin, Serum 1.8 g/dL (3.2-5.0); Alkaline Phosphatase 131 U/L (45-117); Anion Gap 18 (5-15); BUN 124 mg/dL (7-18); BUN/Creat Ratio 16.5 RATIO (10-20); Calcium,Total 8.2 mg/dL (8.5-10.1); Chloride 94 mmol/L (98-107); Creatinine, Serum 7.53 mg/dL (0.70-1.30); EST Glomerular Filtration Rate 8 mL/min (>60); Est Glom Filt Rate - Afr Amer 10 mL/min (>60); Estimated Creatinine Clearance 13.71 ml/min; Globulin 5.2 g/dL (2.2-4.2); Glucose 100 mg/dL (74-106); Potassium 6.8 mmol/L (3.5-5.1); Sodium Level 132 mmol/L (136-145)
[2021-05-05 05:56] LABS: Allen Test Positive; Base Excess -7 mmol/L (-2 to +2); Bicarbonate 19.2 mmol/L (22-26); Blood Gas Specimen Type ART; FI02 100; Mode BiLevel; O2 Delivery Device Adult Vent; PO2 47 mmHG (75-100); PS 5; RR 12; SITE L Radial; SO2 77 % (95-99); Total Carbon Dioxide 20 mmol/L; pCO2 39.7 mmHg (35-45); pH 7.29 (7.35-7.45)
--- NOTE | 2021-05-05 06:12 | PCM.PN.INT ---
Assessment & Plan Assessment/Plan (1) Acute respiratory failure with hypoxia: (2) COVID-19: (3) CKD (chronic kidney disease), stage IV: (4) Hyperphosphatemia: (5) History of polycystic kidney disease: PLAN: RECOMMENDATIONS: 1. Attempt to transition back to assist control mode of mechanical ventilation. Consider a trial of proning. 2. Continue Decadron to complete 10 days of therapy. 3. Continue antimicrobials as ordered. 4. Recheck D-dimer. If elevated, reattempt therapeutic heparin infusion. 5. Dialysis support with volume removal. 6. Continue appropriate GI prophylaxis. 7. Ongoing goals of care discussion with the patient's family. IMPRESSIONS: 1. Acute hypoxic respiratory failure secondary to COVID-19 combined with superimposed bacterial pneumonia The patient was initially admitted to the hospital on April 23. His hospital course has been complicated by worsening hypoxemia and renal insufficiency. The patient is currently intubated with refractory hypoxemia, despite different modes of mechanical ventilation. The patient was not a candidate for remdesivir or baricitinib due to renal insufficiency. He remains on antimicrobials and Decadron. Plan to obtain a repeat D-dimer. If elevated, will place the patient back on therapeutic heparin infusion. Ultimately, the patient would be a candidate for a trial of proning. In the meantime, nephrology to proceed with dialysis and volume removal, if feasible. 2. Acute on chronic kidney disease Likely secondary to acute Covid presentation/ATN. The patient has underlying chronic kidney disease secondary to polycystic kidney disease. Nephrology is currently following to assist with hemodialysis needs. 3. Polycystic kidney/chronic kidney disease stage IV/obesity/nonvaccinated status/depression Complicates care, management, recovery and prognosis. Continue current supportive measures as noted above. Ongoing goals of care discussion with the patient's family. TIME: 39 minutes of critical care time, independent of procedures, was spent addressing the patient's acute hypoxemic respiratory failure secondary to COVID-19 pneumonia, secondary bacterial pneumonia, acute on chronic kidney disease, review of all data and collaboration with care team. Subjective Subjective The patient was seen and examined at the bedside this morning. Events from the last 24 hours have been reviewed. Today is vent day #5. The patient remains on APRV mode of mechanical ventilation with a P high of 28 and FiO2 of 100%. Per nursing report, the patient did not tolerate dialysis yesterday as he became hypoxemic and hypotensive. The patient did require vasopressor support, which was able to be weaned off completely around midnight. The patient is currently sedated on fentanyl only. He is able to follow simple commands. The patient is currently documented to be overall net +10.8 L for the hospitalization. The patient remains on antimicrobials and Decadron. Potassium remains elevated at 6.8 with a BUN of 124 and creatinine of 7.5. Repeat D-dimer was elevated at 11.7. I did speak with the patient's daughter this morning and gave her an update on her father's clinical status. She and the remainder of her family are still considering a transition and CODE STATUS. Objective Data Objective Data The patient's most recent lab work, culture data and imaging studies have all been personally reviewed. Rapid coronavirus antigen testing was positive on April 23. It was positive for Streptococcus pneumonia and Haemophilus influenza. Vital Signs: Vital Signs Temp Pulse Resp BP Pulse Ox 100.1 F H 83 19 H 146/89 H 86 05/05/21 04:00 05/05/21 04:00 05/05/21 04:00 05/05/21 04:00 05/05/21 04:00 Oxygen Flow Rate (L/min) 60 Oxygen Delivery Method Mechanical Ventilator Weight: 118.9 kg Body Mass Index (BMI) 35.6 Intake & Output: Intake and Output for Last 24 Hours 05/03/21 05/04/21 05/05/21 23:59 23:59 23:59 Intake Total 1922.23 / 1940.26 1129.98 / 1143.43 61.37 / 61.37 Output Total 616 / 741 510 / 510 275 / 275 Balance 1306.23 / 1199.26 619.98 / 633.43 -213.63 / -213.63 Lab / Micro Data Attestation: I reviewed the patient's lab results. Result Diagrams: 05/05/21 04:00 05/05/21 04:00 Labs: Laboratory Results - last 24 hr 05/05/21 04:00: WBC 26.5 H, RBC 3.55 L, Hgb 10.0 L, Hct 31.0 L, MCV 87.3, MCH 28.2, MCHC 32.3, RDW Std Deviation 45.9 H, RDW Coeff of Martita 14.2, Plt Count 292, MPV 10.6, Immature Gran % (Auto) 2.000 H, Neut % (Auto) 89.5 H, Lymph % (Auto) 1.0 L, [place] % (Auto) 7.3, Eos % (Auto) 0.0, Baso % (Auto) 0.2, Absolute Neuts (auto) 23.7 H, Absolute Lymphs (auto) 0.26 L, Nucleated RBC % 0.2, Diff Path Review September05/05/21 04:00: Sodium 132 L, Potassium 6.8 H*, Chloride 94 L, Carbon Dioxide 20.0 L, Anion Gap 18 H, BUN 124 H*, Creatinine 7.53 H*, Estim Creat Clear Calc 13.71, Est GFR (MDRD) Af Amer 10 L, Est GFR (MDRD) Non-Af 8 L, BUN/Creatinine Ratio 16.5, Glucose 100, Calcium 8.2 L, Total Bilirubin 0.60, AST 51 H, ALT 29, Alkaline Phosphatase 131 H, Total Protein 7.0, Albumin 1.8 L, Globulin 5.2 H, Albumin/Globulin Ratio 0.3 L Micro: Microbiology 05/01/21 16:57 Sputum, Induced/Lukens Gram Stain - Final 05/01/21 16:57 Sputum, Induced/Lukens Respiratory Culture - Preliminary Streptococcus pneumoniae Haemophilus influenzae 04/29/21 04:00 Urine, Clean Catch Legionella Antigen - Final 04/29/21 04:00 Urine, Clean Catch Streptococcus pneumoniae Antigen (M - Final 04/23/21 12:22 Nasal Secretion SARS-CoV-2 Antigen (Rapid) - Final SARS-CoV-2 (COVID 19) ABG Data ABG results: ABG 05/04/21 05/04/21 05/05/21 13:11 16:27 05:51 Specimen Type ART ART ART Sample Site L Radial L Radial L Radial pH 7.13 L* 7.21 L 7.29 L Bicarbonate Actual 20.3 L 22.5 19.2 L Total CO2 22 24 20 Base Excess -9 L -5 L -7 L O2 Saturation 75 L 54 L 77 L O2 % 100 100 100 ABG pCO2 61.7 H 56.6 H 39.7 ABG pO2 53 L 35 L* 47 L Armen Test Positive Positive Positive Respiration Rate 12 12 12 O2 Delivery Device Adult Vent Adult Vent Adult Vent Vent Mode BiLevel BiLevel BiLevel POC Pressure Suppt 5 5 5 Crit Call To/Read Back Yes Yes Blood Gas Notified Whom Dr.Arthur Dobbs Clinical Comments pH 28 tH 4.5 Radiography Diagnostic Testing: Radiology Impression Chest X-Ray 05/04/21 06:20 IMPRESSION: Worsening bibasilar pneumonia. Electronically Signed: Sony Cohen MD at 6:34 EST Tel , Service support , Chest X-Ray 05/04/21 16:33 IMPRESSION: Life support lines and tubes in stable positions. Multifocal airspace opacities in the bilateral mid to lower lung zones, unchanged. No sizable pleural effusion. Trachea midline. No pneumothorax. Unchanged cardiac silhouette. Electronically Signed: Chuy Anderson MD at 18:41 EST Tel , Service support , Physical Exam Const Constitutional Narrative: Agonal type respirations on APRV General Appearance: ill appearing, intubated and patient mechanically ventilated Nutritional Appearance: morbidly obese HEENT normocephalic and head/scalp atraumatic Mouth: endotracheal tube in place and OG tube in place Eyes PERRL and conjunctivae normal Neck supple General: trachea midline Chest Chest Narrative: + Crepitus Resp Effort and Inspection: tachypneic Auscultation: diminished lung sounds Cardio regular rate and regular rhythm GI normal to inspection, nondistended, normoactive bowel sounds Extremity no clubbing, cyanosis or edema Skin no rashes or lesions noted Neuro Sensorium / Orientation: sedated on vent Charges/Coding Procedures Hospitalists Procedures: 74506 Critial Care 1st Hr
[2021-05-05] MEDS: TITRATION PARAMETER CHANGE 1 EACH IV ×2 (06:22→12:22)
--- NOTE | 2021-05-05 07:25 | PN.HOSP_ITS ---
Subjective Subjective Patient is a 45-year-old gentleman who presented with 2-week history of body aches cough and headache. Diagnosed with COVID-19. Patient hospital stay complicated by acute hypoxic respiratory failure resulting in patient being intubated. Hospital stay has also been complicated by acute renal failure. Objective Data Objective Data Vital Signs: Vital Signs Temp Pulse Resp BP Pulse Ox 100.6 F H 93 21 H 150/88 H 86 05/05/21 07:00 05/05/21 07:15 05/05/21 07:00 05/05/21 07:00 05/05/21 07:00 Oxygen Flow Rate (L/min) 60 Oxygen Delivery Method Mechanical Ventilator Weight: 118.9 kg Body Mass Index (BMI) 35.6 Intake & Output: Intake and Output for Last 24 Hours 05/03/21 05/04/21 05/05/21 23:59 23:59 23:59 Intake Total 1922.23 / 1940.26 1129.98 / 1143.43 99.70 / 99.70 Output Total 616 / 741 510 / 510 275 / 275 Balance 1306.23 / 1199.26 619.98 / 633.43 -175.30 / -175.30 Lab / Micro Data Result Diagrams: 05/05/21 04:00 05/05/21 04:00 Labs: Laboratory Results - last 24 hr 05/05/21 04:00: WBC 26.5 H, RBC 3.55 L, Hgb 10.0 L, Hct 31.0 L, MCV 87.3, MCH 28.2, MCHC 32.3, RDW Std Deviation 45.9 H, RDW Coeff of Martita 14.2, Plt Count 292, MPV 10.6, Immature Gran % (Auto) 2.000 H, Neut % (Auto) 89.5 H, Lymph % (Auto) 1.0 L, [place] % (Auto) 7.3, Eos % (Auto) 0.0, Baso % (Auto) 0.2, Absolute Neuts (auto) 23.7 H, Absolute Lymphs (auto) 0.26 L, Nucleated RBC % 0.2, Diff Path Review September05/05/21 04:00: Sodium 132 L, Potassium 6.8 H*, Chloride 94 L, Carbon Dioxide 20.0 L, Anion Gap 18 H, BUN 124 H*, Creatinine 7.53 H*, Estim Creat Clear Calc 13.71, Est GFR (MDRD) Af Amer 10 L, Est GFR (MDRD) Non-Af 8 L, BUN/Creatinine Ratio 16.5, Glucose 100, Calcium 8.2 L, Total Bilirubin 0.60, AST 51 H, ALT 29, Alkaline Phosphatase 131 H, Total Protein 7.0, Albumin 1.8 L, Globulin 5.2 H, Albumin/Globulin Ratio 0.3 L Micro: Microbiology 05/01/21 16:57 Sputum, Induced/Lukens Gram Stain - Final 05/01/21 16:57 Sputum, Induced/Lukens Respiratory Culture - Preliminary Streptococcus pneumoniae Haemophilus influenzae 04/29/21 04:00 Urine, Clean Catch Legionella Antigen - Final 04/29/21 04:00 Urine, Clean Catch Streptococcus pneumoniae Antigen (M - Final 04/23/21 12:22 Nasal Secretion SARS-CoV-2 Antigen (Rapid) - Final SARS-CoV-2 (COVID 19) ABG Data ABG results: ABG 05/04/21 05/04/21 05/05/21 13:11 16:27 05:51 Specimen Type ART ART ART Sample Site L Radial L Radial L Radial pH 7.13 L* 7.21 L 7.29 L Bicarbonate Actual 20.3 L 22.5 19.2 L Total CO2 22 24 20 Base Excess -9 L -5 L -7 L O2 Saturation 75 L 54 L 77 L O2 % 100 100 100 ABG pCO2 61.7 H 56.6 H 39.7 ABG pO2 53 L 35 L* 47 L Armen Test Positive Positive Positive Respiration Rate 12 12 12 O2 Delivery Device Adult Vent Adult Vent Adult Vent Vent Mode BiLevel BiLevel BiLevel POC Pressure Suppt 5 5 5 Crit Call To/Read Back Yes Yes Blood Gas Notified Whom Dr.Arthur Dobbs Clinical Comments pH 28 tH 4.5 Radiography Diagnostic Testing: Radiology Impression Chest X-Ray 05/04/21 16:33 IMPRESSION: Life support lines and tubes in stable positions. Multifocal airspace opacities in the bilateral mid to lower lung zones, unchanged. No sizable pleural effusion. Trachea midline. No pneumothorax. Unchanged cardiac silhouette. Electronically Signed: Chuy Anderson MD at 18:41 EST Tel , Service support , Physical Exam Narrative GENERAL: Patient on the vent HEENT: Atraumatic; EYES; Anicteric, Normal Conjunctiva NECK; supple, normal thyroid, RESPIRATORY: Diminished to auscultation CARDIOVASCULAR: Regular S1 S2, GI: soft, normoactive bowel sounds, : No Renal angle tenderness; EXTREMITIES: No edema, no clubbing, MUSCULOSKELETAL: no muscle waisting NEURO patient underwent SKIN: No Rash Assessment & Plan Assessment/Plan (1) Acute respiratory failure with hypoxia: (2) BEST (acute kidney injury): (3) COVID-19: PLAN: Patient is a 45-year-old gentleman who presented with 2-week history of body aches cough and headache. Diagnosed with COVID-19. Patient hospital stay complicated by acute hypoxic respiratory failure resulting in patient being intubated. Hospital stay has also been complicated by acute renal failure. 1. Acute hypoxic respiratory failure ?Secondary to COVID-19 pneumonia. Patient respiratory status deteriorated resulting in patient being intubated on 05/01/2021 2. COVID-19 pneumonia ?Complicated by acute hypoxic respiratory failure, pneumomediastinum and pneumothorax. Patient completed a course of Decadron. Currently on the vent. Patient is scheduled to come out of isolation on 05/05/2021. Was deemed not a candidate for remdesivir on admission due to impaired kidney function 3. Acute kidney injury with hyperkalemia ?Case was discussed with Dr. Varghese plan is for patient to undergo dialysis 4. Chronic kidney disease stage IV -Secondary to underlying polycystic kidney disease 5. Hyperkalemia ?Secondary to underlying acute kidney injury patient to undergo dialysis 6. Essential hypertension ?Patient was on amlodipine and losartan prior to being admitted 7. Dyslipidemia ?Patient was on pravastatin prior to his admission 8. Hypothyroidism ?On levothyroxine 9. DVT prophylaxis ?On systemic anticoagulation 10. Class II obesity ?With BMI of 35.9 Charges/Coding Visit Charges Inpatient E&M: 64347 Subs Hosp L3
[2021-05-05] MEDS: Ipratropium/Albuterol Sulfate 3 ML AMPUL.NEB INHALATION ×2 (07:44→19:26)
--- NOTE | 2021-05-05 08:24 | RAD_ITS ---
INDICATION: Change in respiratory status EXAMINATION/TECHNIQUE: X-RAY - XR Chest 1 View COMPARISON: 05/04/2021. FINDINGS: LINES/DEVICES: Endotracheal tube visualized with tip 3.6 cm above the ant. Gastric tube visualized with tip in the stomach. Right IJ dialysis catheter visualized with catheter tip in the SVC. Left IJ central line visualized with tip in the SVC. LUNGS: Prominence of the bronchovascular interstitial lung markings visualized bilaterally with the areas of patchy airspace opacification visualized in bilateral lung diaz with bilateral consolidations seen and air bronchograms, subtle lucency surrounding the mediastinum suggestive of pneumomediastinum is seen. Mild haziness overlying the left hemidiaphragm. MEDIASTINUM AND CARDIOVASCULAR STRUCTURES: Cardiac silhouette not enlarged. BONES AND SOFT TISSUES: Unremarkable. RAD/Chest 1 View (Portable) IMPRESSION: Bilateral airspace opacification is again visualized demonstrating no significant change in comparison to the prior study. Suggestion of pneumomediastinum again seen. Electronically Signed: Ajay Rodas MD at 9:45 EST Tel , Service support ,
--- NOTE | 2021-05-05 08:32 | PCM.PN.REN ---
Subjective Subjective intolerant to dialysis last night with hypotension in the 80-90's with fluid removal, hypoxemic with O2 sat 70's pO2 35 on ABG. BP improved today off pressors this morning with improved leukocytosis on iv antibiotics, improved respiratory acidosis on vent, sedate, paralyzed. Remains febrile. Will attempt dialysis today for hyperkalemia. Iv lasix for fluid mgmt. Unable to tolerate fluid removal on dialysis yesterday. Objective Data Objective Data Vital Signs: Vital Signs Temp Pulse Resp BP Pulse Ox 101.1 F H 94 26 H 143/92 H 85 05/05/21 08:00 05/05/21 08:00 05/05/21 08:00 05/05/21 08:00 05/05/21 08:00 Oxygen Flow Rate (L/min) 60 Oxygen Delivery Method Mechanical Ventilator Weight: 118.9 kg Body Mass Index (BMI) 35.6 Intake & Output: Intake and Output for Last 24 Hours 05/03/21 05/04/21 05/05/21 23:59 23:59 23:59 Intake Total 1922.23 / 1940.26 1129.98 / 1143.43 199.70 / 199.70 Output Total 616 / 741 510 / 510 275 / 275 Balance 1306.23 / 1199.26 619.98 / 633.43 -75.30 / -75.30 Lab / Micro Data Result Diagrams: 05/05/21 04:00 05/05/21 04:00 Labs: Laboratory Results - last 24 hr 05/05/21 04:00: WBC 26.5 H, RBC 3.55 L, Hgb 10.0 L, Hct 31.0 L, MCV 87.3, MCH 28.2, MCHC 32.3, RDW Std Deviation 45.9 H, RDW Coeff of Martita 14.2, Plt Count 292, MPV 10.6, Immature Gran % (Auto) 2.000 H, Neut % (Auto) 89.5 H, Lymph % (Auto) 1.0 L, [place] % (Auto) 7.3, Eos % (Auto) 0.0, Baso % (Auto) 0.2, Absolute Neuts (auto) 23.7 H, Absolute Lymphs (auto) 0.26 L, Nucleated RBC % 0.2, Diff Path Review September05/05/21 04:00: Sodium 132 L, Potassium 6.8 H*, Chloride 94 L, Carbon Dioxide 20.0 L, Anion Gap 18 H, BUN 124 H*, Creatinine 7.53 H*, Estim Creat Clear Calc 13.71, Est GFR (MDRD) Af Amer 10 L, Est GFR (MDRD) Non-Af 8 L, BUN/Creatinine Ratio 16.5, Glucose 100, Calcium 8.2 L, Total Bilirubin 0.60, AST 51 H, ALT 29, Alkaline Phosphatase 131 H, Total Protein 7.0, Albumin 1.8 L, Globulin 5.2 H, Albumin/Globulin Ratio 0.3 L Micro: Microbiology 05/01/21 16:57 Sputum, Induced/Lukens Gram Stain - Final 05/01/21 16:57 Sputum, Induced/Lukens Respiratory Culture - Preliminary Streptococcus pneumoniae Haemophilus influenzae 04/29/21 04:00 Urine, Clean Catch Legionella Antigen - Final 04/29/21 04:00 Urine, Clean Catch Streptococcus pneumoniae Antigen (M - Final 04/23/21 12:22 Nasal Secretion SARS-CoV-2 Antigen (Rapid) - Final SARS-CoV-2 (COVID 19) ABG Data ABG results: ABG 05/04/21 05/04/21 05/05/21 13:11 16:27 05:51 Specimen Type ART ART ART Sample Site L Radial L Radial L Radial pH 7.13 L* 7.21 L 7.29 L Bicarbonate Actual 20.3 L 22.5 19.2 L Total CO2 22 24 20 Base Excess -9 L -5 L -7 L O2 Saturation 75 L 54 L 77 L O2 % 100 100 100 ABG pCO2 61.7 H 56.6 H 39.7 ABG pO2 53 L 35 L* 47 L Armen Test Positive Positive Positive Respiration Rate 12 12 12 O2 Delivery Device Adult Vent Adult Vent Adult Vent Vent Mode BiLevel BiLevel BiLevel POC Pressure Suppt 5 5 5 Crit Call To/Read Back Yes Yes Blood Gas Notified Whom Dr.Arthur Dobbs Clinical Comments pH 28 tH 4.5 Radiography Diagnostic Testing: Radiology Impression Chest X-Ray 05/04/21 16:33 IMPRESSION: Life support lines and tubes in stable positions. Multifocal airspace opacities in the bilateral mid to lower lung zones, unchanged. No sizable pleural effusion. Trachea midline. No pneumothorax. Unchanged cardiac silhouette. Electronically Signed: Chuy Anderson MD at 18:41 EST Tel , Service support , Physical Exam Const Constitutional Narrative: sedate, paralyzed on vent, unresponsive General Appearance: patient mechanically ventilated Nutritional Appearance: obese Resp clear to auscultation bilaterally Cardio regular rate GI non-tender and non-distended Auscultation: hypoactive bowel sounds Palpation: soft Bladder / Kidney Exam: catheter in place Extremity no clubbing, cyanosis or edema Neuro Neuro Narrative: sedate Psych Psych Narrative: sedate Assessment & Plan Assessment/Plan (1) BEST (acute kidney injury): PLAN: acute on CKD Stage 4 due to COVID/ATN/sepsis syndrome. Supervised start of dialysis this morning, BP stable so far first 15min with 1L fluid removal set already at C profile on crit line.O2Sat 83% on vent. Spoke with pt rosamaria Johnson at bedside. DW dialysis nurse, hospitalist, [facility]. Obtain blood cx x2 sets on dialysis for fever. iv albumin x1 for low oncotic pressure, severe hypoalbuminemia albumin 0.9 to 1.8. (2) Acute respiratory failure with hypoxia: PLAN: due to COVID on vent, sedate. iv lasix, fluid removal as tolerated (3) CKD (chronic kidney disease), stage IV: PLAN: d/t PCKD. 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 (4) History of polycystic kidney disease: (5) COVID-19: PLAN: unvaccinated, continued hypoxia with worsening infiltrates on CXR, intubated, s/p decadron therapy (6) Hyperkalemia: PLAN: dialysis today run on 1K then 2K bath (7) Hyperphosphatemia: PLAN: add binders (8) Pneumococcal pneumonia (streptococcus pneumoniae pneumonia): PLAN: with H influenza started on iv antibiotics, still with febrile illness, leukocytosis slightly improved today. (9) Sepsis: PLAN: blood cx on dialysis today x2. Pressor support as needed.
[2021-05-05] MEDS: Sodium Bicarbonate 8.4% 50 ML Syringe 50 MEQ IV (08:49)
[2021-05-05] MEDS: Furosemide 100 MG/10 ML Vial 80 MG IV (08:49)
[2021-05-05] MEDS: Chlorhexidine 15 ML PO ×2 (08:50→21:19)
[2021-05-05] MEDS: Nystatin Powder 15gm Bottle 1 APPLIC TOPICAL ×2 (08:53→21:22)
[2021-05-05] MEDS: dexAMETHasone 4 MG/ML Vial 6 MG IV (09:01)
[2021-05-05] MEDS: Ceftriaxone 1 GM/50 ML BAG IV (09:24)
[2021-05-05] MEDS: Propofol 10MG/Ml 1,000 MG/100 ML Bottle 36 MG CONT INF ×2 (09:54→10:57)
[2021-05-05] MEDS: Succinylcholine Chloride 200 MG/10 ML Vial 100 MG IV (09:54)
[2021-05-05 09:55] LABS: Hepatitis B Surface Antigen Non-Reactive (Nonreactive)
[2021-05-05 10:10] LABS: D-Dimer Quantitative (DVT/PE) 11.71 FEU/ug/m (0.27-0.49)
[2021-05-05] MEDS: Acetaminophen 650 MG/20 ML UDC GT (10:12)
[2021-05-05 10:49] LABS: Partial Thromboplast Time 32.9 Seconds (24.1-36.2)
--- NOTE | 2021-05-05 12:56 | PCM.PN.ID ---
Physical Exam Narrative On vent, pressor, fever overnight Const no apparent distress Resp Auscultation: diminished lung sounds Cardio regular rate and regular rhythm GI soft to palpation, non-tender and non-distended Skin no rashes or lesions noted ID ID: Route of nutrition/ use of supplements: [] Nutritional Intake: [] IV Site: [] Bermudez Catheter: [] Assessment & Plan Assessment/Plan (1) COVID-19: PLAN: On vent, pressor, HD. Wbc better, still fever. On ceftriaxone for s.pneumo and h. flu in sputum. Completed dex. Will follow (2) Acute respiratory failure with hypoxia:
[2021-05-05] MEDS: Propofol 10MG/Ml 1,000 MG/100 ML Bottle 35.7 MG CONT INF ×4 (13:53→22:22)
[2021-05-05] MEDS: Heparin 10,000 UNITS/10 ML Vial IV (14:15)
--- NOTE | 2021-05-05 14:24 | CHAPLAIN ---
Type of Pastoral Visit ___ Initial Visit ___ Follow-up Visit ___ On-call Visit ___ General Patient Visit ___ Spiritual Assessment _x__ Family Conference ___ Bereavement ___ Rapid Response ___ Code Blue ___ Other (describe below) Pastoral Care Referral From ___ Patient _x__ Family ___ Nurse ___ Physician ___ Car Wash Attendant Automatic ___ Product Management Specialist ___ Other (describe below) Sacrament/Intervention _x__ Active listening ___ Anointing ___ Latter-Day ___ Bereavement ___ Communion ___ Cristina exploration ___ ___ Life review _x__ Prayer ___ Reconciliation ___ Sacrament of Sick _x__ Supportive presence ___ Wedding ___ Other (describe below) Pastoral Comments family is gathering to be available to patient when he is finished with dialysis; patient will be put in prone position to give more chance for recovery; if pt does not do well the family is prepared for dnrcc-a; family is asking for prayer and presence with pt when they go see him; prayed with family as they have gathered; checked on family in waiting area again later as they wait for dialysis to be completed
--- NOTE | 2021-05-05 14:41 | DIALYSIS ---
Pt tolerated 3.5HR HD tx fairly well, with some decrease in BP towards end of tx. Net UF -1300ml. Adequate BFR from RIJ CVC w/ lines reversed. See flow record for tx data.
--- NOTE | 2021-05-05 15:53 | NURSING ---
Per Dr. Perales able to take out of isolation at this time.
--- NOTE | 2021-05-05 16:11 | CHAPLAIN ---
Type of Pastoral Visit ___ Initial Visit ___ Follow-up Visit ___ On-call Visit ___ General Patient Visit ___ Spiritual Assessment ___ Family Conference ___ Bereavement ___ Rapid Response ___ Code Blue _x__ Other (describe below) Pastoral Care Referral From ___ Patient _x__ Family ___ Nurse ___ Physician ___ Meat Sales And Storage Manager ___ Corporation Pilot ___ Other (describe below) Sacrament/Intervention ___ Active listening ___ Anointing ___ Uatsdin ___ Bereavement ___ Communion ___ Cristina exploration ___ _x__ Life review _x__ Prayer ___ Reconciliation ___ Sacrament of Sick _x__ Supportive presence ___ Wedding ___ Other (describe below) Pastoral Comments at request of the family this scientific publications editor went into room as they did but to offer presence and prayer; pt will be moved to the prone position to increase his chances for improvement but family is aware that this is a critical time for pt and request prayer and presence
[2021-05-05 19:26] LABS: Partial Thromboplast Time 67.7 Seconds (24.1-36.2)
[2021-05-05] MEDS: 0.9% Saline Lock 10 ML Syringe IV (21:52)
[2021-05-06] VITALS (49 sets, daily range): BP systolic 90–113; BP diastolic 58–96; PULSE 59–95; RESP 15–19; TEMP 36.1–38.8; O2SAT 90–96
[2021-05-06] MEDS: Propofol 10MG/Ml 1,000 MG/100 ML Bottle 35.7 MG CONT INF ×9 (01:32→22:23)
[2021-05-06 04:20] LABS: Absolute Lymphocyte Count 0.61 X10^3/uL (0.83-4.51); Absolute Neutrophil Count 29.3 X10^3/uL (2.0-7.7); Basophil# 0.14 X10^3/uL; Basophil% 0.4 % (0-1); Hematocrit 28.6 % (40-54); Hemoglobin 9.1 g/dL (13.0-16.5); Lymphocyte # 0.61 X10^3/ul (0.83-4.51); Lymphocyte % 1.8 % (19-41); Mean Corp Hgb Conc 31.8 g/dL (32-36); Mean Corpuscular Hgb 28.1 pg (27.0-32.0); Mean Corpuscular Volume 88.3 fL (80-94); Mean Platelet Vol. 10.3 fl (6.2-12.0); Monocyte# 2.78 X10^3/uL; Monocyte% 8.1 % (0-10); NRBC Flagged by Analyzer 0.7 % (0-5); Neutrophil # 29.28 X10^3/uL (2.7-7.7); Neutrophil % 85.6 % (47-70); POSITIVE COUNT YES; POSITIVE DIFFERENTIAL YES; Platelet Count 316 K/mm3 (150-450); RBC Distribution Width CV 14.3 % (11.6-14.6); RBC Distribution Width SD 46.1 fl (35.1-43.9); Red Blood Count 3.24 M/mm3 (4.6-6.2); White Blood Count 34.2 K/mm3 (4.4-11.0)
[2021-05-06 04:41] LABS: ALB/GLOB Ratio 0.3 RATIO (0.9-2.4); AST(SGOT) 53 U/L (15-37); Alanine Aminotransfer ALT/SGPT 29 U/L (16-61); Albumin, Serum 1.5 g/dL (3.2-5.0); Alkaline Phosphatase 130 U/L (45-117); Anion Gap 17 (5-15); BUN 90 mg/dL (7-18); BUN/Creat Ratio 14.8 RATIO (10-20); Chloride 90 mmol/L (98-107); EST Glomerular Filtration Rate 11 mL/min (>60); Est Glom Filt Rate - Afr Amer 13 mL/min (>60); Estimated Creatinine Clearance 16.92 ml/min; Globulin 5.4 g/dL (2.2-4.2); Glucose 132 mg/dL (74-106); Potassium 6.6 mmol/L (3.5-5.1); Protein, Total 6.9 g/dL (6.4-8.2); Sodium Level 130 mmol/L (136-145)
[2021-05-06 04:42] LABS: Differential Indicated SCAN CRITERIA MET
[2021-05-06] MEDS: TITRATION PARAMETER CHANGE 1 EACH IV (05:34)
--- NOTE | 2021-05-06 06:02 | PCM.PN.INT ---
Assessment & Plan Assessment/Plan (1) Acute respiratory failure with hypoxia: (2) COVID-19: (3) CKD (chronic kidney disease), stage IV: (4) Hyperphosphatemia: (5) History of polycystic kidney disease: PLAN: RECOMMENDATIONS: 1. Continue assist control mode of mechanical ventilation. Wean FiO2/PEEP for saturations greater than 90%. 2. Continue proning trials. 3. Continue antimicrobials as ordered. 4. Continue heparin infusion as ordered. 5. Dialysis support with volume removal. 6. Continue appropriate GI prophylaxis. 7. Ongoing goals of care discussion with the patient's family. IMPRESSIONS: 1. Acute hypoxic respiratory failure secondary to COVID-19 combined with superimposed bacterial pneumonia The patient was initially admitted to the hospital on April 23. His hospital course has been complicated by worsening hypoxemia and renal insufficiency. The patient is currently intubated with refractory hypoxemia, necessitating prone positioning. The patient was not a candidate for remdesivir or baricitinib due to renal insufficiency. He has completed a course of Decadron and remains on antimicrobials. Continue heparin infusion for now, given elevated D-dimer. Nephrology to proceed with dialysis and volume removal, if feasible. 2. Acute on chronic kidney disease Likely secondary to acute Covid presentation/ATN. The patient has underlying chronic kidney disease secondary to polycystic kidney disease. Nephrology is currently following to assist with hemodialysis needs. 3. Polycystic kidney/chronic kidney disease stage IV/obesity/nonvaccinated status/depression Complicates care, management, recovery and prognosis. Continue current supportive measures as noted above. Ongoing goals of care discussion with the patient's family. TIME: 33 minutes of critical care time, independent of procedures, was spent addressing the patient's acute hypoxemic respiratory failure secondary to COVID-19 pneumonia, secondary bacterial pneumonia, acute on chronic kidney disease, review of all data and collaboration with care team. Subjective Subjective The patient was seen and examined at the bedside this morning. Events from the last 24 hours have been reviewed. Today is day #6. Yesterday, the patient was transition from APRV to assist control due to poor patient tolerance. Due to refractory hypoxemia, the patient was placed in prone position, which he has tolerated quite well. FiO2 has been weaned to 85% with a PEEP of 20. The patient remains sedated on fentanyl and propofol. He is hemodynamically stable on Levophed at 12 mcg/min. The patient remains on a continuous heparin infusion without any bleeding sequelae. He tolerated dialysis yesterday with 1.3 L of fluid removed. The patient is currently documented to be overall net +11.3 L for the hospitalization. White count is elevated at 34,000 this morning. Potassium is elevated this morning at 6.6. The patient remains on antimicrobials. He completed his treatment course of Decadron. Objective Data Objective Data The patient's most recent lab work, culture data and imaging studies have all been personally reviewed. Rapid coronavirus antigen testing was positive on April 23. Sputum culture was positive for Streptococcus pneumonia and Haemophilus influenza. Vital Signs: Vital Signs Temp Pulse Resp BP Pulse Ox 98.3 F 77 18 112/74 96 05/06/21 05:00 05/06/21 05:25 05/06/21 05:25 05/06/21 05:30 05/06/21 05:25 Oxygen Flow Rate (L/min) 60 Oxygen Delivery Method Mechanical Ventilator Weight: 118.9 kg Body Mass Index (BMI) 35.6 Intake & Output: Intake and Output for Last 24 Hours 05/04/21 05/05/21 05/06/21 23:59 23:59 23:59 Intake Total 1129.98 / 1143.43 1464.72 / 1548.52 588.24 / 588.24 Output Total 510 / 510 1775 / 1775 0 / 0 Balance 619.98 / 633.43 -310.28 / -226.48 588.24 / 588.24 Lab / Micro Data Attestation: I reviewed the patient's lab results. Result Diagrams: 05/06/21 04:10 05/06/21 04:10 Labs: Laboratory Results - last 24 hr 05/04/21 15:35: Hep Bs Antigen Non-Reactive 05/05/21 09:30: D-Dimer Quant (PE/DVT) 11.71 H* 05/05/21 09:30: APTT 32.9 05/05/21 19:03: APTT 67.7 H 05/06/21 01:05: APTT 81.0 H 05/06/21 04:10: Sodium 130 L, Potassium 6.6 H*, Chloride 90 L, Carbon Dioxide 23.0, Anion Gap 17 H, BUN 90 H, Creatinine 6.10 H, Estim Creat Clear Calc 16.92, Est GFR (MDRD) Af Amer 13 L, Est GFR (MDRD) Non-Af 11 L, BUN/Creatinine Ratio 14.8, Glucose 132 H, Calcium 8.0 L, Total Bilirubin 0.50, AST 53 H, ALT 29, Alkaline Phosphatase 130 H, Total Protein 6.9, Albumin 1.5 L, Globulin 5.4 H, Albumin/Globulin Ratio 0.3 L 05/06/21 04:10: WBC 34.2 H*, RBC 3.24 L, Hgb 9.1 L, Hct 28.6 L, MCV 88.3, MCH 28.1, MCHC 31.8 L, RDW Std Deviation 46.1 H, RDW Coeff of Martita 14.3, Plt Count 316, MPV 10.3, Immature Gran % (Auto) 4.100 H, Neut % (Auto) 85.6 H, Lymph % (Auto) 1.8 L, [place] % (Auto) 8.1, Eos % (Auto) 0.0, Baso % (Auto) 0.4, Absolute Neuts (auto) 29.3 H, Absolute Lymphs (auto) 0.61 L, Nucleated RBC % 0.7, Diff Path Review September Micro: Microbiology 05/01/21 16:57 Sputum, Induced/Lukens Gram Stain - Final 05/01/21 16:57 Sputum, Induced/Lukens Respiratory Culture - Final Streptococcus pneumoniae Haemophilus influenzae 04/29/21 04:00 Urine, Clean Catch Legionella Antigen - Final 04/29/21 04:00 Urine, Clean Catch Streptococcus pneumoniae Antigen (M - Final 04/23/21 12:22 Nasal Secretion SARS-CoV-2 Antigen (Rapid) - Final SARS-CoV-2 (COVID 19) Radiography Diagnostic Testing: Radiology Impression Chest X-Ray 05/05/21 08:24 IMPRESSION: Bilateral airspace opacification is again visualized demonstrating no significant change in comparison to the prior study. Suggestion of pneumomediastinum again seen. Electronically Signed: Ajay Rodas MD at 9:45 EST Tel , Service support , Physical Exam Const Constitutional Narrative: Currently in prone position. General Appearance: ill appearing, intubated and patient mechanically ventilated Nutritional Appearance: morbidly obese HEENT normocephalic and head/scalp atraumatic Mouth: endotracheal tube in place and OG tube in place Eyes PERRL and conjunctivae normal Neck supple General: trachea midline and CVC in place Chest Chest Narrative: + Crepitus Resp Auscultation: diminished lung sounds; Negative for rales, rhonchi or wheezes Cardio regular rate and regular rhythm GI normal to inspection, nondistended, normoactive bowel sounds Extremity no clubbing, cyanosis or edema Skin Wound Narrative: Sacral decubitus ulcer present Neuro Sensorium / Orientation: sedated on vent Charges/Coding Procedures Hospitalists Procedures: 08329 Critial Care 1st Hr
[2021-05-06] MEDS: Ipratropium/Albuterol Sulfate 3 ML AMPUL.NEB INHALATION ×2 (06:51→18:58)
--- NOTE | 2021-05-06 07:17 | PCM.PN.HOSP ---
Subjective Subjective Patient seen remains on the vent had to be proned during the evening. Vent settings adjusted by Dr. Serrano with intensive care. Currently on APRV. Patient WBC count continues to trend up 34.2 K as of this a.m. Objective Data Objective Data Vital Signs: Vital Signs Temp Pulse Resp BP Pulse Ox 97.8 F 67 16 110/72 93 05/06/21 07:00 05/06/21 07:00 05/06/21 07:00 05/06/21 07:00 05/06/21 07:00 Oxygen Flow Rate (L/min) 60 Oxygen Delivery Method Mechanical Ventilator Weight: 115.4 kg Body Mass Index (BMI) 35.6 Intake & Output: Intake and Output for Last 24 Hours 05/04/21 05/05/21 05/06/21 23:59 23:59 23:59 Intake Total 1129.98 / 1143.43 1464.72 / 1548.52 733.21 / 733.21 Output Total 510 / 510 1775 / 1775 0 / 0 Balance 619.98 / 633.43 -310.28 / -226.48 733.21 / 733.21 Lab / Micro Data Result Diagrams: 05/06/21 04:10 05/06/21 04:10 Labs: Laboratory Results - last 24 hr 05/04/21 15:35: Hep Bs Antigen Non-Reactive 05/05/21 09:30: D-Dimer Quant (PE/DVT) 11.71 H* 05/05/21 09:30: APTT 32.9 05/05/21 19:03: APTT 67.7 H 05/06/21 01:05: APTT 81.0 H 05/06/21 04:10: Sodium 130 L, Potassium 6.6 H*, Chloride 90 L, Carbon Dioxide 23.0, Anion Gap 17 H, BUN 90 H, Creatinine 6.10 H, Estim Creat Clear Calc 16.92, Est GFR (MDRD) Af Amer 13 L, Est GFR (MDRD) Non-Af 11 L, BUN/Creatinine Ratio 14.8, Glucose 132 H, Calcium 8.0 L, Total Bilirubin 0.50, AST 53 H, ALT 29, Alkaline Phosphatase 130 H, Total Protein 6.9, Albumin 1.5 L, Globulin 5.4 H, Albumin/Globulin Ratio 0.3 L 05/06/21 04:10: WBC 34.2 H*, RBC 3.24 L, Hgb 9.1 L, Hct 28.6 L, MCV 88.3, MCH 28.1, MCHC 31.8 L, RDW Std Deviation 46.1 H, RDW Coeff of Martita 14.3, Plt Count 316, MPV 10.3, Immature Gran % (Auto) 4.100 H, Neut % (Auto) 85.6 H, Lymph % (Auto) 1.8 L, [place] % (Auto) 8.1, Eos % (Auto) 0.0, Baso % (Auto) 0.4, Absolute Neuts (auto) 29.3 H, Absolute Lymphs (auto) 0.61 L, Nucleated RBC % 0.7, Diff Path Review September Micro: Microbiology 05/01/21 16:57 Sputum, Induced/Lukens Gram Stain - Final 05/01/21 16:57 Sputum, Induced/Lukens Respiratory Culture - Final Streptococcus pneumoniae Haemophilus influenzae 04/29/21 04:00 Urine, Clean Catch Legionella Antigen - Final 04/29/21 04:00 Urine, Clean Catch Streptococcus pneumoniae Antigen (M - Final 04/23/21 12:22 Nasal Secretion SARS-CoV-2 Antigen (Rapid) - Final SARS-CoV-2 (COVID 19) Radiography Diagnostic Testing: Radiology Impression Chest X-Ray 05/05/21 08:24 IMPRESSION: Bilateral airspace opacification is again visualized demonstrating no significant change in comparison to the prior study. Suggestion of pneumomediastinum again seen. Electronically Signed: Ajay Rodas MD at 9:45 EST Tel , Service support , Physical Exam Narrative GENERAL: Patient on the vent HEENT: Atraumatic; EYES; Anicteric, Normal Conjunctiva NECK; supple, normal thyroid, RESPIRATORY: Diminished to auscultation CARDIOVASCULAR: Regular S1 S2, GI: soft, normoactive bowel sounds, : No Renal angle tenderness; EXTREMITIES: No edema, no clubbing, MUSCULOSKELETAL: no muscle waisting NEURO patient underwent SKIN: No Rash Assessment & Plan Assessment/Plan (1) Acute respiratory failure with hypoxia: (2) BEST (acute kidney injury): (3) COVID-19: PLAN: Patient is a 45-year-old gentleman who presented with 2-week history of body aches cough and headache. Diagnosed with COVID-19. Patient hospital stay complicated by acute hypoxic respiratory failure resulting in patient being intubated. Hospital stay has also been complicated by acute renal failure. 1. Acute hypoxic respiratory failure ?Secondary to COVID-19 pneumonia. Patient respiratory status deteriorated resulting in patient being intubated on 05/01/2021 -05/06/2021;Patient seen remains on the vent had to be proned during the evening. Vent settings adjusted by Dr. Serrano with intensive car 2. COVID-19 pneumonia ?Complicated by acute hypoxic respiratory failure, pneumomediastinum and pneumothorax. Patient completed a course of Decadron. Currently on the vent. Patient is scheduled to come out of isolation on 05/05/2021. Was deemed not a candidate for remdesivir on admission due to impaired kidney function 3. Acute kidney injury with hyperkalemia ?Case was discussed with Dr. Varghese plan is for patient to undergo dialysis 4. Chronic kidney disease stage IV -Secondary to underlying polycystic kidney disease 5. Hyperkalemia ?Secondary to underlying acute kidney injury patient to undergo dialysis 6. Essential hypertension ?Patient was on amlodipine and losartan prior to being admitted 7. Dyslipidemia ?Patient was on pravastatin prior to his admission 8. Hypothyroidism ?On levothyroxine 9. DVT prophylaxis ?On systemic anticoagulation 10. Class II obesity ?With BMI of 35.9 Charges/Coding Visit Charges Inpatient E&M: 70799 Subs Hosp L3
[2021-05-06] MEDS: Nystatin Powder 15gm Bottle 1 APPLIC TOPICAL (08:06)
[2021-05-06] MEDS: Chlorhexidine 15 ML PO ×2 (08:36→22:30)
[2021-05-06] MEDS: Ceftriaxone 1 GM/50 ML BAG IV (08:36)
[2021-05-06 08:57] LABS: Partial Thromboplast Time 77.9 Seconds (24.1-36.2)
[2021-05-06 10:40] LABS: Pathologist Review Reviewed
[2021-05-06 10:41] LABS: Pathologist Review Reviewed
[2021-05-06 10:44] LABS: Pathologist Review Reviewed
--- NOTE | 2021-05-06 12:46 | PCM.PN.REN ---
Subjective Subjective seen on dialysis, B/C profile on crit line with 1L fluid removal. Remains on pressors, bradycardic, on vent, sedate. Objective Data Objective Data Vital Signs: Vital Signs Temp Pulse Resp BP Pulse Ox 97.3 F L 59 L 18 90/58 L 90 05/06/21 12:03 05/06/21 12:03 05/06/21 12:03 05/06/21 12:03 05/06/21 12:03 Oxygen Flow Rate (L/min) 60 Oxygen Delivery Method Mechanical Ventilator Weight: 115.4 kg Body Mass Index (BMI) 35.6 Intake & Output: Intake and Output for Last 24 Hours 05/04/21 05/05/21 05/06/21 23:59 23:59 23:59 Intake Total 1129.98 / 1143.43 1464.72 / 1548.52 1362.89 / 1362.89 Output Total 510 / 510 1775 / 1775 175 / 175 Balance 619.98 / 633.43 -310.28 / -226.48 1187.89 / 1187.89 Lab / Micro Data Result Diagrams: 05/06/21 04:10 05/06/21 04:10 Labs: Laboratory Results - last 24 hr 05/03/21 04:15: Diff Path Review Reviewed 05/04/21 03:50: Diff Path Review Reviewed 05/05/21 04:00: Diff Path Review Reviewed 05/05/21 19:03: APTT 67.7 H 05/06/21 01:05: APTT 81.0 H 05/06/21 04:10: Sodium 130 L, Potassium 6.6 H*, Chloride 90 L, Carbon Dioxide 23.0, Anion Gap 17 H, BUN 90 H, Creatinine 6.10 H, Estim Creat Clear Calc 16.92, Est GFR (MDRD) Af Amer 13 L, Est GFR (MDRD) Non-Af 11 L, BUN/Creatinine Ratio 14.8, Glucose 132 H, Calcium 8.0 L, Total Bilirubin 0.50, AST 53 H, ALT 29, Alkaline Phosphatase 130 H, Total Protein 6.9, Albumin 1.5 L, Globulin 5.4 H, Albumin/Globulin Ratio 0.3 L 05/06/21 04:10: WBC 34.2 H*, RBC 3.24 L, Hgb 9.1 L, Hct 28.6 L, MCV 88.3, MCH 28.1, MCHC 31.8 L, RDW Std Deviation 46.1 H, RDW Coeff of Martita 14.3, Plt Count 316, MPV 10.3, Immature Gran % (Auto) 4.100 H, Neut % (Auto) 85.6 H, Lymph % (Auto) 1.8 L, [place] % (Auto) 8.1, Eos % (Auto) 0.0, Baso % (Auto) 0.4, Absolute Neuts (auto) 29.3 H, Absolute Lymphs (auto) 0.61 L, Nucleated RBC % 0.7, Diff Path Review September05/06/21 08:30: APTT 77.9 H Micro: Microbiology 05/01/21 16:57 Sputum, Induced/Lukens Gram Stain - Final 05/01/21 16:57 Sputum, Induced/Lukens Respiratory Culture - Final Streptococcus pneumoniae Haemophilus influenzae 04/29/21 04:00 Urine, Clean Catch Legionella Antigen - Final 04/29/21 04:00 Urine, Clean Catch Streptococcus pneumoniae Antigen (M - Final 04/23/21 12:22 Nasal Secretion SARS-CoV-2 Antigen (Rapid) - Final SARS-CoV-2 (COVID 19) Physical Exam Const General Appearance: patient mechanically ventilated Resp clear to auscultation bilaterally Cardio Rate: bradycardia GI non-tender and non-distended GI Narrative: TF initiated Palpation: soft Narrative: oliguric Bladder / Kidney Exam: catheter in place Extremity no clubbing, cyanosis or edema Assessment & Plan Assessment/Plan (1) BEST (acute kidney injury): PLAN: acute on CKD Stage 4 due to COVID/ATN/sepsis syndrome. dialysis today for persistent hyperkalemia, oliguric. Remains on vent, sedate. Spoke with pt rosamaria Johnson at bedside. (2) Acute respiratory failure with hypoxia: PLAN: on vent, sedate. (3) CKD (chronic kidney disease), stage IV: PLAN: d/t PCKD. 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 (4) History of polycystic kidney disease: (5) COVID-19: PLAN: unvaccinated, continued hypoxia with worsening infiltrates on CXR, intubated, s/p decadron therapy (6) Hyperkalemia: PLAN: dialysis today run on 1K then 2K bath (7) Hyperphosphatemia: PLAN: add binders (8) Pneumococcal pneumonia (streptococcus pneumoniae pneumonia): PLAN: with H influenza started on iv antibiotics, still with febrile illness, leukocytosis slightly improved today. (9) Sepsis: PLAN: blood cx pending. Pressor support as needed.
[2021-05-06 15:08] LABS: Partial Thromboplast Time 80.1 Seconds (24.1-36.2)
--- NOTE | 2021-05-06 15:38 | DIALYSIS ---
HD x 4 hours complete. Tolerated fairly well. UF of 1000ml. Ran on 1k bath x 2 hours and 2k bath for 2 hours. Used temporary dialysis catheter. Catheter is positional. Lumens closed with heparin per fill volume. Caps placed. Dressing is intact. Report was given to LETY Siegel
[2021-05-06 22:52] LABS: Partial Thromboplast Time 72.8 Seconds (24.1-36.2)
[2021-05-07] VITALS (44 sets, daily range): BP systolic 83–114; BP diastolic 52–70; PULSE 65–101; RESP 16–23; TEMP 36.9–38.6; O2SAT 87–100
[2021-05-07] MEDS: Nystatin Powder 15gm Bottle 1 APPLIC TOPICAL ×3 (01:28→21:39)
[2021-05-07] MEDS: Propofol 10MG/Ml 1,000 MG/100 ML Bottle 35.7 MG CONT INF ×9 (01:30→23:24)
[2021-05-07] MEDS: CHLORHEXIDINE GLUC 2% CLOTH 1 EACH TOWELETTE TOPICAL (02:26)
[2021-05-07 04:59] LABS: Hematocrit 26.8 % (40-54); Hemoglobin 8.7 g/dL (13.0-16.5); Mean Corp Hgb Conc 32.5 g/dL (32-36); Mean Corpuscular Hgb 28.3 pg (27.0-32.0); Mean Corpuscular Volume 87.3 fL (80-94); Mean Platelet Vol. 9.8 fl (6.2-12.0); POSITIVE COUNT YES; POSITIVE DIFFERENTIAL YES; POSITIVE MORPHOLOGY YES; Platelet Count 247 K/mm3 (150-450); RBC Distribution Width CV 14.1 % (11.6-14.6); RBC Distribution Width SD 44.8 fl (35.1-43.9); Red Blood Count 3.07 M/mm3 (4.6-6.2); White Blood Count 28.8 K/mm3 (4.4-11.0)
[2021-05-07 05:04] LABS: Differential Indicated MANUAL DIFF
[2021-05-07 05:22] LABS: Partial Thromboplast Time 67.5 Seconds (24.1-36.2)
--- NOTE | 2021-05-07 05:36 | PN.CC_ITS ---
Assessment & Plan Assessment/Plan (1) Acute respiratory failure with hypoxia: (2) COVID-19: (3) CKD (chronic kidney disease), stage IV: (4) Hyperphosphatemia: (5) History of polycystic kidney disease: PLAN: RECOMMENDATIONS: 1. Continue assist control mode of mechanical ventilation. Wean FiO2/PEEP for saturations greater than 90%. 2. Continue proning trials. 3. Continue antimicrobials as ordered. 4. Continue heparin infusion as ordered. 5. Dialysis support with volume removal. 6. Continue appropriate GI prophylaxis. 7. Tube feeds as tolerated. 8. Wean Levophed to maintain a mean arterial pressure at or above 65 mmHg. IMPRESSIONS: 1. Acute hypoxic respiratory failure secondary to COVID-19 combined with superimposed bacterial pneumonia The patient was initially admitted to the hospital on April 23. His hospital course has been complicated by worsening hypoxemia and renal insufficiency. The patient is currently intubated with refractory hypoxemia, necessitating prone positioning. The patient was not a candidate for remdesivir or baricitinib due to renal insufficiency. He has completed a course of Decadron and remains on antimicrobials. Continue heparin infusion for now, given elevated D-dimer. Nephrology to proceed with dialysis and volume removal, if feasible. 2. Acute on chronic kidney disease Likely secondary to acute Covid presentation/ATN. The patient has underlying chronic kidney disease secondary to polycystic kidney disease. Nephrology is currently following to assist with hemodialysis needs. 3. Septic shock Continue vasopressor support to maintain a mean arterial pressure at or above 65 mmHg. Continue antimicrobials as ordered. 4. Polycystic kidney/chronic kidney disease stage IV/obesity/nonvaccinated status/depression Complicates care, management, recovery and prognosis. Continue current sup portive measures as noted above. Ongoing goals of care discussion with the patient's family. TIME: 32 minutes of critical care time, independent of procedures, was spent ad dressing the patient's acute hypoxemic respiratory failure secondary to COVID-19 pneumonia, secondary bacterial pneumonia, acute on chronic kidney disease, septic shock, review of all data and collaboration with care team. Subjective Subjective The patient was seen and examined at the bedside this morning. Events from the last 24 hours have been reviewed. Today is vent day #7. He is currently afebrile and hemodynamically stable on Levophed at 5 mcg/min. The patient remains on assist control mode mechanical ventilation with an FiO2 requirement of 70% and PEEP of 18. He is currently in prone position. The patient tolerated dialysis yesterday with 1 L of fluid removed. He remains sedated on propofol and fentanyl. The patient remains on a continuous heparin infusion without any bleeding sequelae. The patient is currently documented to be overall net +12.7 L for the hospitalization. The patient remains on antimicrobials. Objective Data Objective Data The patient's most recent lab work, culture data and imaging studies have all be en personally reviewed. Rapid coronavirus antigen testing was positive on April 23. Sputum culture was positive for Streptococcus pneumonia and Haemophilus influenza. Vital Signs: Vital Signs Temp Pulse Resp BP Pulse Ox 98.5 F 69 18 110/64 92 05/07/21 05:00 05/07/21 05:00 05/07/21 05:00 05/07/21 05:15 05/07/21 05:00 Oxygen Flow Rate (L/min) 60 Oxygen Delivery Method Mechanical Ventilator Weight: 112.8 kg Body Mass Index (BMI) 35.6 Intake & Output: Intake and Output for Last 24 Hours 05/05/21 05/06/21 05/07/21 23:59 23:59 23:59 Intake Total 1464.72 / 1548.52 2431.70 / 2454.70 464.77 / 464.77 Output Total 1775 / 1775 1175 / 1175 Balance -310.28 / -226.48 1256.70 / 1279.70 464.77 / 464.77 Lab / Micro Data Attestation: I reviewed the patient's lab results. Result Diagrams: 05/07/21 04:30 05/07/21 04:30 Labs: Laboratory Results - last 24 hr 05/03/21 04:15: Diff Path Review Reviewed 05/04/21 03:50: Diff Path Review Reviewed 05/05/21 04:00: Diff Path Review Reviewed 05/06/21 08:30: APTT 77.9 H 05/06/21 14:30: APTT 80.1 H 05/06/21 22:30: APTT 72.8 H 05/07/21 04:30: WBC 28.8 H, RBC 3.07 L, Hgb 8.7 L, Hct 26.8 L, MCV 87.3, MCH 28.3, MCHC 32.5, RDW Std Deviation 44.8 H, RDW Coeff of Martita 14.1, Plt Count 247, MPV 9.8, Neut % (Auto) Not Reportable 05/07/21 04:30: APTT 67.5 H Micro: Microbiology 05/01/21 16:57 Sputum, Induced/Lukens Gram Stain - Final 05/01/21 16:57 Sputum, Induced/Lukens Respiratory Culture - Final Streptococcus pneumoniae Haemophilus influenzae 04/29/21 04:00 Urine, Clean Catch Legionella Antigen - Final 04/29/21 04:00 Urine, Clean Catch Streptococcus pneumoniae Antigen (M - Final 04/23/21 12:22 Nasal Secretion SARS-CoV-2 Antigen (Rapid) - Final SARS-CoV-2 (COVID 19) Physical Exam Const no apparent distress Constitutional Narrative: Currently in prone position. General Appearance: intubated and patient mechanically ventilated Nutritional Appearance: morbidly obese HEENT normocephalic and head/scalp atraumatic Mouth: endotracheal tube in place and OG tube in place Eyes PERRL and conjunctivae normal Neck supple General: trachea midline and CVC in place Chest Chest Narrative: + Crepitus Resp Auscultation: rales and diminished lung sounds; Negative for rhonchi or wheezes Cardio regular rate and regular rhythm GI normal to inspection, nondistended, normoactive bowel sounds Extremity no clubbing, cyanosis or edema Skin Wound Narrative: Sacral decubitus ulcer present Neuro Sensorium / Orientation: sedated on vent Charges/Coding Procedures Hospitalists Procedures: 17611 Critial Care 1st Hr
[2021-05-07 05:54] LABS: ALB/GLOB Ratio 0.3 RATIO (0.9-2.4); AST(SGOT) 54 U/L (15-37); Alanine Aminotransfer ALT/SGPT 26 U/L (16-61); Albumin, Serum 1.5 g/dL (3.2-5.0); Alkaline Phosphatase 119 U/L (45-117); Anion Gap 13 (5-15); BUN 54 mg/dL (7-18); BUN/Creat Ratio 13.6 RATIO (10-20); Calcium,Total 7.9 mg/dL (8.5-10.1); Chloride 91 mmol/L (98-107); Creatinine, Serum 3.98 mg/dL (0.70-1.30); EST Glomerular Filtration Rate 17 mL/min (>60); Est Glom Filt Rate - Afr Amer 21 mL/min (>60); Estimated Creatinine Clearance 25.93 ml/min; Glucose 118 mg/dL (74-106); Potassium 4.4 mmol/L (3.5-5.1); Protein, Total 6.5 g/dL (6.4-8.2); Sodium Level 130 mmol/L (136-145)
[2021-05-07 06:22] LABS: Absolute Neutrophil Count 23.3 X10^3/uL (2.0-7.7)
[2021-05-07 06:23] LABS: Absolute Lymphocyte Count 1.73 X10^3/uL (0.83-4.51); Eosinophil 1 % (0-5); Lymphocyte 3 % (19-41); Metamyelocyte 1 % (0-1); Monocyte 8 % (0-10); Myelocyte 1 % (0-0); Neutrophil-Band 9 % (0-5); Neutrophil-Segmented 72 % (47-70); Platelet Estimate ADEQUATE (ADEQ); Promyelocyte 2 % (0-0); Red Cell Morphology NORM C+C NORMAL (NORM C&C); Total Cells Counted 100 (MANUAL DIFF)
[2021-05-07] MEDS: Ipratropium/Albuterol Sulfate 3 ML AMPUL.NEB INHALATION ×3 (07:19→18:56)
--- NOTE | 2021-05-07 07:38 | PN.HOSP_ITS ---
Subjective Subjective The patient is out of isolation. Low-grade temperature, T-max 99.4 Fahrenheit. Still intubated on ventilator Objective Data Objective Data Vital Signs: Vital Signs Temp Pulse Resp BP Pulse Ox 98.4 F 77 18 107/69 95 05/07/21 07:00 05/07/21 07:20 05/07/21 07:20 05/07/21 07:00 05/07/21 07:20 Oxygen Flow Rate (L/min) 60 Oxygen Delivery Method Mechanical Ventilator Weight: 248 lb 10.903 oz Body Mass Index (BMI) 35.6 Intake & Output: Intake and Output for Last 24 Hours 05/05/21 05/06/21 05/07/21 23:59 23:59 23:59 Intake Total 1464.72 / 1548.52 2431.70 / 2454.70 680.63 / 680.63 Output Total 1775 / 1775 1175 / 1175 Balance -310.28 / -226.48 1256.70 / 1279.70 680.63 / 680.63 Lab / Micro Data Result Diagrams: 05/07/21 04:30 05/07/21 04:30 Labs: Laboratory Results - last 24 hr 05/03/21 04:15: Diff Path Review Reviewed 05/04/21 03:50: Diff Path Review Reviewed 05/05/21 04:00: Diff Path Review Reviewed 05/06/21 08:30: APTT 77.9 H 05/06/21 14:30: APTT 80.1 H 05/06/21 22:30: APTT 72.8 H 05/07/21 04:30: WBC 28.8 H, RBC 3.07 L, Hgb 8.7 L, Hct 26.8 L, MCV 87.3, MCH 28.3, MCHC 32.5, RDW Std Deviation 44.8 H, RDW Coeff of Martita 14.1, Plt Count 247, MPV 9.8, Neut % (Auto) Not Reportable, Absolute Neuts (auto) 23.3 H, Absolute Lymphs (auto) 1.73, Total Counted 100, Neutrophils % (Manual) 72 H, Band Neutrophils % 9 H, Lymphocytes % (Manual) 3 L, Monocytes % (Manual) 8, Eosinophils % (Manual) 1, Metamyelocytes % 1, Myelocytes % 1 H, Promyelocytes % 2 H, Diff Path Review May , Platelet Estimate ADEQUATE, RBC Morphology NORM C+C 05/07/21 04:30: Sodium 130 L, Potassium 4.4, Chloride 91 L, Carbon Dioxide 26.0, Anion Gap 13, BUN 54 H, Creatinine 3.98 H, Estim Creat Clear Calc 25.93, Est GFR (MDRD) Af Amer 21 L, Est GFR (MDRD) Non-Af 17 L, BUN/Creatinine Ratio 13.6, Glucose 118 H, Calcium 7.9 L, Total Bilirubin 0.50, AST 54 H, ALT 26, Alkaline Phosphatase 119 H, Total Protein 6.5, Albumin 1.5 L, Globulin 5.0 H, Albumin/Globulin Ratio 0.3 L 05/07/21 04:30: APTT 67.5 H Micro: Microbiology 05/01/21 16:57 Sputum, Induced/Lukens Gram Stain - Final 05/01/21 16:57 Sputum, Induced/Lukens Respiratory Culture - Final Streptococcus pneumoniae Haemophilus influenzae 04/29/21 04:00 Urine, Clean Catch Legionella Antigen - Final 04/29/21 04:00 Urine, Clean Catch Streptococcus pneumoniae Antigen (M - Final 04/23/21 12:22 Nasal Secretion SARS-CoV-2 Antigen (Rapid) - Final SARS-CoV-2 (COVID 19) Physical Exam Narrative General: Sedated on ventilator. HEENT: Atraumatic, PERRLA, EOMI, Normocephalic Oral: ET and OG tube Neck: Supple, No JVD, Negative Carotid Bruits Lungs: Air entry diminished in bilateral lung bases. On vent support. Cardiovascular: Sinus rhythm, Normal S1, Normal S2, No murmurs Abdomen: Bowel Sounds sluggish, soft, Non Tender, Non-Distended : No renal angle tenderness. No suprapubic tenderness. Extremities: No edema, Capillary Refill Less than 3 Seconds Skin: No rashes, No breakdown Musculoskeletal: No Tenderness to Palpation of Joints or Extremities. Neurological: Sedated. Psych/Mental Status: Assessment & Plan Assessment/Plan (1) Acute respiratory failure with hypoxia: (2) BEST (acute kidney injury): (3) COVID-19: PLAN: Patient is a 45-year-old gentleman who presented with 2-week history of body aches cough and headache. Diagnosed with COVID-19. Patient hospital stay complicated by acute hypoxic respiratory failure resulting in patient being intubated. Hospital stay has also been complicated by acute renal failure. 1. Acute hypoxic respiratory failure due to bilateral COVID-19 pneumonia Patient respiratory status deteriorated resulting in patient being intubated on 05/01/202105/07: On AC mode of ventilator. Intermittent proning trial as tolerated by patient. 2. COVID-19 pneumonia with bacterial superinfection resulting into septic shock ?Complicated by acute hypoxic respiratory failure, pneumomediastinum and pneumothorax. Patient completed a course of Decadron. Patient out of isolation on 05/06/2021. Was deemed not a candidate for remdesivir on admission due to impaired kidney function. Sputum culture growing Haemophilus influenzae and Streptococcus pneumoniae. On IV ceftriaxone Wean Levophed to keep MAP above or equal 65 mmHg 3. 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 Chronic kidney disease stage IV -Secondary to underlying polycystic kidney disease 5. Hyperkalemia ?Secondary to underlying acute kidney injury patient to undergo dialysis 6. Essential hypertension 7. Dyslipidemia ?Patient was on pravastatin prior to his admission 8. Hypothyroidism ?On levothyroxine 9. DVT prophylaxis ?On systemic anticoagulation, heparin drip. 10. Class II obesity ?With BMI of 35.9 Active Medications Acetaminophen (Acetaminophen 650 Mg/20 Ml Udc) 650 mg GT Q6H PRN PRN PRN Reason: Pain 1-10 or Fever Last Admin: 05/05/21 10:12 Dose: 650 mg Documented by: Albuterol/Ipratropium (Ipratropium/Albuterol Sulfate 3 Ml Ampul.Neb) 3 ml INHALATION Q6HWA.RT MICHAEL Last Admin: 05/07/21 07:19 Dose: 3 ml Documented by: Chlorhexidine Gluconate (Chlorhexidine 15 Ml) 15 ml PO BID MICHAEL Last Admin: 05/07/21 09:30 Dose: 15 ml Documented by: Heparin Sodium (Porcine) (Heparin Injection (Vial) 5,000 Unit/Ml Vial) 0 unit IV UD PRN; Protocol PRN Reason: dose adjustment Heparin Sodium (Porcine) (Heparin 10,000 Units/10 Ml Vial) 2,800 units IV X1 PRN PRN Reason: DIALYSIS Sodium Chloride () 250 mls @ 15 mls/hr IV .[id number] PRN PRN Reason: Saline Flush Last Infusion: 05/07/21 12:21 Dose: 15 mls/hr Documented by: Sodium Chloride () 250 mls @ 15 mls/hr IV .[id number] PRN PRN Reason: Additional IVPB Infusion Propofol (Diprivan) 1,000 mg in 100 mls @ 7.134 mls/hr CONT INF .Q12H MICHAEL; Protocol Last Admin: 05/07/21 12:27 Dose: 50 mcg/kg/min, 35.7 mls/hr Documented by: Fentanyl Citrate 1,000 mcg/ (Sodium Chloride) 100 mls @ 2.5 mls/hr CONT INF .Q40H MICHAEL; Protocol Last Titration: 05/07/21 12:00 Dose: 200 mcg/hr, 20 mls/hr Documented by: Sodium Chloride () 250 mls @ 15 mls/hr IV .[id number] PRN PRN Reason: Saline Flush Sodium Chloride () 250 mls @ 15 mls/hr IV .[id number] PRN PRN Reason: Additional IVPB Infusion Ceftriaxone Sodium (Rocephin) 1 gm in 50 mls @ 100 mls/hr IV Q24 MICHAEL Last Infusion: 05/07/21 11:51 Dose: Infused Documented by: Pantoprazole Sodium 40 mg/ (Sodium Chloride) 110 mls @ 330 mls/hr IV Q24 MICHAEL Last Infusion: 05/07/21 09:59 Dose: Infused Documented by: Heparin Sodium (Porcine) 25, (000 unit/ Dextrose) 250 mls @ 16 mls/hr CONT INF .[id number] [facility]; Protocol Last Titration: 05/07/21 12:00 Dose: 1,600 units/hr, 16 mls/hr Documented by: Norepinephrine Bitartrate 8 mg (/ Sodium Chloride) 250 mls @ 9.375 mls/hr CONT INF .[id number] [facility]; Protocol Last Titration: 05/07/21 12:00 Dose: 5 mcg/min, 9.4 mls/hr Documented by: Enteral Nutritional Formula (Nepro Carb Steady) 1,000 mls @ 50 mls/hr GT .Q20H MICHAEL Last Admin: 05/07/21 06:03 Dose: Not Given Documented by: Nystatin (Nystatin Powder 15gm Bottle) 1 applic TOPICAL BID [facility]; Protocol Last Admin: 05/07/21 09:30 Dose: 1 applic Documented by: Senna/Docusate Sodium (Senna/Docusate Sodium 1 Tablet) 2 tablet GT BID MICHAEL Last Admin: 05/07/21 10:27 Dose: 2 tablet Documented by: Sodium Chloride (0.9% Saline Lock 10 Ml Syringe) 10 - 40 ml IV UD PRN PRN Reason: SALINE FLUSH Last Admin: 05/05/21 21:52 Dose: 40 ml Documented by: Sodium Chloride (0.9% Normal Saline 100 Ml Iv.Soln.) 200 ml IV X1 PRN PRN Reason: to maintain SBP >90 during Dialysis Charges/Coding Visit Charges Inpatient E&M: 12887 Subs Hosp L3
[2021-05-07] MEDS: Chlorhexidine 15 ML PO ×2 (09:30→21:38)
[2021-05-07 10:11] LABS: Pathologist Review Reviewed
[2021-05-07] MEDS: Senna/Docusate Sodium 1 Tablet 2 TABLET GT ×2 (10:27→21:38)
[2021-05-07] MEDS: Ceftriaxone 1 GM/50 ML BAG IV (10:27)
--- NOTE | 2021-05-07 11:57 | PN.RENAL_ITS ---
Subjective Subjective sedate on vent, unresponsive. Labs improved after 4h dialysis yesterday. pt dtr at bedside. Objective Data Objective Data Vital Signs: Vital Signs Temp Pulse Resp BP Pulse Ox 98.4 F 75 19 H 91/58 L 90 05/07/21 08:00 05/07/21 11:23 05/07/21 11:23 05/07/21 10:00 05/07/21 11:23 Oxygen Flow Rate (L/min) 60 Oxygen Delivery Method Mechanical Ventilator Weight: 112.8 kg Body Mass Index (BMI) 35.6 Intake & Output: Intake and Output for Last 24 Hours 05/05/21 05/06/21 05/07/21 23:59 23:59 23:59 Intake Total 1464.72 / 1548.52 2431.70 / 2454.70 1143.17 / 1143.17 Output Total 1775 / 1775 1175 / 1175 Balance -310.28 / -226.48 1256.70 / 1279.70 1143.17 / 1143.17 Lab / Micro Data Result Diagrams: 05/07/21 04:30 05/07/21 04:30 Labs: Laboratory Results - last 24 hr 05/06/21 04:10: Diff Path Review Reviewed 05/06/21 14:30: APTT 80.1 H 05/06/21 22:30: APTT 72.8 H 05/07/21 04:30: WBC 28.8 H, RBC 3.07 L, Hgb 8.7 L, Hct 26.8 L, MCV 87.3, MCH 28.3, MCHC 32.5, RDW Std Deviation 44.8 H, RDW Coeff of Martita 14.1, Plt Count 247, MPV 9.8, Neut % (Auto) Not Reportable, Absolute Neuts (auto) 23.3 H, Absolute Lymphs (auto) 1.73, Total Counted 100, Neutrophils % (Manual) 72 H, Band Neutrophils % 9 H, Lymphocytes % (Manual) 3 L, Monocytes % (Manual) 8, Eosinophils % (Manual) 1, Metamyelocytes % 1, Myelocytes % 1 H, Promyelocytes % 2 H, Diff Path Review May , Platelet Estimate ADEQUATE, RBC Morphology NORM C+C 05/07/21 04:30: Sodium 130 L, Potassium 4.4, Chloride 91 L, Carbon Dioxide 26.0, Anion Gap 13, BUN 54 H, Creatinine 3.98 H, Estim Creat Clear Calc 25.93, Est GFR (MDRD) Af Amer 21 L, Est GFR (MDRD) Non-Af 17 L, BUN/Creatinine Ratio 13.6, Glucose 118 H, Calcium 7.9 L, Total Bilirubin 0.50, AST 54 H, ALT 26, Alkaline Phosphatase 119 H, Total Protein 6.5, Albumin 1.5 L, Globulin 5.0 H, Albumin/Globulin Ratio 0.3 L 05/07/21 04:30: APTT 67.5 H Micro: Microbiology 05/01/21 16:57 Sputum, Induced/Lukens Gram Stain - Final 05/01/21 16:57 Sputum, Induced/Lukens Respiratory Culture - Final Streptococcus pneumoniae Haemophilus influenzae 04/29/21 04:00 Urine, Clean Catch Legionella Antigen - Final 04/29/21 04:00 Urine, Clean Catch Streptococcus pneumoniae Antigen (M - Final 04/23/21 12:22 Nasal Secretion SARS-CoV-2 Antigen (Rapid) - Final SARS-CoV-2 (COVID 19) Physical Exam Const General Appearance: patient mechanically ventilated Resp clear to auscultation bilaterally Cardio regular rate GI non-tender and non-distended Palpation: soft Extremity no clubbing, cyanosis or edema Neuro Neuro Narrative: sedate Assessment & Plan Assessment/Plan (1) BEST (acute kidney injury): PLAN: acute on CKD Stage 4 due to COVID/ATN/sepsis syndrome. hold dialysis today. labs improved. blood cx no growth so far. Still on vent with leukocytosis on iv antibx. (2) Acute respiratory failure with hypoxia: PLAN: on vent, sedate. (3) CKD (chronic kidney disease), stage IV: PLAN: d/t PCKD. 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 (4) History of polycystic kidney disease: (5) COVID-19: PLAN: unvaccinated, continued hypoxia with worsening infiltrates on CXR, intubated, s/p decadron therapy (6) Hyperkalemia: PLAN: resolved with dialysis (7) Hyperphosphatemia: PLAN: add binders (8) Pneumococcal pneumonia (streptococcus pneumoniae pneumonia): PLAN: with H influenza started on iv antibiotics, still with febrile illness, leukocytosis slightly improved today. (9) Sepsis: PLAN: blood cx pending. Pressor support as needed.
[2021-05-07 15:45] LABS: Pathologist Review Reviewed
[2021-05-07] MEDS: Acetaminophen 650 MG/20 ML UDC GT (16:27)
[2021-05-08] VITALS (59 sets, daily range): BP systolic 79–120; BP diastolic 42–79; PULSE 70–93; RESP 17–21; TEMP 37.2–38.2; O2SAT 87–95
[2021-05-08] MEDS: Propofol 10MG/Ml 1,000 MG/100 ML Bottle 35.7 MG CONT INF ×2 (02:24→05:00)
[2021-05-08 04:44] LABS: Absolute Lymphocyte Count 0.52 X10^3/uL (0.83-4.51); Absolute Neutrophil Count 33.9 X10^3/uL (2.0-7.7); Basophil# 0.15 X10^3/uL; Basophil% 0.4 % (0-1); Eosinophil# 0.16 X10^3/uL; Eosinophils% 0.4 % (0-5); Hematocrit 28.9 % (40-54); Hemoglobin 9.3 g/dL (13.0-16.5); Lymphocyte # 0.52 X10^3/ul (0.83-4.51); Lymphocyte % 1.4 % (19-41); Mean Corp Hgb Conc 32.2 g/dL (32-36); Mean Corpuscular Hgb 28.6 pg (27.0-32.0); Mean Corpuscular Volume 88.9 fL (80-94); Mean Platelet Vol. 10.4 fl (6.2-12.0); Monocyte# 1.58 X10^3/uL; Monocyte% 4.2 % (0-10); Neutrophil # 33.92 X10^3/uL (2.7-7.7); Neutrophil % 90.5 % (47-70); POSITIVE COUNT YES; POSITIVE DIFFERENTIAL YES; Platelet Count 198 K/mm3 (150-450); RBC Distribution Width CV 14.5 % (11.6-14.6); RBC Distribution Width SD 46.5 fl (35.1-43.9); Red Blood Count 3.25 M/mm3 (4.6-6.2); White Blood Count 37.5 K/mm3 (4.4-11.0)
[2021-05-08 04:54] LABS: Partial Thromboplast Time 71.7 Seconds (24.1-36.2)
[2021-05-08] MEDS: NEPRO TUBE FEED 1,000 ML 50 ML GT (04:58)
[2021-05-08] MEDS: CHLORHEXIDINE GLUC 2% CLOTH 1 EACH TOWELETTE TOPICAL ×2 (04:58→08:41)
[2021-05-08 04:59] LABS: ALB/GLOB Ratio 0.3 RATIO (0.9-2.4); AST(SGOT) 92 U/L (15-37); Alanine Aminotransfer ALT/SGPT 42 U/L (16-61); Albumin, Serum 1.3 g/dL (3.2-5.0); Alkaline Phosphatase 217 U/L (45-117); Anion Gap 16 (5-15); BUN 63 mg/dL (7-18); BUN/Creat Ratio 11.4 RATIO (10-20); Calcium,Total 7.5 mg/dL (8.5-10.1); Chloride 89 mmol/L (98-107); Creatinine, Serum 5.53 mg/dL (0.70-1.30); EST Glomerular Filtration Rate 12 mL/min (>60); Est Glom Filt Rate - Afr Amer 14 mL/min (>60); Estimated Creatinine Clearance 18.66 ml/min; Globulin 4.9 g/dL (2.2-4.2); Glucose 129 mg/dL (74-106); Potassium 4.5 mmol/L (3.5-5.1); Protein, Total 6.2 g/dL (6.4-8.2); Sodium Level 128 mmol/L (136-145)
[2021-05-08 05:18] LABS: Phosphorus 10.6 mg/dL (2.5-4.9)
[2021-05-08 05:22] LABS: Differential Indicated SCAN CRITERIA MET
[2021-05-08 05:25] LABS: CPK Total, Creatine Kinase 1795 U/L (39-308); Triglycerides 292 mg/dL
--- NOTE | 2021-05-08 06:16 | PN.CC_ITS ---
Assessment & Plan Assessment/Plan (1) Acute respiratory failure with hypoxia: (2) COVID-19: (3) CKD (chronic kidney disease), stage IV: (4) Hyperphosphatemia: (5) History of polycystic kidney disease: PLAN: RECOMMENDATIONS: 1. Continue assist control mode of mechanical ventilation. Wean FiO2/PEEP for saturations greater than 90%. 2. Continue proning trials. 3. In light of the patient's further clinical decompensation, will re-broaden antibiotics. 4. Continue heparin infusion as ordered. 5. Dialysis support with volume removal. Plan to attempt ultrafiltration today. 6. Continue appropriate GI prophylaxis. 7. Tube feeds as tolerated. 8. Continue vasopressor support to maintain a mean arterial pressure at or above 65 mmHg. 9. Ongoing goals of care discussion with the patient's family. Prognosis is poor. IMPRESSIONS: 1. Acute hypoxic respiratory failure secondary to COVID-19 combined with superimposed bacterial pneumonia The patient was initially admitted to the hospital on April 23. His hospital course has been complicated by worsening hypoxemia and renal insufficiency. The patient is currently intubated with refractory hypoxemia, necessitating prone positioning. The patient was not a candidate for remdesivir or baricitinib due to renal insufficiency. He has completed a course of Decadron and remains on antimicrobials. Continue heparin infusion for now, given elevated D-dimer. Nephrology is currently following to assist with hemodialysis needs. In light of the patient's clinical decompensation over the last 24 hours, will broaden antimicrobial coverage. In addition, ultrafiltration will be attempted for volume removal, if tolerated by hemodynamics. 2. Acute on chronic kidney disease Likely secondary to acute Covid presentation/ATN. The patient has underlying chronic kidney disease secondary to polycystic kidney disease. Nephrology is currently following to assist with hemodialysis needs. 3. Septic shock Continue vasopressor support to maintain a mean arterial pressure at or above 65 mmHg. Continue antimicrobials as ordered. 4. Polycystic kidney/chronic kidney disease stage IV/obesity/nonvaccinated sta tus/depression Complicates care, management, recovery and prognosis. Continue current s upportive measures as noted above. Ongoing goals of care discussion with the patient's family. TIME: 33 minutes of critical care time, independent of procedures, was spent addressing the patient's acute hypoxemic respiratory failure secondary to COVID- 19 pneumonia, secondary bacterial pneumonia, acute on chronic kidney disease, septic shock, review of all data and collaboration with care team. Subjective Subjective The patient was seen and examined at the bedside this morning. Events from the last 24 hours have been reviewed. Today is day #8. The patient currently has a low-grade fever and remains hemodynamically stable on Levophed at 13 mcg/min. The patient remains on assist control mode of mechanical ventilation with an FiO2 requirement of 100% and PEEP of 18. He remains in prone position. The patient is sedated on propofol and fentanyl. He is currently tolerating tube feeds. The patient remains on a continuous heparin infusion without any bleeding sequelae. The patient is currently documented to be overall net +16.3 L for the hospitalization. The patient remains on antimicrobials. White count is elevated at 37,000. Objective Data Objective Data The patient's most recent lab work, culture data and imaging studies have all been personally reviewed. Rapid coronavirus antigen testing was positive on April 23. Sputum culture was positive for Streptococcus pneumonia and Haemophilus influenza. Blood cultures have not demonstrated any growth to date. Vital Signs: Vital Signs Temp Pulse Resp BP Pulse Ox 99.5 F H 89 18 114/67 95 05/08/21 05:00 05/08/21 05:00 05/08/21 05:00 05/08/21 05:00 05/08/21 05:00 Oxygen Flow Rate (L/min) 60 Oxygen Delivery Method Mechanical Ventilator Weight: 118.7 kg Body Mass Index (BMI) 35.6 Intake & Output: Intake and Output for Last 24 Hours 05/06/21 05/07/21 05/08/21 23:59 23:59 23:59 Intake Total 2431.70 / 2454.70 3445.83 / 3640.08 853.42 / 853.42 Output Total 1175 / 1175 50 / 50 Balance 1256.70 / 1279.70 3395.83 / 3590.08 853.42 / 853.42 Lab / Micro Data Attestation: I reviewed the patient's lab results. Result Diagrams: 05/08/21 04:35 05/08/21 04:35 Labs: Laboratory Results - last 24 hr 05/06/21 04:10: Diff Path Review Reviewed 05/07/21 04:30: Absolute Neuts (auto) 23.3 H, Absolute Lymphs (auto) 1.73, Total Counted 100, Neutrophils % (Manual) 72 H, Band Neutrophils % 9 H, Lymphocytes % (Manual) 3 L, Monocytes % (Manual) 8, Eosinophils % (Manual) 1, Metamyelocytes % 1, Myelocytes % 1 H, Promyelocytes % 2 H, Diff Path Review Reviewed, Platelet Estimate ADEQUATE, RBC Morphology NORM C+C 05/08/21 04:35: WBC 37.5 H*, RBC 3.25 L, Hgb 9.3 L, Hct 28.9 L, MCV 88.9, MCH 28.6, MCHC 32.2, RDW Std Deviation 46.5 H, RDW Coeff of Martita 14.5, Plt Count 198, MPV 10.4, Immature Gran % (Auto) 3.100 H, Neut % (Auto) 90.5 H, Lymph % (Auto) 1.4 L, [place] % (Auto) 4.2, Eos % (Auto) 0.4, Baso % (Auto) 0.4, Absolute Neuts (auto) 33.9 H, Absolute Lymphs (auto) 0.52 L, Nucleated RBC % 1.0, Diff Path Review May 05/08/21 04:35: Sodium 128 L, Potassium 4.5, Chloride 89 L, Carbon Dioxide 23.0, Anion Gap 16 H, BUN 63 H, Creatinine 5.53 H, Estim Creat Clear Calc 18.66, Est GFR (MDRD) Af Amer 14 L, Est GFR (MDRD) Non-Af 12 L, BUN/Creatinine Ratio 11.4, Glucose 129 H, Calcium 7.5 L, Total Bilirubin 0.80, AST 92 H, ALT 42, Alkaline Phosphatase 217 H, Total Protein 6.2 L, Albumin 1.3 L, Globulin 4.9 H, Albumin/Globulin Ratio 0.3 L 05/08/21 04:35: Phosphorus 10.6 H* 05/08/21 04:35: APTT 71.7 H 05/08/21 04:35: Total Creatine Kinase 1795 H, Triglycerides 292 H Micro: Microbiology 05/05/21 14:20 Blood Culture (Wb) - Dialysis/Fistula Blood Culture - Preliminary No growth in 48 hours. 05/05/21 11:30 Blood Culture (Wb) - Other Blood Culture - Preliminary No growth in 48 hours. 05/01/21 16:57 Sputum, Induced/Lukens Gram Stain - Final 05/01/21 16:57 Sputum, Induced/Lukens Respiratory Culture - Final Streptococcus pneumoniae Haemophilus influenzae 04/29/21 04:00 Urine, Clean Catch Legionella Antigen - Final 04/29/21 04:00 Urine, Clean Catch Streptococcus pneumoniae Antigen (M - Final 04/23/21 12:22 Nasal Secretion SARS-CoV-2 Antigen (Rapid) - Final SARS-CoV-2 (COVID 19) Physical Exam Const no apparent distress Constitutional Narrative: Currently in prone position. General Appearance: intubated and patient mechanically ventilated Nutritional Appearance: morbidly obese HEENT normocephalic and head/scalp atraumatic Mouth: endotracheal tube in place and OG tube in place Eyes PERRL and conjunctivae normal Neck supple General: trachea midline and CVC in place Chest Chest Narrative: + Crepitus Resp Auscultation: rales and diminished lung sounds; Negative for rhonchi or wheezes Cardio regular rate and regular rhythm GI normal to inspection, nondistended, normoactive bowel sounds Extremity no clubbing, cyanosis or edema Skin Wound Narrative: Sacral decubitus ulcer present Neuro Sensorium / Orientation: sedated on vent Charges/Coding Procedures Hospitalists Procedures: [id number] Critial Care 1st Hr
[2021-05-08] MEDS: Ipratropium/Albuterol Sulfate 3 ML AMPUL.NEB INHALATION ×2 (06:57→19:25)
[2021-05-08] MEDS: TITRATION PARAMETER CHANGE 1 EACH IV (07:00)
[2021-05-08] MEDS: Propofol 10MG/Ml 1,000 MG/100 ML Bottle 35.6 MG CONT INF ×7 (07:49→23:56)
[2021-05-08] MEDS: Chlorhexidine 15 ML PO ×2 (08:41→20:26)
[2021-05-08] MEDS: Nystatin Powder 15gm Bottle 1 APPLIC TOPICAL ×2 (08:41→20:26)
[2021-05-08] MEDS: Senna/Docusate Sodium 1 Tablet 2 TABLET GT ×2 (08:46→20:26)
--- NOTE | 2021-05-08 08:55 | PN.RENAL_ITS ---
Subjective Subjective Hypotensive on increased pressors, worsening hypoxia, anuric. Sedate on vent. Only able to tolerate 1L fluid removal on dialysis last treatment. Objective Data Objective Data Vital Signs: Vital Signs Temp Pulse Resp BP Pulse Ox 99.4 F H 89 18 95/59 L 91 05/08/21 07:00 05/08/21 07:41 05/08/21 07:00 05/08/21 07:00 05/08/21 07:00 Oxygen Flow Rate (L/min) 60 Oxygen Delivery Method Mechanical Ventilator Weight: 118.7 kg Body Mass Index (BMI) 35.6 Intake & Output: Intake and Output for Last 24 Hours 05/06/21 05/07/21 05/08/21 23:59 23:59 23:59 Intake Total 2431.70 / 2454.70 3445.83 / 3640.08 1057.97 / 1057.97 Output Total 1175 / 1175 50 / 50 Balance 1256.70 / 1279.70 3395.83 / 3590.08 1057.97 / 1057.97 Lab / Micro Data Result Diagrams: 05/08/21 04:35 05/08/21 04:35 Labs: Laboratory Results - last 24 hr 05/06/21 04:10: Diff Path Review Reviewed 05/07/21 04:30: Diff Path Review Reviewed 05/08/21 04:35: WBC 37.5 H*, RBC 3.25 L, Hgb 9.3 L, Hct 28.9 L, MCV 88.9, MCH 28.6, MCHC 32.2, RDW Std Deviation 46.5 H, RDW Coeff of Martita 14.5, Plt Count 198, MPV 10.4, Immature Gran % (Auto) 3.100 H, Neut % (Auto) 90.5 H, Lymph % (Auto) 1.4 L, [place] % (Auto) 4.2, Eos % (Auto) 0.4, Baso % (Auto) 0.4, Absolute Neuts (auto) 33.9 H, Absolute Lymphs (auto) 0.52 L, Nucleated RBC % 1.0, Diff Path Review May 05/08/21 04:35: Sodium 128 L, Potassium 4.5, Chloride 89 L, Carbon Dioxide 23.0, Anion Gap 16 H, BUN 63 H, Creatinine 5.53 H, Estim Creat Clear Calc 18.66, Est GFR (MDRD) Af Amer 14 L, Est GFR (MDRD) Non-Af 12 L, BUN/Creatinine Ratio 11.4, Glucose 129 H, Calcium 7.5 L, Total Bilirubin 0.80, AST 92 H, ALT 42, Alkaline Phosphatase 217 H, Total Protein 6.2 L, Albumin 1.3 L, Globulin 4.9 H, Albumin/Globulin Ratio 0.3 L 05/08/21 04:35: Phosphorus 10.6 H* 05/08/21 04:35: APTT 71.7 H 05/08/21 04:35: Total Creatine Kinase 1795 H, Triglycerides 292 H Micro: Microbiology 05/05/21 14:20 Blood Culture (Wb) - Dialysis/Fistula Blood Culture - Preliminary No growth in 48 hours. 05/05/21 11:30 Blood Culture (Wb) - Other Blood Culture - Preliminary No growth in 48 hours. 05/01/21 16:57 Sputum, Induced/Lukens Gram Stain - Final 05/01/21 16:57 Sputum, Induced/Lukens Respiratory Culture - Final Streptococcus pneumoniae Haemophilus influenzae 04/29/21 04:00 Urine, Clean Catch Legionella Antigen - Final 04/29/21 04:00 Urine, Clean Catch Streptococcus pneumoniae Antigen (M - Final 04/23/21 12:22 Nasal Secretion SARS-CoV-2 Antigen (Rapid) - Final SARS-CoV-2 (COVID 19) Physical Exam Const General Appearance: patient mechanically ventilated Resp clear to auscultation bilaterally Resp Narrative: on vent sedate Cardio regular rate GI non-tender and non-distended Auscultation: hypoactive bowel sounds Palpation: soft Assessment & Plan Assessment/Plan (1) BEST (acute kidney injury): PLAN: acute on CKD Stage 4 due to COVID/ATN/sepsis syndrome. Remains oligoanuric with rising creatinine between dialysis. Hypotensive requiring pressors, hypoxemia persists. Only able to tolerate 1L fluid removal last treatment. Will try to IUF today as tolerated with pressor support. DW CCM Still on vent with leukocytosis despite iv antibx.Overall prognosis poor. (2) Acute respiratory failure with hypoxia: PLAN: on vent, sedate. (3) CKD (chronic kidney disease), stage IV: PLAN: d/t PCKD. 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 (4) History of polycystic kidney disease: (5) COVID-19: PLAN: unvaccinated, continued hypoxia with worsening infiltrates on CXR, intubated, s/p decadron therapy (6) Hyperkalemia: PLAN: resolved with dialysis (7) Hyperphosphatemia: PLAN: add binders (8) Pneumococcal pneumonia (streptococcus pneumoniae pneumonia): PLAN: with H influenza started on iv antibiotics. leukocytosis worse today. ID following (9) Sepsis: PLAN: blood cx no growth so far. Pressor support as needed. (10) Hyponatremia: PLAN: attempt fluid removal with IUF today
[2021-05-08] MEDS: Ceftriaxone 1 GM/50 ML BAG IV (09:27)
--- NOTE | 2021-05-08 09:30 | RAD_ITS ---
INDICATION: Respiratory Failure EXAMINATION/TECHNIQUE: X-RAY - XR Chest 1 View COMPARISON: 05/05/2021. FINDINGS: LINES/DEVICES: Endotracheal tube visualized with tip 5.5 cm above the ant. Gastric tube is visualized in the stomach. Right IJ catheter visualized with tip in the SVC. Left IJ central catheter visualizes tip in the SVC. LUNGS: Prominence of the bronchovascular interstitial lung markings is visualized bilaterally, patchy airspace opacification visualized in bilateral lung diaz most prominent in the left lung field, increased opacification is visualized in comparison to the prior study. Emphysematous changes is visualized. No evidence of pleural effusion is seen. No evidence of pneumothorax or parenchymal lung mass. MEDIASTINUM AND CARDIOVASCULAR STRUCTURES: No evidence of cardiomegaly, cardiac mediastinal silhouette is obscured by the overlying parenchymal lung opacification. BONES AND SOFT TISSUES: The bones are unremarkable for the patient''s age. RAD/Chest 1 View (Portable) IMPRESSION: Bilateral airspace opacification demonstrates progression in comparison to the prior study. Electronically Signed: Ajay Rodas MD at 11:16 EST Tel , Service support ,
--- NOTE | 2021-05-08 11:47 | CHAPLAIN ---
Type of Pastoral Visit ___ Initial Visit _x__ Follow-up Visit ___ On-call Visit ___ General Patient Visit ___ Spiritual Assessment ___ Family Conference ___ Bereavement ___ Rapid Response ___ Code Blue ___ Other (describe below) Pastoral Care Referral From ___ Patient _x__ Family ___ Nurse ___ Physician ___ Studio Sales Associate ___ Booster Operator ___ Other (describe below) Sacrament/Intervention ___ Active listening ___ Anointing ___ Baptist ___ Bereavement ___ Communion ___ Cristina exploration ___ ___ Life review ___ Prayer ___ Reconciliation ___ Sacrament of Sick _x__ Supportive presence ___ Wedding ___ Other (describe below) Pastoral Comments checked on patient who is having dialysis as daughter is expected to come for visit today; met with daughter when she arrived and notified RN; offered support
[2021-05-08 12:40] LABS: Urine Sodium 79 mmol/L (Not Establ.)
[2021-05-08 13:46] LABS: Pathologist Review Reviewed
[2021-05-08] MEDS: Phenylephrine 1 MG/10 ML SYRINGE 0.15 MG IV (13:46)
--- NOTE | 2021-05-08 13:49 | DIALYSIS ---
IUF discontinued 45 minutes early due to hypotension per Dr. Varghese. UF of 600ml. Dialysis catheter closed with heparin per fill volume. Caps placed. See tx sheet for more details. Report was given to LETY Barfield
[2021-05-08] MEDS: Heparin 10,000 UNITS/10 ML Vial 2800 UNITS IV (13:58)
--- NOTE | 2021-05-08 14:55 | PN.HOSP_ITS ---
Subjective Subjective The patient remains ventilated on AC mode. On Levophed. Low-grade fever. On IV heparin drip Objective Data Objective Data Vital Signs: Vital Signs Temp Pulse Resp BP Pulse Ox 99.0 F 84 18 97/58 L 89 05/08/21 13:00 05/08/21 13:00 05/08/21 13:00 05/08/21 14:30 05/08/21 13:00 Oxygen Flow Rate (L/min) 60 Oxygen Delivery Method Mechanical Ventilator Weight: 261 lb 11.019 oz Body Mass Index (BMI) 35.6 Intake & Output: Intake and Output for Last 24 Hours 05/06/21 05/07/21 05/08/21 23:59 23:59 23:59 Intake Total 2431.70 / 2454.70 3445.83 / 3640.08 2824.52 / 2824.52 Output Total 1175 / 1175 50 / 50 45 / 45 Balance 1256.70 / 1279.70 3395.83 / 3590.08 2779.52 / 2779.52 Lab / Micro Data Result Diagrams: 05/08/21 04:35 05/08/21 04:35 Labs: Laboratory Results - last 24 hr 05/07/21 04:30: Diff Path Review Reviewed 05/08/21 04:35: WBC 37.5 H*, RBC 3.25 L, Hgb 9.3 L, Hct 28.9 L, MCV 88.9, MCH 28.6, MCHC 32.2, RDW Std Deviation 46.5 H, RDW Coeff of Martita 14.5, Plt Count 198, MPV 10.4, Immature Gran % (Auto) 3.100 H, Neut % (Auto) 90.5 H, Lymph % (Auto) 1.4 L, [place] % (Auto) 4.2, Eos % (Auto) 0.4, Baso % (Auto) 0.4, Absolute Neuts (auto) 33.9 H, Absolute Lymphs (auto) 0.52 L, Nucleated RBC % 1.0, Diff Path Review Reviewed 05/08/21 04:35: Sodium 128 L, Potassium 4.5, Chloride 89 L, Carbon Dioxide 23.0, Anion Gap 16 H, BUN 63 H, Creatinine 5.53 H, Estim Creat Clear Calc 18.66, Est GFR (MDRD) Af Amer 14 L, Est GFR (MDRD) Non-Af 12 L, BUN/Creatinine Ratio 11.4, Glucose 129 H, Calcium 7.5 L, Total Bilirubin 0.80, AST 92 H, ALT 42, Alkaline Phosphatase 217 H, Total Protein 6.2 L, Albumin 1.3 L, Globulin 4.9 H, Albumin/Globulin Ratio 0.3 L 05/08/21 04:35: Phosphorus 10.6 H* 05/08/21 04:35: APTT 71.7 H 05/08/21 04:35: Total Creatine Kinase 1795 H, Triglycerides 292 H 05/08/21 12:13: Ur Random Sodium 79 Micro: Microbiology 05/05/21 14:20 Blood Culture (Wb) - Dialysis/Fistula Blood Culture - Pre liminary No growth in 48 hours. 05/05/21 11:30 Blood Culture (Wb) - Other Blood Culture - Preliminary No growth in 48 hours. 05/01/21 16:57 Sputum, Induced/Lukens Gram Stain - Final 05/01/21 16:57 Sputum, Induced/Lukens Respiratory Culture - Final Streptococcus pneumoniae Haemophilus influenzae 04/29/21 04:00 Urine, Clean Catch Legionella Antigen - Final 04/29/21 04:00 Urine, Clean Catch Streptococcus pneumoniae Antigen (M - Final 04/23/21 12:22 Nasal Secretion SARS-CoV-2 Antigen (Rapid) - Final SARS-CoV-2 (COVID 19) Radiography Diagnostic Testing: Radiology Impression Chest X-Ray 05/08/21 09:30 IMPRESSION: Bilateral airspace opacification demonstrates progression in comparison to the prior study. Electronically Signed: Ajay Rodas MD at 11:16 EST Tel , Service support , Physical Exam Narrative General: Sedated on ventilator. HEENT: Atraumatic, PERRLA, EOMI, Normocephalic Oral: ET and OG tube Neck: Supple, No JVD, Negative Carotid Bruits Lungs: Air entry diminished in bilateral lung bases. On vent support. Cardiovascular: Sinus rhythm, Normal S1, Normal S2, No murmurs Abdomen: Bowel Sounds sluggish, soft, Non Tender, Non-Distended : No renal angle tenderness. No suprapubic tenderness. Extremities: No edema, Capillary Refill Less than 3 Seconds Skin: No rashes, No breakdown Musculoskeletal: No Tenderness to Palpation of Joints or Extremities. Neurological: Sedated. Psych/Mental Status: Assessment & Plan Assessment/Plan (1) Acute respiratory failure with hypoxia: (2) BEST (acute kidney injury): (3) COVID-19: PLAN: Patient is a 45-year-old gentleman who presented with 2-week history of body aches cough and headache. Diagnosed with COVID-19. Patient hospital stay complicated by acute hypoxic respiratory failure resulting in patient being intubated. Hospital stay has also been complicated by acute renal failure. 1. Acute hypoxic respiratory failure due to bilateral COVID-19 pneumonia Patient respiratory status deteriorated resulting in patient being intubated on 05/01/202105/07: On AC mode of ventilator. Intermittent proning trial as tolerated by patient. 05/08: 100% FiO2, PEEP 18. From positioning. On propofol and fentanyl. 2. COVID-19 pneumonia with bacterial superinfection resulting into septic shock ?Complicated by acute hypoxic respiratory failure, pneumomediastinum and pneumothorax. Patient completed a course of Decadron. Patient out of isolation on 05/06/2021. Was deemed not a candidate for remdesivir on admission due to impaired kidney function. Sputum culture growing Haemophilus influenzae and Streptococcus pneumoniae. 05/08: On 3 vasopressors. Norepinephrine, vasopressin and phenylephrine. Antimicrobial broadened to IV meropenem. 3. 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 Hyponatremia and hypochloremia. 4. Chronic kidney disease stage IV -Secondary to underlying polycystic kidney disease 5. Hyperkalemia ?Secondary to underlying acute kidney injury patient to undergo dialysis 6. Essential hypertension 7. Dyslipidemia ?Patient was on pravastatin prior to his admission 8. Hypothyroidism ?On levothyroxine 9. DVT prophylaxis ?On systemic anticoagulation, heparin drip. 10. Class II obesity ?With BMI of 35.9 Active Medications Acetaminophen (Acetaminophen 650 Mg/20 Ml Udc) 650 mg GT Q6H PRN PRN PRN Reason: Pain 1-10 or Fever Last Admin: 05/07/21 16:27 Dose: 650 mg Documented by: Albuterol/Ipratropium (Ipratropium/Albuterol Sulfate 3 Ml Ampul.Neb) 3 ml INHALATION Q6HWA.RT MICHAEL Last Admin: 05/08/21 06:57 Dose: 3 ml Documented by: Chlorhexidine Gluconate (Chlorhexidine 15 Ml) 15 ml PO BID MICHAEL Last Admin: 05/08/21 08:41 Dose: 15 ml Documented by: Chlorhexidine Gluconate (Chlorhexidine Gluc 2% Cloth 1 Each Towelette) 1 each TOPICAL DAILY MICHAEL Last Admin: 05/08/21 08:41 Dose: 1 each Documented by: Heparin Sodium (Porcine) (Heparin Injection (Vial) 5,000 Unit/Ml Vial) 0 unit IV UD PRN; Protocol PRN Reason: dose adjustment Heparin Sodium (Porcine) (Heparin 10,000 Units/10 Ml Vial) 2,800 units IV X1 PRN PRN Reason: DIALYSIS Last Admin: 05/08/21 13:58 Dose: 2,800 units Documented by: Sodium Chloride () 250 mls @ 15 mls/hr IV .[id number] PRN PRN Reason: Saline Flush Last Infusion: 05/07/21 20:23 Dose: 0 mls/hr Documented by: Sodium Chloride () 250 mls @ 15 mls/hr IV .[id number] PRN PRN Reason: Additional IVPB Infusion Propofol (Diprivan) 1,000 mg in 100 mls @ 7.122 mls/hr CONT INF .Q12H [facility]; Protocol Last Titration: 05/08/21 14:00 Dose: 50 mcg/kg/min, 35.6 mls/hr Documented by: Fentanyl Citrate 1,000 mcg/ (Sodium Chloride) 100 mls @ 2.5 mls/hr CONT INF .Q40H [facility]; Protocol Last Titration: 05/08/21 14:00 Dose: 200 mcg/hr, 20 mls/hr Documented by: Sodium Chloride () 250 mls @ 15 mls/hr IV .[id number] PRN PRN Reason: Saline Flush Sodium Chloride () 250 mls @ 15 mls/hr IV .[id number] PRN PRN Reason: Additional IVPB Infusion Pantoprazole Sodium 40 mg/ (Sodium Chloride) 110 mls @ 330 mls/hr IV Q24 [facility] Last Infusion: 05/08/21 09:07 Dose: Infused Documented by: Heparin Sodium (Porcine) 25, (000 unit/ Dextrose) 250 mls @ 16 mls/hr CONT INF .[id number] [facility]; Protocol Last Admin: 05/08/21 13:02 Dose: 1,600 units/hr, 16 mls/hr Documented by: Norepinephrine Bitartrate 8 mg (/ Sodium Chloride) 250 mls @ 9.375 mls/hr CONT INF .[id number] MICHAEL; Protocol Last Admin: 05/08/21 14:40 Dose: 30 mcg/min, 56.3 mls/hr Documented by: Enteral Nutritional Formula (Nepro Carb Steady) 1,000 mls @ 50 mls/hr GT .Q20H MICHAEL Last Admin: 05/08/21 04:58 Dose: 50 mls/hr Documented by: Vasopressin 20 units/ Sodium (Chloride) 25 mls @ 3 mls/hr IV .[id number] MICHAEL Last Admin: 05/08/21 10:28 Dose: 0.04 units/min, 3 mls/hr Documented by: Vancomycin IV-PHARMACY TO DOSE (1 each/ Sodium Chloride) 500 mls @ 250 mls/hr IV X1 PRN; Protocol PRN Reason: Rx to Dose Meropenem 1 gm/ Sodium (Chloride) 120 mls @ 33 mls/hr IV QHS [facility] Phenylephrine HCl 10 mg/ (Sodium Chloride) 250 mls @ 15 mls/hr CONT INF .[id number] [facility]; Protocol Last Admin: 05/08/21 14:30 Dose: 10 mcg/min, 15 mls/hr Documented by: Nystatin (Nystatin Powder 15gm Bottle) 1 applic TOPICAL BID MICHAEL; Protocol Last Admin: 05/08/21 08:41 Dose: 1 applic Documented by: Senna/Docusate Sodium (Senna/Docusate Sodium 1 Tablet) 2 tablet GT BID MICHAEL Last Admin: 05/08/21 08:46 Dose: 2 tablet Documented by: Sodium Chloride (0.9% Saline Lock 10 Ml Syringe) 10 - 40 ml IV UD PRN PRN Reason: SALINE FLUSH Last Admin: 05/05/21 21:52 Dose: 40 ml Documented by: Sodium Chloride (0.9% Normal Saline 100 Ml Iv.Soln.) 200 ml IV X1 PRN PRN Reason: to maintain SBP >90 during Dialysis Charges/Coding Visit Charges Inpatient E&M: 95751 Subs Hosp L3
[2021-05-08] MEDS: Acetaminophen 650 MG/20 ML UDC GT (20:27)
[2021-05-09] VITALS (11 sets, daily range): BP systolic 77–94; BP diastolic 45–49; PULSE 36–93; RESP 18; TEMP 38.3–38.8; O2SAT 88–92
--- NOTE | 2021-05-09 02:40 | EKG12_ITS ---
Test Reason : A-FIB Blood Pressure : / mmHG Vent. Rate : 071 BPM Atrial Rate : 077 BPM P-R Int : 000 ms QRS Dur : 098 ms QT Int : 418 ms P-R-T Axes : 000 036 151 degrees QTc Int : 454 ms Atrial fibrillation with a competing junctional pacemaker Low voltage QRS ST & T wave abnormality, consider lateral ischemia Abnormal ECG Confirmed by LUIZ RAHMAN, SERA ([id number]), loan expeditor JONY LANDRUM ([id number]) on 05/22/2021 8:19:32 AM Referred By: PACO Confirmed By:SERA DEE MD
[2021-05-09] MEDS: Propofol 10MG/Ml 1,000 MG/100 ML Bottle 21.4 MG CONT INF (02:44)
[2021-05-09 03:20] LABS: Hematocrit 27.2 % (40-54); Hemoglobin 8.6 g/dL (13.0-16.5); Mean Corp Hgb Conc 31.6 g/dL (32-36); Mean Corpuscular Hgb 28.6 pg (27.0-32.0); Mean Corpuscular Volume 90.4 fL (80-94); Mean Platelet Vol. 10.6 fl (6.2-12.0); POSITIVE COUNT YES; POSITIVE DIFFERENTIAL YES; POSITIVE MORPHOLOGY YES; Platelet Count 190 K/mm3 (150-450); RBC Distribution Width CV 15.1 % (11.6-14.6); RBC Distribution Width SD 49.8 fl (35.1-43.9); Red Blood Count 3.01 M/mm3 (4.6-6.2); White Blood Count 42.5 K/mm3 (4.4-11.0)
[2021-05-09 03:34] LABS: Partial Thromboplast Time 90.6 Seconds (24.1-36.2)
[2021-05-09 03:42] LABS: Differential Indicated MANUAL DIFF
[2021-05-09 03:45] LABS: ALB/GLOB Ratio 0.2 RATIO (0.9-2.4); AST(SGOT) 110 U/L (15-37); Alanine Aminotransfer ALT/SGPT 46 U/L (16-61); Albumin, Serum 1.1 g/dL (3.2-5.0); Alkaline Phosphatase 209 U/L (45-117); Anion Gap 16 (5-15); BUN 68 mg/dL (7-18); BUN/Creat Ratio 10.5 RATIO (10-20); Calcium,Total 6.7 mg/dL (8.5-10.1); Chloride 89 mmol/L (98-107); Creatinine, Serum 6.48 mg/dL (0.70-1.30); EST Glomerular Filtration Rate 10 mL/min (>60); Est Glom Filt Rate - Afr Amer 12 mL/min (>60); Estimated Creatinine Clearance 15.93 ml/min; Globulin 4.8 g/dL (2.2-4.2); Glucose 105 mg/dL (74-106); Potassium 6.6 mmol/L (3.5-5.1); Protein, Total 5.9 g/dL (6.4-8.2); Sodium Level 124 mmol/L (136-145)
[2021-05-09 04:26] LABS: Absolute Neutrophil Count 36.1 X10^3/uL (2.0-7.7)
[2021-05-09 04:27] LABS: Absolute Lymphocyte Count 0.42 X10^3/uL (0.83-4.51); Eosinophil 2 % (0-5); Lymphocyte 1 % (19-41); Metamyelocyte 2 % (0-1); Monocyte 9 % (0-10); Myelocyte 1 % (0-0); Neutrophil-Band 13 % (0-5); Neutrophil-Segmented 72 % (47-70); Nucleated Red Bld Cells,Manual 2 % (0-5); Platelet Estimate ADEQUATE (ADEQ); Red Cell Morphology NORM C+C NORMAL (NORM C&C); Total Cells Counted 100 (MANUAL DIFF)
[2021-05-09 04:28] LABS: Polychromasia RARE; Tear Drop Cell RARE
--- NOTE | 2021-05-09 06:23 | NURSING ---
0545- At bedside assessing patient. Both daughters of patient are at bedside at this time. Patient is starting to love down into 30s maxed on levo, vaso, and neela. 0551- Monitor is Asystole. No heart or lung sounds heard. Double verified with Napoleon Vyas RN at this time. Dr. Serrano aware. Time of 0551.
--- NOTE | 2021-05-09 09:54 | PCM.DEATH ---
Preliminary Cause of Preliminary Cause of Preliminary Cause of : 1. septic shock bilateral COVID-19 pneumonia and superimposed bacterial superinfection 2. Acute hypoxic respiratory failure due to COVID-19 pneumonia with bacterial superinfection 3. Bialteral COVID-19 pneumonia with bacterial superinfection 4. Acute kidney injury on CKD stage IV with hyperkalemia 5. Hyperkalemia Date of Admission: 04/23/21 Date of : 05/09/21 Principle Diagnosis Problem List: Active and Suspected Problems (Updated 05/08/21 @ 09:[address] Tamika Varghese, DO) Hyponatremia (Acute) Sepsis (Acute) Pneumococcal pneumonia (streptococcus pneumoniae pneumonia) (Acute) Acute respiratory failure with hypoxia (Acute) Hyperphosphatemia (Acute) Metabolic acidosis (Acute) Hyperkalemia (Acute) COVID-19 (Acute) BEST (acute kidney injury) (Acute) Hospital Course Patient is a 45-year-old gentleman who presented with 2-week history of body aches cough and headache. Diagnosed with COVID-19. Patient hospital stay complicated by acute hypoxic respiratory failure resulting in patient being intubated. Hospital stay has also been complicated by acute renal failure. 1. Acute hypoxic respiratory failure due to bilateral COVID-19 pneumonia Patient respiratory status deteriorated resulting in patient being intubated on 05/01/2021. On AC mode of ventilator. Intermittent proning trial as tolerated by patient. The patient was on maximum ventilator capacity, 100% FiO2, PEEP 18, PIP 33. 2. COVID-19 pneumonia with bacterial superinfection resulting into septic shock complicated by acute hypoxic respiratory failure, pneumomediastinum and pneumothorax Patient continued to spike fever despite oral antibiotic, T-max 101.8 Fahrenheit prior to .?. Patient completed a course of Decadron. Patient out of isolation on 05/06/2021. Was deemed not a candidate for remdesivir on admission due to impaired kidney function. Sputum culture growing Haemophilus influenzae and Streptococcus pneumoniae. Initially on IV ceftriaxone and then broadened to meropenem. Patient on 3 vasopressors norepinephrine, vasopressin and phenylephrine. 3. 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 Patient had hyperphosphatemia, hyperkalemia, hyponatremia and hypochloremia. 4. Chronic kidney disease stage IV -Secondary to underlying polycystic kidney disease 5. Hyperkalemia ?Secondary to underlying acute kidney injury patient to undergo dialysis 6. Essential hypertension 7. Dyslipidemia ?Patient was on pravastatin prior to his admission 8. Hypothyroidism ?On levothyroxine 9. DVT prophylaxis ?On systemic anticoagulation, heparin drip. 10. Class II obesity ?With BMI of 35.9 Patient DNR CC arrest. 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 Visit Charges Inpatient E&M: [id number] Disch Hosp
[2021-05-12 14:30] LABS: Pathologist Review Reviewed
== END 2021-05-09 09:10 | DRG 130 ==
LOC: ED 12:50 → MS3 14:22 → ICU 05-01 16:19
PROVIDERS: Hospitalist; Internal Medicine; Internal Medicine Critical Care Medicine; Internal Medicine Nephrology; Emergency Provider Emergency Medicine; PCP Nurse Practitioner Primary Care; Visit Provider Internal Medicine
DX: U07.1 COVID-19 (principal); J12.82 Pneumonia due to coronavirus disease 2019; J96.01 Acute respiratory failure with hypoxia; J98.2 Interstitial emphysema; J93.9 Pneumothorax, unspecified; N17.0 Acute kidney failure with tubular necrosis; A41.9 Sepsis, unspecified organism; R65.21 Severe sepsis with septic shock; J13 Pneumonia due to Streptococcus pneumoniae; B96.3 Hemophilus influenzae [H. influenzae] as the cause of diseases classified elsewhere; E88.09 Other disorders of plasma-protein metabolism, not elsewhere classified; E83.39 Other disorders of phosphorus metabolism; E87.1 Hypo-osmolality and hyponatremia; I12.9 Hypertensive chronic kidney disease with stage 1 through stage 4 chronic kidney disease, or unspecified chronic kidney disease; N18.4 Chronic kidney disease, stage 4 (severe); E87.2 Acidosis; E87.5 Hyperkalemia; E86.0 Dehydration; Q61.3 Polycystic kidney, unspecified; J45.20 Mild intermittent asthma, uncomplicated; E78.5 Hyperlipidemia, unspecified; E03.9 Hypothyroidism, unspecified; M10.9 Gout, unspecified; G43.909 Migraine, unspecified, not intractable, without status migrainosus; F32.A Depression, unspecified; E66.01 Morbid (severe) obesity due to excess calories; Z68.35 Body mass index [BMI] 35.0-35.9, adult; Z79.890 Hormone replacement therapy; Z79.899 Other long term (current) drug therapy
CPT/HCPCS: 31500; 31720; 36415; 36600; 71045; 71250; 74018; 76770; 80048; 80053; 80069; 81001; 81050; 82550; 82570; 82575; 82803; 84100; 84156; 84300; 84443; 84478; 85025; 85379; 85610; 85730; 87040; 87070; 87077; 87186; 87205; 87340; 87426; 87449; 90937; 93005; 94002; 94003; 94640; 94660; 94667; 94668; 94762; 97802; 97803; 99251; 99285; J2185; J7030; J7040; J7050; P9047; A4216; C1751; C1752; G0257; G0463; J0330; J1940; J3010; J3490